=== PATIENT | male | born 1980 | race Caucasian/White ===

== ENCOUNTER 2019-11-03 03:56 | Emergency (ER) | payer OTHER, SELFPAY ==
[2019-11-03 03:56] VITALS: BP 150/78; PULSE 113; RESP 20; TEMP 37.4; O2SAT 96
[2019-11-03 04:34] LABS: Hematocrit 45.9 % (40.0-54.0); Hemoglobin 14.9 g/dL (14.0-18.0); Mean Corpuscular HGB Conc 32.5 g/dL (32.0-36.0); Mean Corpuscular Hemoglobin 29.8 pg (27.0-31.0); Mean Corpuscular Volume 91.8 fL (78.0-102.0); Mean Platelet Volume 9.6 fl (8.7-11.0); Platelet Count Result 139 K/mm3 (150-420); Red Cell Distribution Width 15.1 % (11.6-14.4); White Blood Count 15.5 K/mm3 (4.8-10.8)
[2019-11-03 04:43] LABS: Anion Gap 9.4 mmol/L (7-16); Blood Urea Nitrogen 16 mg/dL (7-18); Calcium 8.6 mg/dL (8.5-10.1); Carbon Dioxide 32 mmol/L (21-32); Chloride 103 mmol/L (98-108); Estimated Glomerular Filt Rate > 60; Glucose 153 mg/dL (70-99); Osmolality Calculated 296 mOsm/kg (285-295); Potassium 3.4 mmol/L (3.5-5.1); Sodium 141 mmol/L (136-145)
[2019-11-03 04:44] LABS: CRP 1.8 mg/dL (0.0-0.9)
--- NOTE | 2019-11-03 04:50 | ED.SKABFB ---
HPI - Skin/Abscess/Foreign Bdy General Chief complaint: Skin/Abscess/Foreign Body Stated complaint: PAIN Source: patient History of Present Illness HPI narrative: 39-year-old white male presents with redness in his right lower extremity from just below the right knee down to his toes. He has a history of cellulitis and in the past. He said it does not seem to be as bad as last time when it looks like it was blistering. He denies any fever but he does say it chills. Symptoms began last evening. In the past Bactrim has worked well he is also taking clindamycin but not sure his insurance will cover clindamycin. complaint: rash Onset (ago): day(s) (1) Location: RLE Severity: similar to previous episodes Quality: burning and constant Pain Consistency: constant Relieving factors: none Exacerbating factors: palpation Associated symptoms: chills Treatments prior to arrival: none Related Data Home Medications Medication Instructions Recorded Confirmed simvastatin 40 mg PO DAILY 07/18/19 11/03/19 tramadol 50 mg PO Q6H PRN 07/18/19 11/03/19 triamterene-hydrochlorothiazid 1 tablet PO DAILY 07/18/19 11/03/19 Allergies Allergy/AdvReac Type Severity Reaction Status Date / Time No Known Allergies Allergy Unverified 05/23/16 12:48 Review of Systems Constitutional: Constitutional: Denies fever(s) and Denies weakness Eyes: Eyes: Reports no additional eye complaints Cardiovascular: Cardiovascular: Reports no additional cardiovascular complaints Respiratory: Respiratory: Reports no additional respiratory complaints Gastrointestinal: Gastrointestinal: Reports no additional gastrointestinal complaints, Denies nausea and Denies vomiting Musculoskeletal: Musculoskeletal: Reports no additional musculoskeletal complaints Neurologic: Reports system reviewed and no additional complaints, except as documented Allergic/Immunologic: Allergic/Immunologic: Reports no additional allergic/immunologic complaints PMFSH Past Medical History Medical History Backache Cellulitis of lower limb Cigarette smoker Hematochezia Hypercholesterolemia Hypersomnia with sleep apnea Hypertension Internal hemorrhoid, bleeding Lumbar radiculopathy, chronic Lymphedema Morbid exogenous obesity Non-nicotine vapor product user Otitis externa 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 Respiratory obstruction Vapes nicotine containing substance Surgical History Surgical History No history of previous surgery Family History Family History Mother COPD (chronic obstructive pulmonary disease) Hypertension Heart disease Hyperlipidemia Father Hypertension Social History Social History Years smoked: 20 Smoking status: Current every day smoker Tobacco type: e-cigarettes Alcohol intake: current Drinks per week: 1 Substance use: never Substance use type: does not use Gender identity (if verbalized by the patient): Male Spiritual care concerns: No Agree to blood products: Yes Exam Const: General: healthy appearing, no acute distress and alert Nutritional Appearance: well nourished and obese morbidly obese Orientation/consciousness: patient oriented x3 HENMT: Head: normal to inspection Ears: external ears normal General nose exam: Normal external nose present Face and sinus: normal facial exam Mouth: Yes moist mucous membranes Eyes: Conjunctivae: conjunctivae normal Pupils: Equal, round and reactive pupils present EOM: EOMs intact bilaterally Neck: Neck: normal visual inspection Resp: Effort & Inspection: normal respiratory effort Auscultation: clear to auscultation bilaterally Cardio: Rate: regular rate Rhythm: regular rhythm GI: Auscultation: normal bowel sounds Back/Spine/Pelvis: Cervical Spine: cervical ROM normal Thoracic/Lumbar Spine: thoraco-lumbar ROM normal
[2019-11-03 05:05] VITALS: TEMP 37.4
== END 2019-11-03 05:05 | disposition home or self-care (01) ==
PROVIDERS: Emergency Provider Emergency Medicine; PCP Physician Assistant
DX: L03.115 Cellulitis of right lower limb (principal)
CPT/HCPCS: 36415; 80048; 85027; 86140; 87040; 99283; 99284; A9270

== ENCOUNTER 2020-11-20 01:41 | Emergency (ER) | payer MEDICARE, MEDICAID, SELFPAY ==
[2020-11-20 01:54] VITALS: BP 150/80; PULSE 90; RESP 22; TEMP 37; O2SAT 95
--- NOTE | 2020-11-20 02:02 | ED.SKABFB ---
HPI - Skin/Abscess/Foreign Bdy General Chief complaint: Skin/Abscess/Foreign Body Stated complaint: PAIN Time Seen by Provider: 11/20/20 01:43 Source: patient Mode of arrival: ambulatory Limitations: no limitations History of Present Illness HPI narrative: 40-year-old man with a history lymphedema and recurrent cellulitis of his right lower extremity comes in today complaining of 2 hours of warmth, redness, and tenderness of his right thigh. Patient states that he had some cephalexin at home which he started taking but does not had enough to get him through the weekend. He said he has had some mild chills but he has had no fever, vomiting, lightheadedness or weakness or shortness of breath. He states that cephalexin work very well for him in the past. He uses compression on his calves bilaterally and has had very few symptoms in his calves since he started getting those treatments. He has had more difficulty finding a way to do compression on his thigh. MD complaint: rash Onset (ago): hour(s) (2) Location: RLE Severity: moderate Quality: burning and sharp Pain Consistency: constant Relieving factors: none Exacerbating factors: palpation Associated symptoms: chills Treatments prior to arrival: antibiotic Related Data Home Medications Medication Instructions Recorded Confirmed simvastatin 40 mg PO DAILY 07/18/19 11/20/20 tramadol 50 mg PO Q6H PRN 07/18/19 11/20/20 triamterene-hydrochlorothiazid 1 tablet PO DAILY 07/18/19 11/20/20 Allergies Allergy/AdvReac Type Severity Reaction Status Date / Time No Known Allergies Allergy Unverified 05/23/16 12:48 Review of Systems Constitutional: Constitutional: Reports chills, Denies fever(s) and Denies weakness ENT: Denies nasal congestion and Denies sore throat Cardiovascular: Cardiovascular: Denies chest pain and Denies radiating jaw, neck or arm pain Respiratory: Respiratory: Denies cough and Denies dyspnea Gastrointestinal: Gastrointestinal: Denies abdominal pain, Denies nausea and Denies vomiting Musculoskeletal: Musculoskeletal: Denies myalgias, Denies arthralgias and Denies joint swelling Integumentary/Breasts: Skin/Breast: Reports as per HPI, Denies pruritus, Reports erythema and Denies rash Neurologic: Denies vertigo, Denies dizziness and Denies syncope Hematologic/Lymphatic: Hematologic/Lymphatic: Denies easy bleeding and Denies easy bruising Allergic/Immunologic: Allergic/Immunologic: Denies lip swelling and Denies throat swelling PMF Past Medical History Medical History Backache Cellulitis of lower limb Cigarette smoker Hematochezia Hypercholesterolemia Hypersomnia with sleep apnea Hypertension Internal hemorrhoid, bleeding Lumbar radiculopathy, chronic Lymphedema Morbid exogenous obesity Non-nicotine vapor product user Otitis externa 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 Respiratory obstruction Vapes nicotine containing substance Surgical History Surgical History No history of previous surgery Family History Family History Mother COPD (chronic obstructive pulmonary disease) Hypertension Heart disease Hyperlipidemia Father Hypertension Social History Social History Years smoked: 20 Smoking status: Current every day smoker Tobacco type: e-cigarettes/vaping Alcohol intake: current Drinks per week: 1 Substance use: never Substance use type: does not use Gender identity (if verbalized by the patient): Male Spiritual care concerns: No Agree to blood products: Yes Exam Const: General: alert Nutritional Appearance: obese Orientation/consciousness: patient oriented x3 Limitations: no limitations Other: Mild acute distress. HENMT: Mouth: Yes moist mucous membranes Throat: posterior oropharynx normal Eyes: Conjunctivae: conjunctivae normal Pupils: Equal,
[2020-11-20 02:54] LABS: Basophils Absolute Auto 0.05 K/mm3 (0.00-0.10); Basophils Percent Auto 0.4 % (0.0-1.0); Eosinophils Absolute Auto 0.18 K/mm3 (0.02-0.50); Eosinophils Percent Auto 1.5 % (1.0-6.0); Hematocrit 50.5 % (40.0-54.0); Hemoglobin 16.3 g/dL (14.0-18.0); Immature Granulocyte Absolute 0.04 K/mm3 (0.00-0.00); Immature Granulocyte Percent A 0.3 % (0.0-0.0); Immature Platelet Fraction Pct 2.1 % (1.0-7.0); Lymphocytes Absolute Auto 0.67 K/mm3 (1.10-4.50); Lymphocytes Percent Auto 5.6 % (18.0-42.0); Mean Corpuscular HGB Conc 32.3 g/dL (32.0-36.0); Mean Corpuscular Hemoglobin 29.5 pg (27.0-31.0); Mean Corpuscular Volume 91.5 fL (78.0-102.0); Monocytes Absolute Auto 0.57 K/mm3 (0.10-0.90); Monocytes Percent Auto 4.7 % (2.0-11.0); Neutrophils Absolute Auto 10.5 K/mm3 (1.7-7.2); Neutrophils Percent Auto 87.5 % (50.0-70.0); Platelet Count Result 143 K/mm3 (150-420); Red Blood Count 5.52 M/mm3 (4.70-6.10); Red Cell Distribution Width 14.7 % (11.6-14.4); White Blood Count 12.1 K/mm3 (4.8-10.8)
[2020-11-20 03:03] LABS: Alanine Aminotransferase 28 U/L (16-63); Albumin Level 3.7 g/dL (3.4-5.0); Alkaline Phosphatase 62 U/L (46-116); Anion Gap 7 mmol/L (8-16); Aspartate Amino Transferase 24 U/L (15-37); Bilirubin,Total 0.9 mg/dL (0.00-1.00); Blood Urea Nitrogen 19 mg/dL (7-18); CRP 0.9 mg/dL (0.0-0.9); Calcium 8.9 mg/dL (8.5-10.1); Carbon Dioxide 33 mmol/L (21-32); Chloride 100 mmol/L (98-108); Estimated CRCL calculation 163 ml/min; Estimated Glomerular Filt Rate > 60; Glucose 120 mg/dL (70-99); Osmolality Calculated 293 mOsm/kg (285-295); Potassium 3.7 mmol/L (3.5-5.1); Sodium 140 mmol/L (136-145); Total Protein 8.4 g/dL (6.4-8.2)
[2020-11-20 03:06] LABS: Lactic Acid Reflex 1.6 mmol/L (0.4-2.0)
[2020-11-20] MEDS: CEPHALEXIN 500 MG CAPSULE PO (03:11)
[2020-11-20 03:18] VITALS: BP 150/88; PULSE 88; RESP 20; TEMP 36.6; O2SAT 95
[2020-11-20 04:07] LABS: Erythrocyte Sedimentation Rate 8 mm/hr (0-15)
== END 2020-11-20 03:19 | disposition home or self-care (01) ==
PROVIDERS: Emergency Provider Emergency Medicine; PCP Physician Assistant
DX: I89.0 Lymphedema, not elsewhere classified (principal); L03.115 Cellulitis of right lower limb
CPT/HCPCS: 36415; 80053; 83605; 85025; 85055; 85652; 86140; 87040; 99283; A9270

== ENCOUNTER 2020-12-17 19:44 | Inpatient (IN) | payer MEDICARE, MEDICAID, SELFPAY ==
[2020-12-17 19:57] VITALS: BP 140/88; PULSE 90; RESP 20; TEMP 37; O2SAT 94
--- NOTE | 2020-12-17 20:17 | ED.EXTPRO ---
HPI - Extremity Problem General Chief complaint: Extremity Problem,Nontraumatic Stated complaint: thigh pain,warm and painful to touch Time Seen by Provider: 12/17/20 20:05 Source: patient and family Mode of arrival: ambulatory Limitations: no limitations History of Present Illness HPI Narrative: Patient states his right leg has been swollen and has become erythematous over the last day. He denies this cellulitis to his right thigh and right lower leg developed over any longer than that. He denies fever and chills. He denies any known precipitating factor triggering the cellulitis except for keeping his leg in a dependent position. Discomfort to areas with cellulitis is mild, with mild burning, ongoing he says since he noticed the cellulitis this am. Nothing has modified this,or made i any better or worse that he knows of at home. Cellulitis appears quite severe, covening most of thigh and lower leg. MD Complaint: extremity pain Onset (ago): day(s) Pain Consistency: constant Location: right Quality: burning Radiation: none Relieving factors: nothing Exacerbating factors: nothing Associated symptoms: denies other symptoms Context: other (history of leg being dependent) Related Data Home Medications Medication Instructions Recorded Confirmed simvastatin 40 mg PO DAILY 07/18/19 12/17/20 tramadol 50 mg PO Q6H PRN 07/18/19 12/17/20 triamterene-hydrochlorothiazid 1 tablet PO DAILY 07/18/19 12/17/20 Allergies Allergy/AdvReac Type Severity Reaction Status Date / Time No Known Allergies Allergy Unverified 05/23/16 12:48 Review of Systems Constitutional: Constitutional: Reports no additional constitutional complaints Eyes: Eyes: Reports no additional eye complaints ENT: Reports system reviewed and no additional complaints, except as documented Cardiovascular: Cardiovascular: Reports no additional cardiovascular complaints Respiratory: Respiratory: Reports no additional respiratory complaints Gastrointestinal: Gastrointestinal: Reports no additional gastrointestinal complaints Genitourinary: Genitourinary: Reports no additional male genitourinary complaints Musculoskeletal: Musculoskeletal: Reports no additional musculoskeletal complaints Integumentary/Breasts: Skin/Breast: Reports system reviewed and no additional complaints, except as docu Neurologic: Reports system reviewed and no additional complaints, except as documented Psychiatric: Psychiatric: Reports no additional psychiatric complaints Endocrine: Endocrine: Reports no additional endocrine complaints Hematologic/Lymphatic: Hematologic/Lymphatic: Reports no additional hematologic/lymphatic complaints Allergic/Immunologic: Allergic/Immunologic: Reports no additional allergic/immunologic complaints PMFSH Past Medical History Medical History Backache Cellulitis of lower limb Cigarette smoker Hematochezia Hypercholesterolemia Hypersomnia with sleep apnea Hypertension Internal hemorrhoid, bleeding Lumbar radiculopathy, chronic Lymphedema Morbid exogenous obesity Non-nicotine vapor product user Otitis externa 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 Respiratory obstruction Vapes nicotine containing substance Surgical History Surgical History No history of previous surgery Family History Family History Mother COPD (chronic obstructive pulmonary disease) Hypertension Heart disease Hyperlipidemia Father Hypertension Social History Social History Years smoked: 20 Smoking status: Current every day smoker Tobacco type: e-cigarettes/vaping Second hand tobacco smoke exposure: Yes Alcohol intake: never Drinks per week: 1 Substance use: never Substance use type: does not use Gender identity (if verbalized by the patient): Male Spiritual care concerns: No Agree to blood products: Yes
--- NOTE | 2020-12-17 20:30 | PC.NURSE ---
lab notified of blood draw at 2009, completed at 2031
[2020-12-17 20:38] LABS: Basophils Absolute Auto 0.06 K/mm3 (0.00-0.10); Basophils Percent Auto 0.4 % (0.0-1.0); Eosinophils Absolute Auto 0.03 K/mm3 (0.02-0.50); Eosinophils Percent Auto 0.2 % (1.0-6.0); Hematocrit 47.4 % (40.0-54.0); Hemoglobin 15.4 g/dL (14.0-18.0); Immature Granulocyte Absolute 0.08 K/mm3 (0.00-0.00); Immature Granulocyte Percent A 0.5 % (0.0-0.0); Lymphocytes Absolute Auto 0.52 K/mm3 (1.10-4.50); Lymphocytes Percent Auto 3.4 % (18.0-42.0); Mean Corpuscular HGB Conc 32.5 g/dL (32.0-36.0); Mean Corpuscular Hemoglobin 29.3 pg (27.0-31.0); Mean Corpuscular Volume 90.1 fL (78.0-102.0); Monocytes Absolute Auto 0.61 K/mm3 (0.10-0.90); Neutrophils Percent Auto 91.5 % (50.0-70.0); Platelet Count Result 143 K/mm3 (150-420); Red Blood Count 5.26 M/mm3 (4.70-6.10); Red Cell Distribution Width 15.1 % (11.6-14.4); White Blood Count 15.3 K/mm3 (4.8-10.8)
[2020-12-17 21:01] LABS: Alanine Aminotransferase 26 U/L (16-63); Albumin Level 3.4 g/dL (3.4-5.0); Alkaline Phosphatase 62 U/L (46-116); Anion Gap 7 mmol/L (8-16); Aspartate Amino Transferase < 10 U/L (15-37); Bilirubin,Total 1.5 mg/dL (0.00-1.00); Blood Urea Nitrogen 18 mg/dL (7-18); Calcium 8.8 mg/dL (8.5-10.1); Carbon Dioxide 30 mmol/L (21-32); Chloride 100 mmol/L (98-108); Estimated CRCL calculation 149 ml/min; Estimated Glomerular Filt Rate > 60; Glucose 112 mg/dL (70-99); Osmolality Calculated 286 mOsm/kg (285-295); Potassium 3.3 mmol/L (3.5-5.1); Sodium 137 mmol/L (136-145); Total Protein 7.9 g/dL (6.4-8.2)
[2020-12-17 21:02] LABS: Troponin I < 4.0 ng/L (0.00-60.4)
[2020-12-17 21:04] LABS: NT Pro B Type Natriuretic Pept 46 pg/mL (0-125)
[2020-12-17 21:15] LABS: Add Urine Microscopic? NO; Appearance Urine Clear (Clear); Bilirubin Urine Negative (Negative); Blood Urine Negative (Negative); Color Urine Yellow (Yellow); Glucose Urine UA Negative (Negative); Ketones Urine Negative (Negative); Leukocyte Esterase Ur Negative (Negative); Nitrate Urine Negative (Negative); Protein Urine Negative (Negative); Specific Grav Ur 1.015 (1.010-1.020); Urobilinogen Urine 0.2 mg/dL (0.2-1.0); pH Urine 5.5 (5.0-8.0)
[2020-12-17 21:44] LABS: Erythrocyte Sedimentation Rate 10 mm/hr (0-15)
[2020-12-17 21:52] VITALS: BP 150/88; PULSE 92; RESP 20; TEMP 36.6
--- NOTE | 2020-12-17 22:22 | PC.NURSE ---
pt pulled out iv, er nurse rupal unable to get another iv after x3 attempts, pt will only allow iv attempts to left arm
[2020-12-17] MEDS: ENOXAPARIN 120 MG/0.8 ML SYRINGE 230 MG SUB-Q (22:23)
--- NOTE | 2020-12-17 22:38 | PC.NURSE ---
Patient is admitted to room 226 from the ER, is alert and oriented, no c/o pain, transfers independently, oriented to room and surroundings.
[2020-12-17 22:41] VITALS: BMI 74.2
[2020-12-17 23:34] LABS: Magnesium 1.5 mg/dL (1.8-2.4)
[2020-12-18] MEDS: PHARMACIST COMMUNICATION ORDER 1 EACH XX (00:04)
[2020-12-18 00:07] VITALS: BP 106/55; PULSE 96; RESP 20; TEMP 38; O2SAT 93
[2020-12-18] MEDS: ACETAMINOPHEN 500 MG TABLET 1000 MG PO (04:16)
[2020-12-18] MEDS: DEXTROSE 5% IN WATER 50 ML 100 ML (05:37)
[2020-12-18 08:00] VITALS: BP 115/50; PULSE 88; RESP 20; TEMP 36.1; O2SAT 94
[2020-12-18 08:24] LABS: Hematocrit 45.6 % (40.0-54.0); Hemoglobin 14.4 g/dL (14.0-18.0); Mean Corpuscular HGB Conc 31.6 g/dL (32.0-36.0); Mean Corpuscular Volume 91.8 fL (78.0-102.0); Mean Platelet Volume 9.7 fl (8.7-11.0); Platelet Count Result 112 K/mm3 (150-420); Red Blood Count 4.97 M/mm3 (4.70-6.10); Red Cell Distribution Width 15.3 % (11.6-14.4); White Blood Count 10.8 K/mm3 (4.8-10.8)
--- NOTE | 2020-12-18 08:31 | PM.IMHP ---
H&P: HPI History of Present Illness Date/Time: 12/18/20 08:31 this is a 40-year-old male that presented to the ED with complaints of redness and swelling to his right lower extremity. Patient has a past medical history of cellulitis of the lower extremities, backache, cigarette smoker, hypertension, hypersomnia with sleep apnea, internal hemorrhoids bleeding, lumbar radiculopathy, lymphedema, morbidly obese,, respiratory obstruction, vapes nicotine-containing substance., pityriasis. Patient has a history of cellulitis. According to patient yesterday he noticed that his right lower leg and thigh felt warm to touch and was reddened and swollen and had a subjective fever. Patient notes that usually when he developed cellulitis this is the symptoms that he displays. He also notes that his right thigh and leg had a stinging sensation in his lower sal[place] was tender to touch. On admission patient's WBCs were 15.3 hemoglobin 15.4 hematocrit 47.4, platelets 143, D-dimer 0.34, sodium 137, potassium 3.3, BUN 18, creatinine 1.05, glucose 112, magnesium 1.5, total bili 1.5, AST 10, ALT 26, troponin 4.0, CRP 19.3, BUN 46 and UA normal patient started on Ancef and vancomycin. Admitted for IV antibiotic he will possibly discharge tomorrow in the a.m. patient notes that he no longer has tenderness or pain to the right leg he does still notice warmth to the right thigh. His condition has improved since his IV antibiotic therapy. The patient denies SOB, CP, palpitation, extremity numbness, lightheadedness, dizziness, constipation, diarrhea, chills, or fever. Disposition Home with self-care Time spent 60 minutes Inpatient <WILLIAN Greer - Last Filed: 12/18/20 12:52> Chief Complaint: Right lower leg edema and erythema <WILLIAN Greer - Last Filed: 12/18/20 12:52> Review of Systems Review of Systems: Narrative: A 14 organ system Review of Systems was performed and pertinent positives included in the HPI, otherwise remaining ROS is negative. <WILLIAN Greer - Last Filed: 12/18/20 12:52> All systems reviewed & are unremarkable except as noted in HPI and below <WILLIAN Greer - Last Filed: 12/18/20 12:52> [facility] Past Medical History Medical History: Medical History Backache Cellulitis of lower limb Cigarette smoker Hematochezia Hypercholesterolemia Hypersomnia with sleep apnea Hypertension Internal hemorrhoid, bleeding Lumbar radiculopathy, chronic Lymphedema Morbid exogenous obesity Non-nicotine vapor product user Otitis externa 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 Respiratory obstruction Vapes nicotine containing substance <WILLIAN Greer - Last Filed: 12/18/20 12:52> Surgical History Surgical History: Surgical History No history of previous surgery <WILLIAN Greer - Last Filed: 12/18/20 12:52> Family History Family History: Family History Mother COPD (chronic obstructive pulmonary disease) Hypertension Heart disease Hyperlipidemia Father Hypertension <WILLIAN Greer - Last Filed: 12/18/20 12:52> Social History Social History: Social History Years smoked: 20 Smoking status: Current every day smoker Tobacco type: e-cigarettes/vaping Second hand tobacco smoke exposure: Yes Alcohol intake: never Drinks per week: 1 Substance use: never Substance use type: does not use Gender identity (if verbalized by the patient): Male Spiritual care concerns: No Agree to blood products: Yes <WILLIAN Greer - Last Filed: 12/18/20 12:52> Meds Home Medications and Allergies Home medications: Home Medications Medication Instructions Recorded Confirmed Type simvastatin 40 mg PO DAILY 07/18/19 12/17/20 History tramadol 50 mg PO Q6H PRN 07/18/19 12/17/20 History triamterene-hydr
[2020-12-18 08:32] LABS: D Dimer 0.34 mg/L (0.19-0.50)
[2020-12-18 08:37] LABS: Alanine Aminotransferase 22 U/L (16-63); Alkaline Phosphatase 59 U/L (46-116); Anion Gap 6 mmol/L (8-16); Aspartate Amino Transferase < 10 U/L (15-37); Bilirubin,Total 1.8 mg/dL (0.00-1.00); Blood Urea Nitrogen 15 mg/dL (7-18); Calcium 8.7 mg/dL (8.5-10.1); Carbon Dioxide 32 mmol/L (21-32); Chloride 99 mmol/L (98-108); Estimated CRCL calculation 159 ml/min; Estimated Glomerular Filt Rate > 60; Glucose 127 mg/dL (70-99); Magnesium 1.9 mg/dL (1.8-2.4); Osmolality Calculated 286 mOsm/kg (285-295); Phosphorus 3.8 mg/dL (2.6-4.7); Potassium 3.3 mmol/L (3.5-5.1); Sodium 137 mmol/L (136-145); Total Protein 7.5 g/dL (6.4-8.2)
[2020-12-18 08:46] LABS: Albumin Level 3.1 g/dL (3.4-5.0)
[2020-12-18 08:48] LABS: CRP 19.3 mg/dL (0.0-0.9)
[2020-12-18] MEDS: MAGNESIUM SULF 2 GM/WATER 50ML 2 GM/50 ML BAG IVPB (08:49)
[2020-12-18] MEDS: TRIAMTERENE 37.5 MG/HCTZ 25 MG (MAXZIDE) TABLET 2 TAB PO (09:32)
[2020-12-18] MEDS: SIMVASTATIN 10 MG TABLET 40 MG PO (09:32)
[2020-12-18] MEDS: ENOXAPARIN 40 MG/0.4 ML SYRINGE SUB-Q (09:33)
--- NOTE | 2020-12-18 10:31 | PC.NURSE ---
Vancomycin infused late as Magnesium infusion in progress.
[2020-12-18 16:15] VITALS: BP 105/63; PULSE 87; RESP 18; TEMP 37.1; O2SAT 97
--- NOTE | 2020-12-18 20:00 | PC.NURSE ---
Patient sitting in chair watching tv. Saline lock intact to right hand. Patient's right thigh edematous, very warm to the touch and reddened. Drawing noted around reddened area but looks like the redness has receded a little. Tucker wraps in place to BLE's. Patient denies pain/complaints/needs @ this time. No distress noted. Call light in reach.
[2020-12-18] MEDS: traMADol HCL (*CRX) 50 MG TABLET PO (22:32)
[2020-12-18 23:46] VITALS: BP 140/66; PULSE 94; RESP 20; TEMP 37.3; O2SAT 92
[2020-12-19] MEDS: traMADol HCL (*CRX) 50 MG TABLET PO ×2 (07:52→21:29)
[2020-12-19 07:56] VITALS: BP 132/75; PULSE 82; RESP 20; TEMP 37; O2SAT 93
[2020-12-19 08:04] LABS: Hematocrit 45.3 % (40.0-54.0); Hemoglobin 14.6 g/dL (14.0-18.0); Mean Corpuscular HGB Conc 32.2 g/dL (32.0-36.0); Mean Corpuscular Hemoglobin 29.3 pg (27.0-31.0); Mean Platelet Volume 9.7 fl (8.7-11.0); Platelet Count Result 135 K/mm3 (150-420); Red Blood Count 4.98 M/mm3 (4.70-6.10); Red Cell Distribution Width 15.1 % (11.6-14.4); White Blood Count 7.8 K/mm3 (4.8-10.8)
[2020-12-19 08:24] LABS: Alanine Aminotransferase 24 U/L (16-63); Albumin Level 3.2 g/dL (3.4-5.0); Alkaline Phosphatase 64 U/L (46-116); Anion Gap 6 mmol/L (8-16); Aspartate Amino Transferase 11 U/L (15-37); Bilirubin,Total 1.2 mg/dL (0.00-1.00); Blood Urea Nitrogen 13 mg/dL (7-18); Calcium 9.2 mg/dL (8.5-10.1); Carbon Dioxide 32 mmol/L (21-32); Chloride 97 mmol/L (98-108); Estimated CRCL calculation 150 ml/min; Estimated Glomerular Filt Rate > 60; Glucose 115 mg/dL (70-99); Magnesium 2.2 mg/dL (1.8-2.4); Osmolality Calculated 281 mOsm/kg (285-295); Potassium 3.1 mmol/L (3.5-5.1); Sodium 135 mmol/L (136-145); Total Protein 8.3 g/dL (6.4-8.2)
[2020-12-19 08:31] LABS: CRP 23.7 mg/dL (0.0-0.9)
[2020-12-19 08:32] LABS: Vancomycin Trough 8.9 ug/mL (10.0-15.0)
[2020-12-19 08:36] VITALS: TEMP 36.8
[2020-12-19] MEDS: ENOXAPARIN 40 MG/0.4 ML SYRINGE SUB-Q (08:43)
[2020-12-19] MEDS: POTASSIUM CHLORIDE 20 MEQ TABLET 40 MEQ PO (08:43)
[2020-12-19] MEDS: SIMVASTATIN 10 MG TABLET 40 MG PO (08:44)
[2020-12-19] MEDS: TRIAMTERENE 37.5 MG/HCTZ 25 MG (MAXZIDE) TABLET 2 TAB PO (08:44)
--- NOTE | 2020-12-19 11:55 | P.PN_ITS ---
Progress Note: A&P Assessment and Plan (1) Cellulitis: Qualifiers: Laterality: right Site of cellulitis: extremity Site of cellulitis of extremity: lower extremity Qualified Code(s): L03.115 - Cellulitis of right lower limb <Bruce DennisWILLIAN - Last Filed: 12/19/20 12:00> Code(s): L03.90 - Cellulitis, unspecified <Bruce HewittWILLIAN Brantley - Last Filed: 12/19/20 12:00> Status: Acute <Bruce DennisWILLIAN - Last Filed: 12/19/20 12:00> Assessment and Plan: * History of cellulitis admitted into the hospital for cellulitis on 07/19/2019 in ED 11/03/2019 again in ED 11/20/20 * Patient received a couple of days of IV antibiotic vancomycin and Ancef and discharged home with p.o. antibiotic and follow-up with his primary care physician * WBCs on admission 15.3 now seven-point lactic acid within normal limits CRP elevated at 19.3>23.7, BNP 46 * Afebrile * Continue use of Tylenol <RoldanWILLIAN Roblero - Last Filed: 12/19/20 12:00> (2) Hypercholesterolemia: Code(s): E78.00 - Pure hypercholesterolemia, unspecified <Roldanshanna MarcelinaWILLIAN Brantley - Last Filed: 12/19/20 12:00> Status: Acute <Bruce MarcelinaWILLIAN Brantley - Last Filed: 12/19/20 12:00> Assessment and Plan: * Continue statins <WILLIAN Greer - Last Filed: 12/19/20 12:00> (3) Hypertension: Qualifiers: Hypertension type: essential hypertension Qualified Code(s): I10 - Essential (primary) hypertension <WILLIAN Greer - Last Filed: 12/19/20 12:00> Code(s): I10 - Essential (primary) hypertension <WILLIAN Greer - Last Filed: 12/19/20 12:00> Status: Acute <WILLIAN Greer - Last Filed: 12/19/20 12:00> Assessment and Plan: * Stable * Continue triamterene/ HCTZ <RoldanAJAY RobleroRemingtonShawn - Last Filed: 12/19/20 12:00> (4) Lymphedema: Code(s): I89.0 - Lymphedema, not elsewhere classified <FABIO Greer - Last Filed: 12/19/20 12:00> Status: Acute <WILLIAN Greer - Last Filed: 12/19/20 12:00> Assessment and Plan: * Keep lower extremities wrapped <RoldanAJAY RobleroRemingtonShawn - Last Filed: 12/19/20 12:00> (5) Morbid exogenous obesity: Code(s): E66.01 - Morbid (severe) obesity due to excess calories <RoldanWILLIAN Roblero - Last Filed: 12/19/20 12:00> Status: Acute <AJAY GreerRemingtonShawn - Last Filed: 12/19/20 12:00> Assessment and Plan: * Educated on healthy lifestyle <RoldanWILLIAN Roblero - Last Filed: 12/19/20 12:00> (6) Electrolyte imbalance: Code(s): E87.8 - Other disorders of electrolyte and fluid balance, not elsewhere classified <WILLIAN Greer - Last Filed: 12/19/20 12:00> Status: Acute <AJAY GreerRemingtonShawn - Last Filed: 12/19/20 12:00> Assessment and Plan: * potassium 3.3>3.1. 40 mEq ordered, magnesium 1.5>1.9. Patient may possibly have to discharge home with potassium supplements due to use of hydrochlorothiazide. * The education patient on electrolyte balance due to diuretics. Patient notes he will try to replenish his potassium via food or drink such as pineapple juice of bananas. <WILLIAN Greer - Last Filed: 12/19/20 12:00> Review of Systems Review of Systems: All systems reviewed & are unremarkable except as noted in HPI and below <WILLIAN Greer - Last Filed: 12/19/20 12:00> Exam Narrative: Exam Narrative: GENERAL: Morbidly obese in no apparent distress. HEAD: n
--- NOTE | 2020-12-19 11:55 | WPDPN ---
Progress Note: A&P Assessment and Plan (1) Cellulitis: Qualifiers: Laterality: right Site of cellulitis: extremity Site of cellulitis of extremity: lower extremity Qualified Code(s): L03.115 - Cellulitis of right lower limb <Roldanshanna MarcelinaWILLIAN Brantley - Last Filed: 12/19/20 12:00> Code(s): L03.90 - Cellulitis, unspecified <Bruce MarcelinaWILLIAN Brantley - Last Filed: 12/19/20 12:00> Status: Acute <Bruce HewittWILLIAN Brantley - Last Filed: 12/19/20 12:00> Assessment and Plan: History of cellulitis admitted into the hospital for cellulitis on 07/19/2019 in ED 11/03/2019 again in ED 11/20/20 Patient received a couple of days of IV antibiotic vancomycin and Ancef and discharged home with p.o. antibiotic and follow-up with his primary care physician WBCs on admission 15.3 now seven-point lactic acid within normal limits CRP elevated at 19.3>23.7, BNP 46 Afebrile Continue use of Tylenol <WILLIAN Greer - Last Filed: 12/19/20 12:00> (2) Hypercholesterolemia: Code(s): E78.00 - Pure hypercholesterolemia, unspecified <WILLIAN Greer - Last Filed: 12/19/20 12:00> Status: Acute <WILLIAN Greer - Last Filed: 12/19/20 12:00> Assessment and Plan: Continue statins <WILLIAN Greer - Last Filed: 12/19/20 12:00> (3) Hypertension: Qualifiers: Hypertension type: essential hypertension Qualified Code(s): I10 - Essential (primary) hypertension <WILLIAN Greer - Last Filed: 12/19/20 12:00> Code(s): I10 - Essential (primary) hypertension <WILLIAN Greer - Last Filed: 12/19/20 12:00> Status: Acute <WILLIAN Greer - Last Filed: 12/19/20 12:00> Assessment and Plan: Stable Continue triamterene/ HCTZ <RoldanWILLIAN Roblero - Last Filed: 12/19/20 12:00> (4) Lymphedema: Code(s): I89.0 - Lymphedema, not elsewhere classified <RoldanWILLIAN Roblero - Last Filed: 12/19/20 12:00> Status: Acute <WILLIAN Greer - Last Filed: 12/19/20 12:00> Assessment and Plan: Keep lower extremities wrapped <RoldanAJAY RobleroRemingtonShawn - Last Filed: 12/19/20 12:00> (5) Morbid exogenous obesity: Code(s): E66.01 - Morbid (severe) obesity due to excess calories <WILLIAN Greer - Last Filed: 12/19/20 12:00> Status: Acute <WILLIAN Greer - Last Filed: 12/19/20 12:00> Assessment and Plan: Educated on healthy lifestyle <WILLIAN Greer - Last Filed: 12/19/20 12:00> (6) Electrolyte imbalance: Code(s): E87.8 - Other disorders of electrolyte and fluid balance, not elsewhere classified <WILLIAN Greer - Last Filed: 12/19/20 12:00> Status: Acute <WILLIAN Greer - Last Filed: 12/19/20 12:00> Assessment and Plan: potassium 3.3>3.1. 40 mEq ordered, magnesium 1.5>1.9. Patient may possibly have to discharge home with potassium supplements due to use of hydrochlorothiazide. The education patient on electrolyte balance due to diuretics. Patient notes he will try to replenish his potassium via food or drink such as pineapple juice of bananas. <WILLIAN Greer Last Filed: 12/19/20 12:00> Review of Systems Review of Systems: All systems reviewed & are unremarkable except as noted in HPI and below <WILLIAN Greer - Last Filed: 12/19/20 12:00> Exam Narrative: Exam Narrative: GENERAL: Morbidly obese in no apparent distress. HEAD: normocephalic, atraumatic. EYES: PERRL. Sclera clear/white. Vision is grossly intact. EARS: External ears normal, auditory canals clear and without drainage, TMs normal without perforation. Hearing grossly intact. NOSE: External nose normal with no obvious nasal discharge, nares without redness, no rhinorrhea. THROAT: Mucous membranes moist, posterior pharynx clear. NECK: Neck suppl
[2020-12-19 16:35] VITALS: BP 120/69; PULSE 84; RESP 18; TEMP 37.7; O2SAT 96
[2020-12-20] VITALS: BP 112/64; PULSE 92; RESP 20; TEMP 36.4; O2SAT 92
[2020-12-20 06:38] LABS: Hematocrit 41.5 % (40.0-54.0); Hemoglobin 13.4 g/dL (14.0-18.0); Immature Platelet Fraction Pct 2.2 % (1.0-7.0); Mean Corpuscular HGB Conc 32.3 g/dL (32.0-36.0); Mean Corpuscular Hemoglobin 29.3 pg (27.0-31.0); Mean Corpuscular Volume 90.6 fL (78.0-102.0); Mean Platelet Volume 9.9 fl (8.7-11.0); Platelet Count Result 139 K/mm3 (150-420); Red Blood Count 4.58 M/mm3 (4.70-6.10); White Blood Count 6.8 K/mm3 (4.8-10.8)
[2020-12-20 07:05] LABS: Alanine Aminotransferase 18 U/L (16-63); Albumin Level 2.7 g/dL (3.4-5.0); Alkaline Phosphatase 65 U/L (46-116); Anion Gap 8 mmol/L (8-16); Aspartate Amino Transferase 15 U/L (15-37); Blood Urea Nitrogen 11 mg/dL (7-18); Calcium 8.5 mg/dL (8.5-10.1); Carbon Dioxide 33 mmol/L (21-32); Chloride 96 mmol/L (98-108); Estimated CRCL calculation 187 ml/min; Estimated Glomerular Filt Rate > 60; Glucose 118 mg/dL (70-99); Osmolality Calculated 284 mOsm/kg (285-295); Potassium 3.1 mmol/L (3.5-5.1); Sodium 137 mmol/L (136-145); Total Protein 7.5 g/dL (6.4-8.2)
[2020-12-20 08:00] VITALS: BP 146/67; PULSE 89; RESP 18; TEMP 36.7; O2SAT 91
[2020-12-20] MEDS: TRIAMTERENE 37.5 MG/HCTZ 25 MG (MAXZIDE) TABLET 2 TAB PO (08:53)
[2020-12-20] MEDS: SIMVASTATIN 10 MG TABLET 40 MG PO (08:53)
[2020-12-20 09:33] LABS: Vancomycin Trough 11.9 ug/mL (10.0-15.0)
[2020-12-20] MEDS: POTASSIUM CHLORIDE 20 MEQ TABLET 40 MEQ PO (09:35)
[2020-12-20] MEDS: ENOXAPARIN 40 MG/0.4 ML SYRINGE SUB-Q (10:31)
--- NOTE | 2020-12-20 10:57 | P.DS_ITS ---
DS: Admitting Diagnosis Admitting Diagnosis Admitting Diagnosis: Cellulitis, Lymphadema <Mkyel BreaTONA Aguilar - Last Filed: 12/20/20 11:16> DS: Discharge Diagnosis Discharge Diagnosis (1) Cellulitis: Qualifiers: Laterality: right Site of cellulitis: extremity Site of cellulitis of extremity: lower extremity Qualified Code(s): L03.115 - Cellulitis of right lower limb <Mykel BreaTONA Aguilar - Last Filed: 12/20/20 11:16> Code(s): L03.90 - Cellulitis, unspecified <Mykel BreaTONA Aguilar - Last Filed: 12/20/20 11:16> Status: Acute <Mykel GuidryTONA Aguilar - Last Filed: 12/20/20 11:16> Assessment and Plan: * History of cellulitis admitted into the hospital for cellulitis on 07/19/2019 in ED 11/03/2019 again in ED 11/20/20 * Patient received a couple of days of IV antibiotic vancomycin and Ancef and discharged home with p.o. antibiotic and follow-up with his primary care physician * WBCs on admission 15.3 now seven-point lactic acid within normal limits CRP elevated at 19.3>23.7, BNP 46 * Afebrile * Continue use of Tylenol 12/20/2020 Will DC Pt home with Clindamycin and for Pt to f/u with PCP within a week <Mykel BreaTONA Aguilar - Last Filed: 12/20/20 11:16> (2) Hypercholesterolemia: Code(s): E78.00 - Pure hypercholesterolemia, unspecified <Mykel BreaTONA Aguilar - Last Filed: 12/20/20 11:16> Status: Acute <Mykel BreaTONA Aguilar - Last Filed: 12/20/20 11:16> Assessment and Plan: * Continue statins <Mykel BreaTONA Aguilar - Last Filed: 12/20/20 11:16> (3) Hypertension: Qualifiers: Hypertension type: essential hypertension Qualified Code(s): I10 - Essential (primary) hypertension <TONA Tyson - Last Filed: 12/20/20 11:16> Code(s): I10 - Essential (primary) hypertension <Mykel Helms TECHNICAL SYSTEMS ARCHITECT-C - Last Filed: 12/20/20 11:16> Status: Acute <Mykel Helms APN-C - Last Filed: 12/20/20 11:16> Assessment and Plan: * Stable * Continue triamterene/ HCTZ 12/20/2020 VSS stable, continue at home with current regimen <Mykel Helms TECHNICAL SYSTEMS ARCHITECT-C - Last Filed: 12/20/20 11:16> (4) Lymphedema: Code(s): I89.0 - Lymphedema, not elsewhere classified <Mykel Helms TECHNICAL SYSTEMS ARCHITECT-C - Last Filed: 12/20/20 11:16> Status: Acute <Mykel Helms APN-C - Last Filed: 12/20/20 11:16> Assessment and Plan: * Keep lower extremities wrapped <Mykel Helms TECHNICAL SYSTEMS ARCHITECT-C - Last Filed: 12/20/20 11:16> (5) Morbid exogenous obesity: Code(s): E66.01 - Morbid (severe) obesity due to excess calories <Mykel Helms TECHNICAL SYSTEMS ARCHITECT-C - Last Filed: 12/20/20 11:16> Status: Acute <Mykel Helms APN-C - Last Filed: 12/20/20 11:16> Assessment and Plan: * Educated on healthy lifestyle 12/20/2020 Dietary information given at [place] <Mykel Helms TECHNICAL SYSTEMS ARCHITECT-C - Last Filed: 12/20/20 11:16> (6) Electrolyte imbalance: Code(s): E87.8 - Other disorders of electrolyte and fluid balance, not elsewhere classified <Mykel Helms TECHNICAL SYSTEMS ARCHITECT-C - Last Filed: 12/20/20 11:16> Status: Acute <Mykel Helms TECHNICAL SYSTEMS ARCHITECT-C - Last Filed: 12/20/20 11:16> Assessment and Plan: * potassium 3.3>3.1. 40 mEq ordered, magnesium 1.5>1.9. Patient ma y possibly have to discharge home with potassium supplements due to use of hydrochlorothiazide. * The education patient on electrolyte balance due to diuretics. Patient notes he will try to replenish his potassium via food or drink such as pineapple juice of bananas. 12/20/2020
--- NOTE | 2020-12-20 10:57 | PM.DS ---
DS: Admitting Diagnosis Admitting Diagnosis Admitting Diagnosis: Cellulitis, Lymphadema <TONA Tyson - Last Filed: 12/20/20 11:16> DS: Discharge Diagnosis Discharge Diagnosis (1) Cellulitis: Qualifiers: Laterality: right Site of cellulitis: extremity Site of cellulitis of extremity: lower extremity Qualified Code(s): L03.115 - Cellulitis of right lower limb <TONA Tyson - Last Filed: 12/20/20 11:16> Code(s): L03.90 - Cellulitis, unspecified <Mykel BreaTONA Aguilar - Last Filed: 12/20/20 11:16> Status: Acute <Mykel GuidryTONA Aguilar - Last Filed: 12/20/20 11:16> Assessment and Plan: History of cellulitis admitted into the hospital for cellulitis on 07/19/2019 in ED 11/03/2019 again in ED 11/20/20 Patient received a couple of days of IV antibiotic vancomycin and Ancef and discharged home with p.o. antibiotic and follow-up with his primary care physician WBCs on admission 15.3 now seven-point lactic acid within normal limits CRP elevated at 19.3>23.7, BNP 46 Afebrile Continue use of Tylenol 12/20/2020 Will DC Pt home with Clindamycin and for Pt to f/u with PCP within a week <TONA Tyson - Last Filed: 12/20/20 11:16> (2) Hypercholesterolemia: Code(s): E78.00 - Pure hypercholesterolemia, unspecified <TONA Tyson - Last Filed: 12/20/20 11:16> Status: Acute <Mykel BreaTONA Aguilar - Last Filed: 12/20/20 11:16> Assessment and Plan: Continue statins <TONA Tyson - Last Filed: 12/20/20 11:16> (3) Hypertension: Qualifiers: Hypertension type: essential hypertension Qualified Code(s): I10 - Essential (primary) hypertension <TONA Tyson - Last Filed: 12/20/20 11:16> Code(s): I10 - Essential (primary) hypertension <Mykel Helms APN-C - Last Filed: 12/20/20 11:16> Status: Acute <Mykel Helms APN-C - Last Filed: 12/20/20 11:16> Assessment and Plan: Stable Continue triamterene/ HCTZ 12/20/2020 VSS stable, continue at home with current regimen <Mykel Helms APN-C - Last Filed: 12/20/20 11:16> (4) Lymphedema: Code(s): I89.0 - Lymphedema, not elsewhere classified <JIGNA TysonN-C - Last Filed: 12/20/20 11:16> Status: Acute <Mykel Helms APN-C - Last Filed: 12/20/20 11:16> Assessment and Plan: Keep lower extremities wrapped <Mykel Helms APN-C - Last Filed: 12/20/20 11:16> (5) Morbid exogenous obesity: Code(s): E66.01 - Morbid (severe) obesity due to excess calories <Mykel Helms APN-C - Last Filed: 12/20/20 11:16> Status: Acute <Mykel Helms APN-C - Last Filed: 12/20/20 11:16> Assessment and Plan: Educated on healthy lifestyle 12/20/2020 Dietary information given at [place] <SADE TysonC - Last Filed: 12/20/20 11:16> (6) Electrolyte imbalance: Code(s): E87.8 - Other disorders of electrolyte and fluid balance, not elsewhere classified <Mykel Helms [employer] [place] [employer]-C - Last Filed: 12/20/20 11:16> Status: Acute <Mykel Helms APN-C - Last Filed: 12/20/20 11:16> Assessment and Plan: potassium 3.3>3.1. 40 mEq ordered, magnesium 1.5>1.9. Patient may possibly have to discharge home with potassium supplements due to use of hydrochlorothiazide. The education patient on electrolyte balance due to diuretics. Patient notes he will try to replenish his potassium via food or drink such as pineapple juice of bananas. 12/20/2020 Potassium being corrected. <TONA Tyson - Last Filed: 12/20/20 11:16> DS: Summary Hospital Course Hospital Course: RLE has improved with IV Ab. Pt not having any pain. DC with close f/u with PCP. <TONA Tyson - Last Filed: 12/20/20 11:16> Time Spent with Patient Time attestation: Total time spent providing and/or coordinating
--- NOTE | 2020-12-20 14:11 | PC.NURSE ---
Discharge instructions explained to pt. Iv in RH removed and band-aid applied. Ptm verbalized understanding that he has an appointment on Sunday at 10am with his PCP. Pt taked by WC to front entrance and helped into private car.
--- NOTE | 2020-12-21 11:46 | PC.NURSE ---
Invalid phone number for discharge call back.
== END 2020-12-20 13:25 | disposition home or self-care (01) | DRG 603 ==
LOC: CHSED 21:08 → CHS2ND 21:35
PROVIDERS: Nurse Practitioner; Admitting Provider Emergency Medicine; Emergency Provider Emergency Medicine; PCP Physician Assistant; Visit Provider Emergency Medicine
DX: L03.115 Cellulitis of right lower limb (principal); I89.0 Lymphedema, not elsewhere classified; I10 Essential (primary) hypertension; M54.16 Radiculopathy, lumbar region; E66.01 Morbid (severe) obesity due to excess calories; E78.00 Pure hypercholesterolemia, unspecified; L21.0 Seborrhea capitis; G47.10 Hypersomnia, unspecified; G47.30 Sleep apnea, unspecified; F17.290 Nicotine dependence, other tobacco product, uncomplicated
CPT/HCPCS: 36415; 80053; 80202; 81003; 83605; 83735; 83880; 84100; 84484; 85025; 85027; 85055; 85380; 85652; 86140; 87040; 96365; 99285; A9270; J0690; J1650; J3370; J3475

== ENCOUNTER 2021-01-25 15:34 | Outpatient (CLI) | payer MEDICARE, MEDICAID, SELFPAY | END 2021-01-25 15:35 | disposition home or self-care (01) | LOC: CHSLAB 15:39 | PROVIDERS: PCP Physician Assistant; Visit Provider Specialist | DX: L82.1 Other seborrheic keratosis (principal) | CPT/HCPCS: 88305 ==

== ENCOUNTER 2022-06-16 16:44 | Emergency (ER) | payer MEDICARE, MEDICAID, SELFPAY ==
[2022-06-16 16:50] VITALS: BP 158/83; PULSE 80; RESP 18; TEMP 36.8; O2SAT 95
--- NOTE | 2022-06-16 17:17 | ED.EXTPRO ---
HPI - Extremity Problem General Chief complaint: Extremity Problem,Nontraumatic Stated complaint: right leg pain Time Seen by Provider: 06/16/22 17:17 Source: patient and RN notes reviewed Mode of arrival: ambulatory Limitations: no limitations History of Present Illness HPI Narrative: Patient was diagnosed with cellulitis 3 days ago and only started the antibiotic 2 days ago. He says that has become more tender and red on his right lower extremity. He denies any severe calf pain. He has a history of cellulitis in the past and also has significant lymphedema in his lower extremities. He normally does some wrapping of his lower extremity but he is unable to do that because of the tenderness of the soft tissue. Complaint: extremity pain and extremity swelling Onset (ago): day(s) (3) Pain Consistency: constant Location: right and lower extremity Quality: burning, aching and constant Relieving factors: nothing Exacerbating factors: weight bearing and palpation Associated symptoms: denies other symptoms Related Data Home Medications Medication Instructions Recorded Confirmed simvastatin 40 mg tablet 40 mg PO DAILY 07/18/19 06/16/22 tramadol 50 mg tablet 50 mg PO Q6H PRN Pain 07/18/19 06/16/22 triamterene 75 1 tablet PO DAILY 07/18/19 06/16/22 mg-hydrochlorothiazide 50 mg tablet Allergies Allergy/AdvReac Type Severity Reaction Status Date / Time No Known Allergies Allergy Unverified 06/16/22 17:26 Review of Systems Review of Systems: All systems reviewed & are unremarkable except as noted in HPI and below Constitutional: Constitutional: Denies chills and Denies fever(s) Cardiovascular: Cardiovascular: Denies chest pain Respiratory: Respiratory: Denies dyspnea [facility] Past Medical History Medical History Backache Cellulitis of lower limb Cigarette smoker Hematochezia Hypercholesterolemia Hypersomnia with sleep apnea Hypertension Internal hemorrhoid, bleeding Lumbar radiculopathy, chronic Lymphedema Morbid exogenous obesity Non-nicotine vapor product user Otitis externa 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 Respiratory obstruction Vapes nicotine containing substance Surgical History Surgical History No history of previous surgery Family History Family History Mother COPD (chronic obstructive pulmonary disease) Hypertension Heart disease Hyperlipidemia Father Hypertension Social History Social History Years smoked: 20 Smoking status: Current every day smoker Tobacco type: e-cigarettes/vaping Second hand tobacco smoke exposure: Yes Alcohol intake: never Drinks per week: 1 Substance use: never Substance use type: does not use Gender identity (if verbalized by the patient): Male Spiritual care concerns: No Agree to blood products: Yes Exam Const: General: healthy appearing, no acute distress and alert Nutritional Appearance: well nourished and obese morbidly obese Orientation/consciousness: patient oriented x3 Limitations: no limitations HENMT: Head: normal to inspection Ears: external ears normal Face/Nose/Sinus: Normal external nose present Face and sinus: normal facial exam Mouth: Yes moist mucous membranes Eyes: Conjunctivae: conjunctivae normal Pupils: Equal, round and reactive pupils present EOM: EOMs intact bilaterally Neck: Neck: normal visual inspection Resp: Effort & Inspection: normal respiratory effort Auscultation: clear to auscultation bilaterally Cardio: Rate: regular rate Rhythm: regular rhythm GI: GI Palp: Yes Soft to palpation and No Tenderness to palpation present (GI) Auscultation: normal bowel sounds Back/Spine/Pelvis: Cervical Spine: cervical ROM normal Thoracic/Lumbar Spine: thoraco-lumbar ROM normal Neuro: General: patient oriented x3, moves all extremities, no focal motor deficits
[2022-06-16 17:19] VITALS: BP 158/83; PULSE 80; RESP 18; TEMP 36.8; O2SAT 95
[2022-06-16 18:21] LABS: Basophils Absolute Auto 0.03 K/mm3 (0.00-0.10); Basophils Percent Auto 0.5 % (0.0-1.0); Eosinophils Absolute Auto 0.12 K/mm3 (0.02-0.50); Eosinophils Percent Auto 2.1 % (1.0-6.0); Hematocrit 47.4 % (40.0-54.0); Hemoglobin 15.3 g/dL (14.0-18.0); Immature Granulocyte Percent A 1.7 % (0.0-0.0); Lymphocytes Absolute Auto 0.77 K/mm3 (1.10-4.50); Lymphocytes Percent Auto 13.4 % (18.0-42.0); Mean Corpuscular HGB Conc 32.3 g/dL (32.0-36.0); Mean Corpuscular Hemoglobin 28.7 pg (27.0-31.0); Mean Corpuscular Volume 88.9 fL (78.0-102.0); Mean Platelet Volume 9.3 fl (8.7-11.0); Monocytes Absolute Auto 0.66 K/mm3 (0.10-0.90); Monocytes Percent Auto 11.5 % (2.0-11.0); Neutrophils Absolute Auto 4.1 K/mm3 (1.7-7.2); Neutrophils Percent Auto 70.8 % (50.0-70.0); Platelet Count Result 194 K/mm3 (150-420); Red Blood Count 5.33 M/mm3 (4.70-6.10); Red Cell Distribution Width 14.1 % (11.6-14.4); White Blood Count 5.7 K/mm3 (4.8-10.8)
[2022-06-16 18:37] LABS: D Dimer 0.67 mg/L (0.19-0.50)
[2022-06-16 18:40] LABS: Lactic Acid Reflex 1.1 mmol/L (0.4-2.0)
[2022-06-16 18:44] LABS: Alanine Aminotransferase 27 U/L (16-63); Albumin Level 3.3 g/dL (3.4-5.0); Alkaline Phosphatase 67 U/L (46-116); Anion Gap 5 mmol/L (8-16); Aspartate Amino Transferase 16 U/L (15-37); Bilirubin,Total 1.1 mg/dL (0.00-1.00); Blood Urea Nitrogen 14 mg/dL (7-18); CRP 12.3 mg/dL (0.0-0.9); Calcium 8.6 mg/dL (8.5-10.1); Carbon Dioxide 36 mmol/L (21-32); Chloride 99 mmol/L (98-108); Estimated CRCL calculation 146 ml/min; Estimated Glomerular Filt Rate > 60; Glucose 100 mg/dL (70-99); Osmolality Calculated 290 mOsm/kg (285-295); Potassium 3.2 mmol/L (3.5-5.1); Sodium 140 mmol/L (136-145); Total Protein 8.8 g/dL (6.4-8.2)
[2022-06-16 19:02] VITALS: BP 140/90; PULSE 90; RESP 20; TEMP 37.2; O2SAT 96
== END 2022-06-16 19:09 | disposition home or self-care (01) ==
PROVIDERS: Emergency Provider Emergency Medicine; PCP Physician Assistant
DX: L03.115 Cellulitis of right lower limb (principal); E78.00 Pure hypercholesterolemia, unspecified; F17.200 Nicotine dependence, unspecified, uncomplicated
CPT/HCPCS: 36415; 80053; 83605; 85025; 85380; 86140; 87040; 99283

== ENCOUNTER 2023-09-20 16:26 | Emergency (ER) | payer MEDICARE, MEDICAID, SELFPAY ==
[2023-09-20 16:26] VITALS: BP 149/79; PULSE 89; RESP 20; TEMP 36.7; O2SAT 93
--- NOTE | 2023-09-20 16:40 | ED.EXTPRO ---
HPI - Extremity Problem General Chief complaint: Extremity Problem,Nontraumatic Stated complaint: right leg cellulitis Time Seen by Provider: 09/20/23 16:34 Source: patient Mode of arrival: ambulatory Limitations: no limitations History of Present Illness HPI Narrative: this is a 43-year-old morbidly obese gentleman that has a history of cellulitis and pannus in his right upper extremity that presents with some red warm and tender area in his right upper inner thigh above his knee that is warm and tender with no fever chills no shortness of breath no chest pain. Patient typically has a Danielson at cellulitis that he has been admitted to the hospital for the past but currently he likes to receive antibiotics to take care of the cellulitis prior to it becoming full minute. Currently no nausea vomiting no fever chills. MD Complaint: extremity swelling and other ( right upper extremity inner thigh erythema warmth and mild tender) Onset (ago): day(s) Pain Consistency: constant Location: right Related Data Home Medications Medication Instructions Recorded Confirmed simvastatin 40 mg tablet 40 mg PO DAILY 07/18/19 06/16/22 tramadol 50 mg tablet 50 mg PO Q6H PRN Pain 07/18/19 06/16/22 triamterene 75 1 tablet PO DAILY 07/18/19 06/16/22 mg-hydrochlorothiazide 50 mg tablet Allergies Allergy/AdvReac Type Severity Reaction Status Date / Time No Known Allergies Allergy Unverified 06/16/22 17:26 Review of Systems Review of Systems: All systems reviewed & are unremarkable except as noted in HPI and below PMFSH Past Medical History Medical History Backache Cellulitis of lower limb Cigarette smoker Hematochezia Hypercholesterolemia Hypersomnia with sleep apnea Hypertension Internal hemorrhoid, bleeding Lumbar radiculopathy, chronic Lymphedema Morbid exogenous obesity Non-nicotine vapor product user Otitis externa 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 Respiratory obstruction Vapes nicotine containing substance Surgical History Surgical History No history of previous surgery Family History Family History Mother COPD (chronic obstructive pulmonary disease) Hypertension Heart disease Hyperlipidemia Father Hypertension Social History Social History Years smoked: 20 Smoking status: Current every day smoker Tobacco type: e-cigarettes/vaping Second hand tobacco smoke exposure: Yes Alcohol intake: never Drinks per week: 1 Substance use: never Substance use type: does not use Gender identity (if verbalized by the patient): Male Spiritual care concerns: No Agree to blood products: Yes Exam Const: General: healthy appearing Nutritional Appearance: well nourished Orientation/consciousness: patient oriented x3 Limitations: no limitations Resp: Effort & Inspection: normal respiratory effort Auscultation: clear to auscultation bilaterally Cardio: Rate: regular rate Rhythm: regular rhythm GI: GI Palp: Yes Soft to palpation Skin: Wounds: wounds noted Other: A patch of erythema warmth and tenderness right inner thigh Neuro: General: patient oriented x3, moves all extremities and no meningeal signs Extrem: General: normal to inspection Psych: Mental Status: mental status grossly normal Course Course Emergency Course: patient received IM dose of 1g ceftriaxone and will be sending p.o. antibiotic clindamycin to his pharmacy. Vital Signs Vital signs: Vital Signs Temperature 36.7 C 09/20/23 16:26 Pulse Rate 89 09/20/23 16:26 Respiratory Rate 20 09/20/23 16:26 Blood Pressure 149/79 H 09/20/23 16:26 Pulse Oximetry 93 09/20/23 16:26 Oxygen Delivery Room Air 09/20/23 16:26 Temperature 36.7 C 09/20/23 16:26 Pulse Rate 89 09/20/23 16:26 Respiratory Rate 20 09/20/23 16:26 Blood Pressure 1
[2023-09-20] MEDS: cefTRIAXone 1 GM, LIDOCAINE HCL 1% LOCAL INJ 2.1 ML IM (16:51)
== END 2023-09-20 17:08 | disposition home or self-care (01) ==
LOC: CHSED 16:52
PROVIDERS: Emergency Provider Emergency Medicine; PCP Physician Assistant
DX: L03.115 Cellulitis of right lower limb (principal); I10 Essential (primary) hypertension; F17.290 Nicotine dependence, other tobacco product, uncomplicated
CPT/HCPCS: 96372; 99283; J0696

== ENCOUNTER 2024-01-04 19:49 | Emergency (ER) | payer MEDICARE, MEDICAID, SELFPAY ==
[2024-01-04 19:52] VITALS: BP 118/85; PULSE 97; RESP 20; TEMP 37.1; O2SAT 96
--- NOTE | 2024-01-04 20:24 | ED.SKABFB ---
HPI - Skin/Abscess/Foreign Bdy General Chief complaint: Skin/Abscess/Foreign Body Stated complaint: extremity problem, lower Time Seen by Provider: 01/04/24 20:04 Source: patient Mode of arrival: ambulatory Limitations: no limitations History of Present Illness HPI narrative: Patient is a 43-year-old male with a right thigh redness and inflammation of cellulitis. The patient gets this about once a year. He has lymphedema of the lower extremities. Right worse than left. about a year ago he use clindamycin and it worked well. MD complaint: rash and discoloration Onset (ago): day(s) (2) Tetanus up to date: unsure Location: RLE Severity: moderate Severity scale (1-10): 4 Quality: burning, aching and sharp Pain Consistency: constant Relieving factors: none Exacerbating factors: palpation Context: other ( Lymphedema) Associated symptoms: denies other symptoms Treatments prior to arrival: none Related Data Home Medications Medication Instructions Recorded Confirmed simvastatin 40 mg tablet 40 mg PO DAILY 07/18/19 01/04/24 triamterene 75 1 tablet PO DAILY 07/18/19 01/04/24 mg-hydrochlorothiazide 50 mg tablet Allergies Allergy/AdvReac Type Severity Reaction Status Date / Time No Known Allergies Allergy Verified 01/04/24 20:30 Review of Systems Review of Systems: All systems reviewed & are unremarkable except as noted in HPI and below Constitutional: Constitutional: Reports no additional constitutional complaints Eyes: Eyes: Reports no additional eye complaints ENT: Reports system reviewed and no additional complaints, except as documented Cardiovascular: Cardiovascular: Reports no additional cardiovascular complaints Respiratory: Respiratory: Reports no additional respiratory complaints Gastrointestinal: Gastrointestinal: Reports no additional gastrointestinal complaints Genitourinary: Genitourinary: Reports no additional male genitourinary complaints Musculoskeletal: Musculoskeletal: Reports no additional musculoskeletal complaints Integumentary/Breasts: Skin/Breast: Reports system reviewed and no additional complaints, except as docu Neurologic: Reports system reviewed and no additional complaints, except as documented Psychiatric: Psychiatric: Reports no additional psychiatric complaints Endocrine: Endocrine: Reports no additional endocrine complaints Hematologic/Lymphatic: Hematologic/Lymphatic: Reports no additional hematologic/lymphatic complaints Allergic/Immunologic: Allergic/Immunologic: Reports no additional allergic/immunologic complaints PMFSH Past Medical History Medical History Backache Cellulitis of lower limb Cigarette smoker Hematochezia Hypercholesterolemia Hypersomnia with sleep apnea Hypertension Internal hemorrhoid, bleeding Lumbar radiculopathy, chronic Lymphedema Morbid exogenous obesity Non-nicotine vapor product user Otitis externa 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 Respiratory obstruction Vapes nicotine containing substance Surgical History Surgical History No history of previous surgery Family History Family History Mother COPD (chronic obstructive pulmonary disease) Hypertension Heart disease Hyperlipidemia Father Hypertension Social History Social History Years smoked: 20 Smoking status: Current every day smoker Tobacco type: e-cigarettes/vaping Second hand tobacco smoke exposure: Yes Alcohol intake: never Drinks per week: 1 Substance use: never Substance use type: does not use Gender identity (if verbalized by the patient): Male Spiritual care concerns: No Agree to blood products: Yes Exam Const: General: healthy appearing Nutritional Appearance: well nourished Orientation/consciousness: patient oriented x3 HENMT: Head: normal to inspection Ears: external
[2024-01-04 20:39] LABS: Basophils Absolute Auto 0.05 K/mm3 (0.00-0.10); Basophils Percent Auto 0.7 % (0.0-1.0); Eosinophils Absolute Auto 0.07 K/mm3 (0.02-0.50); Hematocrit 50.8 % (40.0-54.0); Hemoglobin 16.2 g/dL (14.0-18.0); Immature Granulocyte Absolute 0.04 K/mm3 (0.00-0.00); Immature Granulocyte Percent A 0.6 % (0.0-0.0); Immature Platelet Fraction Pct 1.8 % (1.0-7.0); Lymphocytes Absolute Auto 0.38 K/mm3 (1.10-4.50); Lymphocytes Percent Auto 5.3 % (18.0-42.0); Mean Corpuscular HGB Conc 31.9 g/dL (32-36); Mean Corpuscular Hemoglobin 28.8 pg (27.0-31.0); Mean Corpuscular Volume 90.4 fL (78.0-102.0); Mean Platelet Volume 9.1 fl (8.7-11.0); Monocytes Absolute Auto 0.48 K/mm3 (0.10-0.90); Monocytes Percent Auto 6.7 % (2.0-11.0); Neutrophils Absolute Auto 6.18 K/mm3 (1.70-7.20); Neutrophils Percent Auto 85.7 % (50.0-70.0); Platelet Count Result 113 K/mm3 (150-420); Red Blood Count 5.62 M/mm3 (4.70-6.10); Red Cell Distribution Width 13.9 % (11.6-14.4); White Blood Count 7.2 K/mm3 (4.8-10.8)
[2024-01-04] MEDS: cefTRIAXone 1 GM, LIDOCAINE HCL 1% LOCAL INJ 2.1 ML IM (20:46)
[2024-01-04] MEDS: CLINDAMYCIN HCL 150 MG CAP 300 MG PO (20:46)
[2024-01-04 20:52] LABS: Alanine Aminotransferase 21 U/L (16-63); Albumin Level 3.5 g/dL (3.4-5.0); Alkaline Phosphatase 59 U/L (46-116); Anion Gap 4 mmol/L (4-12); Aspartate Amino Transferase 23 U/L (15-37); Bilirubin,Total 1.2 mg/dL (0.00-1.00); Blood Urea Nitrogen 18 mg/dL (7-18); Calcium 8.7 mg/dL (8.5-10.1); Carbon Dioxide 36 mmol/L (21-32); Chloride 99 mmol/L (98-108); Estimated CRCL calculation 141 ml/min; Estimated Glomerular Filt Rate > 60; Glucose 107 mg/dL (70-99); Osmolality Calculated 289 mOsm/kg (285-295); Potassium 3.5 mmol/L (3.5-5.1); Sodium 139 mmol/L (136-145); Total Protein 7.5 g/dL (6.4-8.2)
[2024-01-04 20:57] LABS: Lactic Acid Reflex 0.9 mmol/L (0.4-2.0)
== END 2024-01-04 21:21 | disposition home or self-care (01) ==
PROVIDERS: Emergency Provider Emergency Medicine; PCP Physician Assistant
DX: I89.0 Lymphedema, not elsewhere classified (principal); L03.115 Cellulitis of right lower limb; I10 Essential (primary) hypertension; E66.01 Morbid (severe) obesity due to excess calories; Z68.45 Body mass index [BMI] 70 or greater, adult; E78.00 Pure hypercholesterolemia, unspecified; F17.290 Nicotine dependence, other tobacco product, uncomplicated
CPT/HCPCS: 36415; 80053; 83605; 85025; 85055; 96372; 99283; A9270; J0696

== ENCOUNTER 2024-08-06 18:12 | Emergency (ER) | payer MEDICARE, MEDICAID, SELFPAY ==
[2024-08-06 18:13] VITALS: BP 159/76; PULSE 98; RESP 20; TEMP 36.7; O2SAT 92
--- NOTE | 2024-08-06 18:44 | ED.GENADULT ---
HPI - General Adult General Chief complaint: Skin/Abscess/Foreign Body Stated complaint: leg swelling Time Seen by Provider: 08/06/24 18:44 Source: patient Mode of arrival: ambulatory Limitations: no limitations History of Present Illness HPI narrative: 44 year old morbidly obese white male complains of right thigh skin infection. Patient has morbid obesity and lymphedema of his lower extremities with marked lymphedema on the right side area of his right thigh it is reddened and warm for the past several days. Denies any redness or irritation of his scrotum her problems voiding. Otherwise eating drinking voiding and stooling fine walking talking singing hearing fine without any fever cough runny nose sore throat other rash or bleeding or bruising or any other complaints. He has not been following his lymphedema physical therapy plan and has not seen anybody for over 5 months for this. followed by his primary care provider. He has had this once before and was on clindamycin. Denies any chest pain shortness of breath her pain anywhere. He has been wearing a compression sleeve on his thigh it keep his massive lymphedema of his right high from knocking against things when he gets into the car at and does activities. He has compression stockings and bandage on lower legs bilaterally. Related Data Home Medications ?Medication ?Instructions ?Recorded ?Confirmed ?Last Taken ?Type simvastatin 40 mg tablet 40 mg PO DAILY 07/18/19 08/06/24 01/04/24 History triamterene 75 1 tablet PO DAILY 07/18/19 08/06/24 01/04/24 History mg-hydrochlorothiazide 50 mg tablet fluticasone propionate 50 2 spray intranasal Q12H 08/06/24 08/06/24 Unknown History mcg/actuation nasal spray,suspension lorazepam 1 mg tablet 1 mg PO QHS PRN anxiety 08/06/24 08/06/24 Unknown History Allergies Allergy/AdvReac Type Severity Reaction Status Date / Time No Known Allergies Allergy Verified 08/06/24 18:34 [facility] Past Medical History Medical History (Updated 08/06/24 @ 19:15 by Moses Mena MD) Non-nicotine vapor product user Vapes nicotine containing substance Cigarette smoker Hypersomnia with sleep apnea Backache Lumbar radiculopathy, chronic 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 Cellulitis of lower limb Internal hemorrhoid, bleeding Hematochezia Respiratory obstruction Otitis externa Hypercholesterolemia Hypertension Lymphedema Morbid exogenous obesity Surgical History Surgical History No history of previous surgery Family History Family History Mother COPD (chronic obstructive pulmonary disease) Hypertension Heart disease Hyperlipidemia Father Hypertension Social History Social History Years smoked: 20 Smoking status: Current every day smoker Tobacco type: e-cigarettes/vaping Second hand tobacco smoke exposure: Yes Alcohol intake: never Drinks per week: 1 Substance use: never Substance use type: does not use Gender identity (if verbalized by the patient): Male Spiritual care concerns: No Agree to blood products: Yes Exam Narrative: White male patient Morbidly obese with no apparent distress. patient's 5 9 237 kg? Head normocephalic, atraumatic.? Eyes conjunctiva pink sclera nonicteric.? Extraocular movements are intact.? Ears externally normal.? Oropharynx is clear with moist mucous membranes without exudates.? Neck is supple nontender no lymphadenopathy.? Back is nontender.? Lungs are clear.? Heart is regular rate and rhythm without murmurs gallops or rubs.? Chest wall nontender. Abdomen is soft and nontender no hepatosplenomegaly or masses no CVA tenderness no abdominal bruits.? Extremities bilateral lymphedema lower extremities and his right upper strep he has a nerve his inner thigh about the size larger than a football of lymphedema that is erythematous and warm. Fortunately his testicles the scrotum and penis were normal without any signs of infection.? Skin is warm and dry.? Neurological patient is alert and oriented x4.? Motor and sensory grossly intact.? Gait is normal. Course Vital Signs Vital signs: Vital Signs Temperature 36.7 C 08/06/24 18:13 Pulse Rate 98 08/06/24 18:13 Respiratory Rate 20 08/06/24 18:13 Blood Pressure 159/76 H 08/06/24 18:13 Pulse Oximetry 92 08/06/24 18:13 Oxygen Delivery Room Air 08/06/24 18:13 Temperature 36.7 C 08/06/24 18:13 Pulse Rate 98 08/06/24 18:13 Respiratory Rate 20 08/06/24 18:13 Blood Pressure 159/76 H 08/06/24 18:13 Pulse Oximetry 92 08/06/24 18:13 Oxygen Delivery Room Air 08/06/24 18:13 Medical Decision Making MDM Narrative Medical decision making narrative: Patient placed in room: 7 ? History and physical was performed. Independent Historian: [email or web address] External Source Review: Differential Dx includes but not limited to: cellulitis Dominga's gangrene Medications were Reviewed: home meds reviewed Medications given: Rocephin 1 g Independently Interpreted by me: Shared decision Making: evaluation was discussed all questions were asked and answered patient agreed the plan he would take clindamycin 300 mg q.6 hours for 10 days follow up with his primary care provider and get consult with the lymphedema specialist and back on lymphedema physical therapy and start his exercises. Social Situation Impacting Patients Care: Morbid obesity chronic lymphedema Discussed with Dr. BARBOSA DIAGNOSIS: cellulitis of the right thigh chronic lymphedema DISPOSITION : discharge home CONDITION AT DISCHARGE: stable Vital Signs Vital Signs: Vital Signs Temperature 36.7 C 08/06/24 18:13 Pulse Rate 98 08/06/24 18:13 Respiratory Rate 20 08/06/24 18:13 Blood Pressure 159/76 H 08/06/24 18:13 Pulse Oximetry 92 08/06/24 18:13 Oxygen Delivery Room Air 08/06/24 18:13 Temperature 36.7 C 08/06/24 18:13 Pulse Rate 98 08/06/24 18:13 Respiratory Rate 20 08/06/24 18:13 Blood Pressure 159/76 H 08/06/24 18:13 Pulse Oximetry 92 08/06/24 18:13 Oxygen Delivery Room Air 08/06/24 18:13 Discharge Plan Discharge Clinical Impression: Morbid exogenous obesity, Lymphedema, Cellulitis Patient Disposition: Home, Self-Care Condition: Stable Instructions: Antibiotic Form, Cellulitis (ED) Additional Instructions: follow-up with your primary care provider in the next 1-7 days. Discussed further evaluation treatment here lymphedema. Clindamycin 600 mg every 6 hours for 10 days. Return if you get worse or develops any new symptoms. Patient Language: Portuguese Prescriptions: New clindamycin HCl 300 mg capsule 300 mg PO Q6H 10 Days Qty: 40 0RF No Action simvastatin 40 mg Tablet 40 mg PO DAILY triamterene-hydrochlorothiazid 75-50 mg Tablet 1 tablet PO DAILY fluticasone propionate 50 mcg/actuation spray,suspension 2 spray INTRANASAL Q12H lorazepam 1 mg tablet 1 mg PO QHS PRN (Reason: anxiety) Follow-up/Referrals: Joaquin,DELMA Holman [Primary Care Provider] - Time of Disposition: 19:16
--- NOTE | 2024-08-06 18:53 | PC.NURSE ---
assumed care. report received from loretta watkins
[2024-08-06] MEDS: cefTRIAXone 1 GM, LIDOCAINE 1% LOCAL INJ 2.1 ML IM (19:28)
--- NOTE | 2024-08-06 19:37 | PC.NURSE ---
medicated per mar. will monitor for s/s of reaction prior to discharge
[2024-08-06 19:45] VITALS: BP 148/78; PULSE 88; RESP 20; O2SAT 100
--- OUTSIDE RECORDS SUMMARY | 2024-08-13 23:13 | XMS_ITS | Encounter Summary ---
Author Organization [facility] Address [address] [place] [address]. [place] [address] [place] [address] Care Team Providers Care Custom Frame Assembler Name Role Phone Unavailable Primary Care Provider Unavailabl e Encounter Details Date Type Department Care Team (Late st Contact Info) Description 06/07/2017 Abstract [facility] [address] [facility] [place] [address] Kendall Diaz MD [address] [place] [id number] Social History Tobacco Use Types Packs/Day Years Used Date Smoking Tobacco: Never Assessed Sex and Gender Information Value Date Recorded Sex Assigned at Not on file Legal Sex Male 5:49 PM [employer] Gender Identity Not on file Sexual Orientation Not on file documented as of this encounter Plan of Treatment Not on file documented as of this encounter Visit Diagnoses Diagnosis Cellulitis of right lower extremity Cellulitis and abscess of leg, except foot documented in this encounter
--- OUTSIDE RECORDS SUMMARY | 2024-08-13 23:13 | XMS_ITS | Encounter Summary ---
Author Organization [facility] Address [address] [place] [address]. [place] [address] [place] [address] Care Team Providers Care Sash Sticker Name Role Phone Sukhwinder Nuñez Primary Care Provider [phone] Reason for Visit * Reason Comments Cellulitis Encounter Details Date Type Department Care Team (Late st Contact Info) Description 05/03/2019 12:02 PM CDT - 05/03/2019 1:46 PM CDT Emergency [facility] [address] [place] [address] Lux Fabian MD [address] [address] Cellulitis Discharge Disposition: Home or Self Care (Routine Discharge) Social History Tobacco Use Types Packs/Day Years Used Date Smoking Tobacco: Every Day Electronic Cigarettes Smokeless Tobacco: Never Alcohol Use Standard Drinks/Week Comments No 0 (1 standard drink = 0.6 oz pur e alcohol) AUDIT-C Answer Date Recorded Frequency of Alcohol Consumption Never 05/03/2019 Average Number of Drinks Not on file 019 Frequency of Binge Drinking Not on file 04/14 Sex and Gender Information Value Date Recorded Sex Assigned at Not on file 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 Gender Identity Not on file Sexual Orientation Not on file documented as of this encounter Last Filed Vital Signs Vital Sign Reading Time Taken Comments Blood Pressure 154/75 05/03/2019 1:19 PM CDT Pulse 87 05/03/2019 1:19 PM CDT Temperature 37.7 ??C (99.8 ??F) 05/03/2019 12:02 PM C DT Respiratory Rate 22 05/03/2019 1:19 PM CDT Oxygen Saturation 96% 05/03/2019 12:02 PM CDT Inhaled Oxygen Concentration - - Weight 226.8 kg (500 lb) 05/03/2019 12:02 PM CDT Height 175.3 cm (5' 9 ) 05/03/2019 12:02 PM CDT Body Mass Index 73.84 05/03/2019 12:02 PM CDT documented in this encounter Discharge Instructions * Attachments The following attachments cannot be sent through Care Everywhere. * Cellulitis (Skin Infection) Discharge Instructions, Adult (Congolese) documented in this encounter Medications at Time of Discharge simvastatin 40 MG tablet Take 40 mg by mouth daily. triamterene-hydro chlorothiazide 75-50 MG tablet Take 1 tablet by mouth daily. hydrocodone-aceta minophen 5-325 MG tablet Take 1 tablet by mouth every 6 (six) hours as needed for Pain. 10 tablet 05/03/2019 03/12/2023 sulfamethoxazole- trimethoprim (BACTRIM DS) 800-160 MG tablet Take 1 tablet by mouth 2 (two) times daily for 10 days. 20 tablet 05/03/2019 05/13/2019 documented as of this encounter ED Notes * Lux Fabian MD - 05/03/2019 12:03 PM CDT Chief Complaint Chief Complaint Patient presents with ??? Cellulitis History of Present Illness I, Luanne Horan, acting as a scribe, am personally taking down the notes in the presence of Dr. Lux Fabian MD. Take no action on this note until reviewed and authenticated by the physician. Patient is a 39 year old male presenting to the ED seeking evaluation for knee pain onset x4 hours ago. Patient states that he has a history of chronic cellulitis and lymphedema and approximately x4 hours ago he noticed a burning sensation in his right knee and approximately x1 hour ago he noticed that it was also swollen and red. Patient denies fever, chills, nausea, vomiting, diarrhea, chest pain, shortness of breath, cough, rhinorrhea, sore throat, abdominal pain, trauma or injury to area ofcomplaint, back or neck pain, headache, changes in vision/hearing/speech/bladder or bowel habits/eating or drinking habits. Patient denies any pertinent past medical history or taking any medication for pain relief. Patient is in otherwise baseline state of health and all other review of systems negative upon review. History provided by: Patient Medical History ALLERGIES: No Known Allergies MEDICATIONS: Prior to Admission medications Medication Sig Start Date End Date Taking? Authorizing Provider hydrocodone-acetaminophen 5-325 MG tablet Take 1 tablet by mouth every 6 (six) hours as needed for Pain. 05/03/19 Yes Lux Fabian MD sulfamethoxazole-trimethoprim (BACTRIM DS) 800-160 MG tablet Take 1 tablet by mouth 2 (two) times daily for 10 days. 05/03/19 05/13/19 Yes Lux Fabian MD simvastatin 40 MG tablet Take 40 mg by mouth daily. Doc Abstract triamterene-hydrochlorothiazide 75-50 MG tablet Take 1 tablet by mouth daily. Doc Abstract PAST MEDICAL HISTORY: Past Medical History: Diagnosis Date ??? Hyperlipemia ??? Hypertension PAST SURGICAL HISTORY: History reviewed. No pertinent surgical history. FAMILY HISTORY: No family history on file. SOCIAL HISTORY: Social History Tobacco Use ??? Smoking status: Current Every Day Smoker Types: Electronic Cigarettes ??? Smokeless tobacco: Never Used Substance Use Topics ??? Alcohol use: No Frequency: Never ??? Drug use: Not on file Review of Systems Review of Systems Constitutional: Negative. HENT: Negative. Eyes: Negative. Respiratory: Negative. Cardiovascular: Negative. Gastrointestinal: Negative. Endocrine: Negative. Genitourinary: Negative. Musculoskeletal: Positive for myalgias (Pain, swelling, and redness to right knee). Skin: Negative. Allergic/Immunologic: Negative. Neurological: Negative. Hematological: Negative. Psychiatric/Behavioral: Negative. Physical Exam Filed Vitals: 05/03/19 1202 05/03/19 1319 BP: 171/71 154/75 Pulse: 98 87 Resp: 20 22 Temp: 99.8 ??F (37.7 ??C) TempSrc: Temporal SpO2: 96% Weight: (!) 226.8 kg (500 lb) Height: 5' 9 (1.753 m) Physical Exam Constitutional: He is oriented to person, place, and time. He appears well- developed and well-nourished. HENT: Head: Normocephalic and atraumatic. Eyes: Conjunctivae and EOM are normal. Pupils are equal, round, and reactive to light. Neck: Normal range of motion. Neck supple. Cardiovascular: Normal rate, regular rhythm and normal heart sounds. Pulmonary/Chest: Effort normal and breath sounds normal. Abdominal: Soft. Bowel sounds are normal. Musculoskeletal: Normal range of motion. He exhibits tenderness (Tenderness and swelling to right medial knee). Neurological: He is alert and oriented to person, place, and time. Skin: Skin is warm and dry. There is erythema (Erythema to right medial knee). Nursing note and vitals reviewed. Diagnostic Studies / Procedures ELECTROCARDIOGRAMS: No results found for this visit on 05/03/19. LABORATORY STUDIES: Results for orders placed or performed during the hospital encounter of 05/03/19 D-DIMER, QUANTITATIVE Result Value Ref Range D-DIMER 324 <501 ng[FEU]/mL CBC W/DIFF AUTOMATED Result Value Ref Range WBC 9.6 4.5 - 10.8 x10'3/uL RBC 5.58 4.50 - 6.10 x10'6/uL HGB 15.2 13.0 - 18.0 G/DL HCT 49.9 37.0 - 52.0 % MCV 89.4 78.0 - 100.0 FL MCH 27.2 27.0 - 31.0 PG MCHC 30.5 (L) 33.0 - 36.0 G/DL RDW 15.1 (H) 11.5 - 14.5 % PLT 145 (L) 150 - 350 x10'3/uL MPV 9.6 7.4 - 10.4 FL Differential Comment NORMAL REFERENCE RANGE NOT ESTABLISHED FOR THE PROPORTIONAL LEUKOCYTE DIFFERENTIAL. SEG NEUTROPHILS 82.9 % LYMPHOCYTES 7.9 % MONOCYTES 6.4 % EOSINOPHILS 2.0 % BASOPHILS 0.5 % IMMATURE GRANS 0.3 % NRBC 0.0 % ABS. NEUTROPHILS 7.99 1.60 - 8.30 x10'3/uL ABS. LYMPHOCYTES 0.76 (L) 0.80 - 4.70 x10'3/uL ABS. MONOCYTES 0.62 0.00 - 1.50 x10'3/uL ABS. EOSINOPHILS 0.19 0.00 - 0.40 x10'3/uL ABS. BASOPHILS 0.05 0.00 - 0.20 x10'3/uL ABS. IMMATURE GRANULOCYTES 0.03 0.00 - 0.03 x10'3/uL ABS. NUCLEATED RBC'S 0.00 0.00 x10'3/uL COMPREHENSIVE METABOLIC PANEL Result Value Ref Range SODIUM 140 136 - 145 MMOL/L POTASSIUM 3.3 (L) 3.5 - 5.1 MMOL/L CHLORIDE 100 98 - 107 MMOL/L CO2 34.1 (H) 21.0 - 32.0 MMOL/L GLUCOSE 122 (H) 70 - 99 MG/DL BUN 19 6 - 24 MG/DL CREATININE 1.05 0.70 - 1.30 MG/DL CALCIUM 8.8 8.4 - 10.5 MG/DL TOTAL BILIRUBIN 0.7 0.2 - 1.0 MG/DL ALK PHOS 75 45 - 115 U/L AST 16 15 - 37 U/L ALT 23 16 - 63 U/L TOTAL PROTEIN 8.2 6.4 - 8.2 G/DL ALBUMIN 3.7 3.4 - 5.0 G/DL ANION GAP 5.9 5.0 - 15.0 MMOL/L OSMOLALITY (CALC) 294 MOSM/KG eGFR Non-Afr. Amer. 88 (L) >89 ML/MIN/1.73 M2 eGFR Afr. Amer. >90 >89 ML/MIN/1.73 M2 GFR NOTES THE ESTIMATED GFR IS CALCULATED USING THE 2009 CKD-EPI EQUATION. THE FOLLOWING CATEGORIES FOR GRADING RENAL FUNCTION ARE RECOMMENDED BY THE INTERNATIONAL SOCIETY OF NEPHROLOGY (KDIGO 2012 CLINICAL PRACTICE GUIDELINE). IMAGING STUDIES No orders to display ED Course / Medical Decision Making Medications hydrocodone-acetaminophen (NORCO) 7.5-325 MG tablet 1 tablet (1 tablet Oral Given 05/03/19 1327) sulfamethoxazole-trimethoprim (BACTRIM DS,SEPTRA DS) 800-160 MG tablet 1 tablet (1 tablet Oral Given 05/03/19 1212) Current Discharge Medication List START taking these medications Details hydrocodone-acetaminophen 5-325 MG tablet Take 1 tablet by mouth every 6 (six) hours as needed for Pain. Qty: 10 tablet, Refills: 0 Class: Print Pharmacy: [facility] - [address] (Ph #: [phone]) sulfamethoxazole-trimethoprim (BACTRIM DS) 800-160 MG tablet Take 1 tablet by mouth 2 (two) times daily for 10 days. Qty: 20 tablet, Refills: 0 Class: Eprescribe Pharmacy: [facility] [place], [place] - [address] (Ph #: [phone]) DELMA Flynn [address] [facility] [address] As needed Clinical Impression Cellulitis (Primary) Luanne Bereket Horan, 05/03/19, 13:42. Provider Attestation: I have examined and treated the patient as above. Disposition: Discharge Lux Fabian MD 05/03/19 1342 * Lucy Sharma RN - 05/03/2019 11:55 AM CDT PT ARRIVES PER POV WITH C/O CELLULITIS TO R KNEE. * Lux Fabian MD - 05/03/2019 11:51 AM CDT Chief Complaint No chief complaint on file. History of Present Illness Medical History ALLERGIES: Allergies not on file MEDICATIONS: Prior to Admission medications Not on File PAST MEDICAL HISTORY: No past medical history on file. PAST SURGICAL HISTORY: No past surgical history on file. FAMILY HISTORY: No family history on file. SOCIAL HISTORY: Social History Tobacco Use ??? Smoking status: Not on file Substance Use Topics ??? Alcohol use: Not on file ??? Drug use: Not on file Review of Systems Review of Systems Physical Exam There were no vitals filed for this visit. Physical Exam Diagnostic Studies / Procedures ELECTROCARDIOGRAMS: No results found for this visit on 05/03/19. LABORATORY STUDIES: No results found for this visit on 05/03/19. IMAGING STUDIES No orders to display ED Course / Medical Decision Making Clinical Impression None Disposition: Data Unavailable Lux Fabian MD 05/04/19 0728 documented in this encounter Plan of Treatment Not on file documented as of this encounter Procedures Procedure Name Priority Date/Time Associated Diagnosis Comments COMPREHENSIVE METABOLIC PANEL STAT 05/03/2019 12:23 PM CDT D-DIMER, QUANTITATIVE STAT 05/03/2019 12:23 PM CDT CBC W/DIFF AUTOMATED STAT 05/03/2019 12:23 PM CDT documented in this encounter Results * (ABNORMAL) COMPREHENSIVE METABOLIC PANEL (05/03/2019 12:23 PM CDT) SODIUM S/P/B 140 136 - 145 MMOL/L 05/03/2019 12:46 PM CDT [facility] POTASSIUM S/P/B 3.3(L) 3.5 - 5.1 MMOL/L 05/03/2019 12:46 PM CDT [facility] CHLORIDE S/P/B 100 98 - 107 MMOL/L 05/03/2019 12:46 PM CDT [facility] CO2 34.1(H) 21.0 - 32.0 MMOL/L 05/03/2019 12:46 PM CDT [facility] GLUCOSE 122(H) 70 - 99 MG/DL 05/03/2019 12:46 PM CDT [facility] Comment: FASTING GLUCOSE 100 TO 125 MG/DL IS CONSISTENT WITH IMPAIRED FASTING GLUCOSE. FASTING GLUCOSE >125 MG/DL IS CONSISTENT WITH DIABETES. RANDOM GLUCOSE >200 MG/DL WITH HYPERGLYCEMIC SYMPTOMS IS CONSISTENT WITH DIABETES. PER ADA GUIDELINES BUN 19 6 - 24 MG/DL 05/03/2019 12:46 PM CDT [facility] CREATININE S/P/B 1.05 0.70 - 1.30 MG/DL 05/03/2019 12:46 PM CDT [facility] CALCIUM S/P/B 8.8 8.4 - 10.5 MG/DL 05/03/2019 12:46 PM CDT [facility] BILIRUBIN TOTAL S/P/B 0.7 0.2 - 1.0 MG/DL 05/03/2019 12:46 PM CDT [facility] ALKALINE PHOSPHATASE S/P/B 75 45 - 115 U/L 05/03/2019 12:46 PM CDT [facility] AST 16 15 - 37 U/L 05/03/2019 12:46 PM T [facility] ALT 23 16 - 63 U/L 05/03/2019 12:46 PM T [facility] TOTAL PROTEIN S/P/B 8.2 6.4 - 8.2 G/DL 05/03/2019 12:46 PM T [facility] ALBUMIN S/P/B 3.7 3.4 - 5.0 G/DL 05/03/2019 12:46 PM T [facility] ANION GAP 5.9 5.0 - 15.0 MMOL/L 05/03/2019 12:46 PM T [facility] OSMOLALITY (CALC) 294 MOSM/KG 05/03/2019 12:46 PM T [facility] Comment:REFERENCE RANGE NOT ESTABLISHED EGFR NON-AFR. AMER. 88(L) >89 ML/MIN/1 .73 M2 05/03/2019 12:46 PM T [facility] EGFR AFR. AMER. >90 >89 ML/MIN/1 .73 M2 05/03/2019 12:46 PM [facility] GFR NOTES THE ESTIMATED GFR IS CALCULATED USING THE 2009 CKD-EPI EQUATION. THE FOLLOWING CATEGORIES FOR GRADING RENAL FUNCTION ARE RECOMMENDED BY THE INTERNATIONAL SOCIETY OF NEPHROLOGY (KDIGO 2012 CLINICAL PRACTICE GUIDELINE). 05/03/2019 12:46 PM T [facility] Comment: G1,NORMAL OR HIGH: >89 ml/min/1.73 m2 G2,MILDLY DECREASED: 60-89 ml/min/1.73 m2 G3A,MILDLY TO MODERATELY DECREASED: 45-59 ml/min/1.73 m2 G3B,MODERATELY TO SEVERELY DECREASED: 30-44 ml/min/1.73 m2 G4,SEVERELY DECREASED: 15-29 ml/min/1.73 m2 G5,KIDNEY FAILURE: <15 ml/min/1.73 m2 05/03/2019 12:2 3 PM CDT Lux Fabian MD LABORATORY Final Resul t [facility] [address] [place] [address], * (ABNORMAL) CBC W/DIFF AUTOMATED (05/03/2019 12:23 PM CDT) WBC 9.6 4.5 - 10.8 x10'3/uL 05/03/2019 12:30 PM CDT [facility] RBC 5.58 4.50 - 6.10 x10'6/uL 05/03/2019 12:30 PM CDT [facility] HGB 15.2 13.0 - 18.0 G/DL 05/03/2019 12:30 PM CDT [facility] HCT 49.9 37.0 - 52.0 % 05/03/2019 12:30 PM CDT [facility] MCV 89.4 78.0 - 100.0 FL 05/03/2019 12:30 PM CDT [facility] MCH 27.2 27.0 - 31.0 PG 05/03/2019 12:30 PM CDT [facility] MCHC 30.5(L) 33.0 - 36.0 G/DL 05/03/2019 12:30 PM CDT [facility] RDW 15.1(H) 11.5 - 14.5 % 05/03/2019 12:30 PM CDT [facility] PLT 145(L) 150 - 350 x10'3/uL 05/03/2019 12:30 PM CDT [facility] MPV 9.6 7.4 - 10.4 FL 05/03/2019 12:30 PM CDT [facility] DIFFERENTIAL COMMENT NORMAL REFERENCE RANGE NOT ESTABLISHED FOR THE PROPORTIONAL LEUKOCYTE DIFFERENTIAL. 05/03/2019 12:30 PM CDT [facility] SEG NEUTROPHILS 82.9 % 9 12:30 PM CDT [facility] LYMPHOCYTES 7.9 % 05/03/2019 12:30 PM CDT [facility] MONOCYTES 6.4 % 05/03/2019 12:30 PM CDT [facility] EOSINOPHILS 2.0 % 05/03/2019 12:30 PM CDT [facility] BASOPHILS 0.5 % 05/03/2019 12:30 PM CDT [facility] IMMATURE GRANS % 0.3 % 05/03/20 12:30 PM CDT [facility] NRBC 0.0 % 05/03/2019 12:30 PM CDT [facility] ABS. NEUTROPHILS 7.99 1.60 - 8.30 x10'3/uL 05/03/2019 12:30 PM CDT [facility] ABS. LYMPHOCYTES 0.76(L) 0.80 - 4.70 x10'3/uL 05/03/2019 12:30 PM CDT [facility] ABS. MONOCYTES 0.62 0.00 - 1.50 x10'3/uL 05/03/2019 12:30 PM CDT [facility] ABS. EOSINOPHILS 0.19 0.00 - 0.40 x10'3/uL 05/03/2019 12:30 PM CDT [facility] ABS. BASOPHILS 0.05 0.00 - 0.20 x10'3/uL 05/03/2019 12:30 PM CDT [facility] ABS. IMMATURE GRANULOCYTES 0.03 0.00 - 0.03 x10'3/uL 05/03/2019 12:30 PM CDT [facility] ABS. NUCLEATED RBC'S 0.00 0.00 x10'3/uL 05/03/2019 12:30 PM CDT [facility] 05/03/2019 12:2 3 PM CDT us Lux Fabian MD LABORATORY Final Resul t [facility] [address] [place] [address], * D-DIMER, QUANTITATIVE (05/03/2019 12:23 PM CDT) D-DIMER 324 <501 ng{FEU}/mL 05/03/2019 12:40 PM CDT [facility] Comment: A D DIMER RESULT LESS THAN OR EQUAL TO 500 NG/ML FEU HAS A NEGATIVE PREDICTIVE VALUE GREATER THAN 96% FOR THE EXCLUSION OF ACUTE PULMONARY EMBOLISM OR DEEP VEIN THROMBOSIS WHEN THERE IS LOW TO MODERATE PRETEST PROBABILITY. 05/03/2019 12:2 3 PM CDT us Lux Fabian MD LABORATORY Final Resul t [facility] [address] [place] [address], documented in this encounter Visit Diagnoses Diagnosis Cellulitis- Primary Cellulitis and abscess of unspecified site documented in this encounter Administered Medications Inactive Administered Medications - up to 3 most recent administrations Medication Order MAR Action Action Date Dose Rate Site hydrocodone-acetaminophen (NORCO) 7.5-325 MG tablet 1 tablet 1 tablet, Oral, Every 6 hours PRN, Moderate pain (Scale 4 - 7), 2 doses, Starting on 05/03/19 at 1307, Until 05/03/19 at 1548, MEDICATION FOR TAKE HOME Given 05/03/2019 1:27 PM CDT 1 tablet sulfamethoxazole-trimethoprim (BACTRIM DS,SEPTRA DS) 800-160 MG tablet 1 tablet 1 tablet, Oral, Once, 1 dose, On 05/03/19 at 1215 Given 05/03/2019 12:12 PM CDT 1 tablet documented in this encounter Active and Recently Administered Medications Times are shown in CDT. Scheduled Medication Order 05/01/2019 05/02/2019 05/03/2019 sulfamethoxazole-trimethoprim (BACTRIM DS,SEPTRA DS) 800-160 MG tablet 1 tablet (COMPLETED) 1 tablet, Oral, Once, 1 dose, On 05/03/19 at 1215 1212 (Given - Provid er: Kelly Ware RN) PRN Medication Order 05/01/2019 05/02/2019 05/03/2019 hydrocodone-acetaminophen (NORCO) 7.5-325 MG tablet 1 tablet 1 tablet, Oral, Every 6 hours PRN, Moderate pain (Scale 4 - 7), 2 doses, Starting on 05/03/19 at 1307, Until 05/03/19 at 1548, MEDICATION FOR TAKE HOME 1327 (Given - Provid er: Kelly Ware RN) documented in this encounter Care Teams Sash Sticker Relationship Specialty Start Date End Date Sukhwinder Nuñez PA [address] [place] [address] PCP - General PHYSICIAN SCHOOL LEADER 05/03/19 documented as of this encounter
--- OUTSIDE RECORDS SUMMARY | 2024-08-13 23:13 | XMS_ITS | Encounter Summary ---
Author Organization [facility] Address [address] [place] [address]. 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
--- OUTSIDE RECORDS SUMMARY | 2024-08-13 23:13 | XMS_ITS | Clinical Summary ---
Author Organization [facility] Address [address] [place] [address]. [place] [address] [place] [address] Care Team Providers Care Community Health Director Name Role Phone Sukhwinder Nuñez Primary Care Provider [phone] Allergies No known active allergies Medications simvastatin 40 MG tablet Take 40 mg by mouth daily. Active triamterene-hyd rochlorothiazid e 75-50 MG tablet Take 1 tablet by mouth daily. Active LORazepam (ATIVAN) 1 MG tablet Take 1 tablet (1 mg total) by mouth nightly as needed. 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 Gender Identity Not on file Sexual Orientation Not on file Last Filed Vital Signs Vital Sign Reading Time Taken Comments Blood Pressure 133/70 08/03/2024 7:55 PM CARTRIDGE BELT PUNCHER Pulse 99 08/03/2024 7:15 PM CARTRIDGE BELT PUNCHER Temperature 36.5 ??C (97.7 ??F) 08/03/2024 7:15 PM CS T Respiratory Rate 16 08/03/2024 7:15 PM CARTRIDGE BELT PUNCHER Oxygen Saturation 93% 08/03/2024 7:55 PM CARTRIDGE BELT PUNCHER Inhaled Oxygen Concentration - - Weight 235.2 kg (518 lb 9.6 oz) 08/03/2024 7:15 PM CARTRIDGE BELT PUNCHER Height 175.3 cm (5' 9 ) 08/03/2024 7:15 PM CARTRIDGE BELT PUNCHER Body Mass Index 76.58 08/03/2024 7:15 PM CARTRIDGE BELT PUNCHER Plan of Treatment Health Maintenance Due Date Last Done Comments Colorectal Cancer Screening Colonoscopy (10 Years) 1979 Annual Physical 1982 Pneumococcal Vaccine: Pediatrics (0 to 5 Years) and At-Risk Patients (6 to 64 Years) (1 of 2 - PCV) 1985 Hepatitis C 1997 Hepatitis B Vaccines (1 of 3 - 19+ 3-dose series) 1998 COVID-19 Vaccine (2023-2 5 season) 2024 Influenza Adult (#1) 2024 06/13/2022, 06/16/2019 DTaP, Tdap and Td Vaccines ( 2 - Td or Tdap) 10/05/2027 10/05/2017 HPV Vaccines Aged Out No longer eligi ble based on patient's age to complete this topic Meningococcal Vaccine Aged Out No kedar daniel eligible based on patient's age to complete this topic RSV Immunizations Under 20 Months Aged Out No longer eligible b ased on patient's age to complete this topic Insurance [facility] MEDICAID Care Teams Community Health Director Relationship Specialty Start Date End Date Sukhwinder Nuñez PA [address] [place] [address] PCP - General PHYSICIAN FIXED INTEREST DEALER 05/03/19
--- OUTSIDE RECORDS SUMMARY | 2024-08-13 23:13 | XMS_ITS | Encounter Summary ---
Author Organization [facility] Address [address] [place] [address]. 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
--- OUTSIDE RECORDS SUMMARY | 2024-08-13 23:13 | XMS_ITS | Encounter Summary ---
Author Organization [facility] Address [address] [place] [address]. [place] [address] [place] [address] Care Team Providers Care Plywood Factory Worker Name Role Phone Sukhwinder Nuñez Primary Care Provider [phone] Reason for Visit * Reason Comments Nosebleeds Encounter Details Date Type Department Care Team (Late st Contact Info) Description 08/03/2024 7:11 PM CONDUIT INSTALLER - 08/03/2024 7:56 PM [facility] Emergency [place] [facility] [address] [facility] [place] [address] Nallely Keller MD [address] [id number] Nosebleeds Discharge Disposition: Home or Self Care [...] on file Legal Sex Male 5:49 PM CONDUIT INSTALLER Gender Identity Not on file Sexual Orientation Not on file documented as of this encounter Last Filed Vital Signs Vital Sign Reading Time Taken Comments Blood Pressure 133/70 08/03/2024 7:55 PM CONDUIT INSTALLER Pulse 99 08/03/2024 7:15 PM CONDUIT INSTALLER Temperature 36.5 ??C (97.7 ??F) 08/03/2024 7:15 PM CS T Respiratory Rate 16 08/03/2024 7:15 PM CONDUIT INSTALLER Oxygen Saturation 93% 08/03/2024 7:55 PM CONDUIT INSTALLER Inhaled Oxygen Concentration - - Weight 235.2 kg (518 lb 9.6 oz) 08/03/2024 7:15 PM CONDUIT INSTALLER Height 175.3 cm (5' 9 ) 08/03/2024 7:15 PM CONDUIT INSTALLER Body Mass Index 76.58 08/03/2024 7:15 PM CONDUIT INSTALLER documented in this encounter Discharge Instructions * Discharge Instructions* Nallely Keller MD - 08/03/2024 7:49 PM CONDUIT INSTALLER Use humidifiers at home. Use nose clip if you start having a nosebleed again. If you continue to bleed for an hour and unable to stop the nosebleed, please return to the emergency department. Otherwise follow with your primary care doctor in 2 to 3 days. UIT INSTALLER * Attachments The following attachments cannot be sent through Care Everywhere. * Humidifiers (German) * Nosebleeds (German) documented in this encounter Medications at Time of Discharge LORazepam (ATIVAN) 1 MG tablet Take 1 tablet (1 mg total) by mouth nightly as needed. 11/29/2022 simvastatin 40 MG tablet Take 40 mg by mouth daily. triamterene-hydro chlorothiazide 75-50 MG tablet Take 1 tablet by mouth daily. documented as of this encounter ED Notes * Nallely Keller MD - 08/03/2024 7:49 PM CST EMERGENCY DEPARTMENT NOTE History and Physical Patient: Andrews Morgan Date of : 1980 Subjective: Andrews Morgan is a 44-year-old male with history of elevated BMI, hypertension and dyslipidemia who presents to ED with chief complaint left-sided nare bleed started earlier today then it stopped and then it reoccurred. Patient states nosebleed started after he was doing nasal irrigation. Denies any cough or cold symptoms. Denies any fevers or chills. Denies chest pain or shortness of breath. Patient also denies nasal trauma. Patient denies easy bruising or other evidence of petechia. Triage: Nosebleeds . History: Past Medical History: Past Medical History: Diagnosis Date Hyperlipemia Hypertension Past Surgical History: History reviewed. No pertinent surgical history. Family History: No family history on file. Social History: Social History Tobacco Use Smoking status: Every Day Types: Electronic Cigarettes Smokeless tobacco: Never Substance Use Topics Alcohol use: No Review of Systems: Review of Systems ROS negative except as documented elsewhere in note. Physical Exam: Filed Vitals: 08/03/24191408/03/24193908/03/24194408/03/241949 BP: (!) 176/68 131/73 136/73 136/69 Pulse: 99 Resp: 16 Temp: 97.7 ??F (36.5 ??C) TempSrc: Temporal SpO2: 96% 93% 94% 93% Weight: (!) 235.2 kg (518 lb 9.6 oz) Height: 1.753 m (5' 9 ) Nursing notes reviewed Physical Exam Vitals and nursing note reviewed. Constitutional: Appearance: Normal appearance. He is normal weight. HENT: Head: Normocephalic. Right Ear: External ear normal. Left Ear: External ear normal. Nose: Nose normal. Comments: Old blood in left nare, no active hemorrhage Mouth/Throat: Mouth: Mucous membranes are moist. Eyes: Pupils: Pupils are equal, round, and reactive to light. Cardiovascular: Rate and Rhythm: Normal rate. Pulses: Normal pulses. Pulmonary: Effort: Pulmonary effort is normal. Abdominal: General: Abdomen is flat. Musculoskeletal: General: Normal range of motion. Cervical back: Normal range of motion. Skin: General: Skin is warm. Capillary Refill: Capillary refill takes less than 2 seconds. Neurological: General: No focal deficit present. Mental Status: He is alert and oriented to person, place, and time. Mental status is at baseline. Psychiatric: Mood and Affect: Mood normal. Results: Pulse Ox: SpO2: 93 % on . Room air no hypoxia, interpreted by me. Laboratory Data Reviewed: No results found for this visit on 08/03/24. Imaging Studies Reviewed: No orders to display Interventions: Medications Administered in ED: Medications - No data to display Assessment / Plan / MDM: [] ED Course as of 08/03/242005 [place] Aug 03, 20241945 Patient's blood pressure on reevaluation is 136/73. No active epistaxis in the emergency department. Patient instructed to use a humidifier Vaseline to the nare and given a nose clamp. Precautions given when to return. No advanced imaging needed at this time. [DG] 1946 No easy bruising or other petechia noted and no imaging and labs indicated [DG] ED Course User Index [DG] Nallely Keller MD PROBLEMS: Ddx associated with the above CC includes but is not limited to: Epistaxis Chronic illnesses impacting care: Hypertension DATA: Independent historian used: Patient Prior external notes reviewed: None Labs & Imaging ordered/reviewed: Consider doing a CBC but patient denies any other easy bruising or petechiae. Patient states symptoms of epistaxis started after nasal irrigation. Discussion of management/testing with consultants: None I reviewed and performed an independent interpretation of the: None RISK: Prescription drug management considered: None Diagnosis and treatment significantly limited by: None Hospitalization considered: No ED Diagnosis: SNOMED CT(R) 1. Epistaxis BLEEDING FROM NOSE Disposition: DELMA Flynn [address] [id number] Schedule an appointment as soon as possible for a visit in 1 week As needed Discharge Medications: New Prescriptions No medications on file @[facility]@ 08/03/24 Nallely Keller MD 08/03/242005 UIT INSTALLER * Lucy Sharma RN - 08/03/2024 7:18 PM CST Pt arrives per pov from home. Pt c/o bleeding from L nare that started at 1600. No active bleeding noted at this time. UIT INSTALLER documented in this encounter Plan of Treatment Not on file documented as of this encounter Visit Diagnoses Diagnosis Epistaxis- Primary documented in this encounter Care Teams Plywood Factory Worker Relationship Specialty Start Date End Date Sukhwinder Nuñez PA [address] [place] [address] PCP - General PHYSICIAN FOLDING MACHINE SETTER 05/03/19 documented as of this encounter
--- OUTSIDE RECORDS SUMMARY | 2024-08-13 23:13 | XMS_ITS | Encounter Summary ---
Author Organization [facility] Address [address] [place] [address]. 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
--- OUTSIDE RECORDS SUMMARY | 2024-08-13 23:13 | XMS_ITS | Encounter Summary ---
Author Organization [facility] Address [address] [place] [address]. 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
--- OUTSIDE RECORDS SUMMARY | 2024-08-13 23:13 | XMS_ITS | Encounter Summary ---
Author Organization [facility] Address [address] [place] [address]. [place] [address] [place] [address] Care Team Providers Care Receptionist Doctor'S Office Name Role Phone Sukhwinder Nuñez Primary Care Provider [phone] Encounter Details Date Type Department Care Team (Late st Contact Info) Description 01/18/2019 Abstract [facility]VERSION [address] [place] [address] , Generic ConversionMD Social History Tobacco Use Types Packs/Day Years Used Date Smoking Tobacco: Never Assessed Sex and Gender Information Value Date Recorded Sex Assigned at Not on file Legal Sex Male 5:49 PM COMPLIANCE ADVISOR Gender Identity Not on file Sexual Orientation Not on file documented as of this encounter Plan of Treatment Not on file documented as of this encounter Visit Diagnoses Not on filedocumented in this encounter Care Teams Receptionist Doctor'S Office Relationship Specialty Start Date End Date Sukhwinder Nuñez PA [address] [place] [address] PCP - General PHYSICIAN WATER QUALITY CONTROL ENGINEER 05/03/19 documented as of this encounter
--- OUTSIDE RECORDS SUMMARY | 2024-08-13 23:13 | XMS_ITS | Encounter Summary ---
Author Organization [facility] Address [address] [place] [address]. 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 SERVICE CREW LEADER Gender Identity Not on file Sexual Orientation Not on file documented as of this encounter Plan of Treatment Not on file documented as of this encounter Procedures Procedure Name Priority Date/Time Associated Diagnosis Comments COMPREHENSIVE METABOLIC PANEL STAT 04/23/2017 5:45 PM CDT LACTIC ACID STAT 04/23/2017 5:45 PM CDT CULTURE, BACTERIA, BLOOD STAT 04/23/2017 5:45 PM CDT CBC W/DIFF AUTOMATED STAT 04/23/2017 5:45 PM CDT CULTURE, BACTERIA, BLOOD STAT 04/23/2017 5:25 PM CDT documented in this encounter Results * CULTURE, BACTERIA, BLOOD (04/23/2017 5:45 PM CDT) SPEC DESCRIPTION BLOOD 04/23/2017 5:53 PM CDT [facility] SPECIAL REQUESTS NO SPECIAL REQUEST 04/23/2017 5:53 PM CDT [facility] CULTURE RESULT NO GROWTH 5 DAYS 04/28/2017 6:06 AM CDT [facility] BLOOD SPECIMEN OBTAINED FOR BLOOD CULTURE / Unknown 04/23/2017 5:45 PM CDT 04/23/2017 6:01 PM CDT us Generic Conversion Md [facility] MICROBIOLOGY - GENERAL ORDERABLES Final Result Performing Organization Address [facility]/ZIP Co de Phone Number [facility] [address] [place] [address], * LACTIC ACID (04/23/2017 5:45 PM CDT) Pathologist [facility] LACTIC ACID VENOUS 1.7 0.5 - 2.2 MMOL/L 04/23/2017 6:15 PM CDT [facility] PLASMA SPECIMEN / Unknown 04/23/2017 5:45 PM CDT 04/23/2017 6:00 PM CDT us Generic Conversion Md [facility] Final R esult Performing Organization Address City/[facility]/ZIP Co de Phone Number [facility] [address] [place] [address], [place] [phone] * (ABNORMAL) COMPREHENSIVE METABOLIC PANEL (04/23/2017 5:45 PM CDT) Pathologist [facility] GLUCOSE 91 70 - 99 MG/DL 04/23/2017 6:22 PM CDT [facility] BUN 10 9 - 21 MG/DL 04/23/2017 6:22 PM CDT [facility] CREATININE S/P/B 0.96 0.72 - 1.25 MG/DL 04/23/2017 6:22 PM CDT [facility] SODIUM S/P/B 140 136 - 145 MMOL/L 04/23/2017 6:22 PM T [facility] POTASSIUM S/P/B 3.3(L) 3.5 - 5.1 MMOL/L 04/23/2017 6:22 PM T [facility] CHLORIDE S/P/B 101 98 - 107 MMOL/L 04/23/2017 6:22 PM T [facility] CO2 28.0 22.0 - 29.0 MMOL/L 04/23/2017 6:22 PM T [facility] CALCIUM S/P/B 9.5 8.4 - 10.2 MG/DL 04/23/2017 6:22 PM T [facility] BILIRUBIN TOTAL S/P/B 1.1 0.2 - 1.2 MG/DL 04/23/2017 6:22 PM T [facility] TOTAL PROTEIN S/P/B 7.6 6.0 - 8.3 G/DL 04/23/2017 6:22 PM T [facility] ALBUMIN S/P/B 4.1 3.5 - 5.2 G/DL 04/23/2017 6:22 PM T [facility] AST 12 5 - 34 U/L 04/23/2017 6:22 PM [facility] ALT 22 0 - 55 U/L 04/23/2017 6:22 PM T [facility] ALKALINE PHOSPHATASE S/P/B 70 50 - 136 U/L 04/23/2017 6:22 PM T [facility] OSMOLALITY (CALC) 278 275 - 300 MOSM/KG 04/23/2017 6:22 PM [facility] A/G RATIO 1.2 1.0 - 1.6 RATIO 04/23/2017 6:22 PM [facility] BUN CREATININE RATIO 10.4(L) 12 - 20 04/23/2017 6:22 PM T [facility] ANION GAP 11.0 7 - 16 MMOL/L 04/23/2017 6:22 PM T [facility] EGFR NON-AFR. AMER. >60 >60 ML/MIN/1.7 3 M2 04/23/2017 6:22 PM CDT [facility] EGFR AFR. AMER. >60 >60 ML/MIN/1.7 3 M2 04/23/2017 6:22 PM CDT [facility] 04/23/2017 5:45 PM CDT 04/23/2017 6:00 PM CDT us Generic Conversion Md [facility] Final R esult [facility] [address] [email or web address] [address], * (ABNORMAL) CBC W/DIFF AUTOMATED (04/23/2017 5:45 PM CDT) WBC 9.8 4.5 - 10.8 x10'3/uL 04/23/2017 6:04 PM CDT [facility] RBC 4.97 4.50 - 6.10 x10'6/uL 04/23/2017 6:04 PM CDT [facility] HGB 14.0 13.0 - 18.0 G/DL 04/23/2017 6:04 PM CDT [facility] HCT 42.8 37.0 - 52.0 % 04/23/2017 6:04 PM CDT [facility] MCV 86.1 78.0 - 100.0 FL 04/23/2017 6:04 PM CDT [facility] MCH 28.2 27.0 - 31.0 PG 04/23/2017 6:04 PM CDT [facility] MCHC 32.7(L) 33.0 - 36.0 G/DL 04/23/2017 6:04 PM CDT [facility] RDW 14.9(H) 11.5 - 14.5 % 04/23/2017 6:04 PM CDT [facility] PLT 154 150 - 350 x10'3/uL 04/23/2017 6:04 PM CDT [facility] MPV 10.3 7.4 - 10.4 FL 04/23/2017 6:04 PM CDT [facility] SEG NEUTROPHILS 78.0 % 7 6:04 PM CDT [facility] LYMPHOCYTES 10.2 % 04/23/2017 6:04 PM CDT [facility] MONOCYTES 9.6 % 04/23/2017 6:04 PM CDT [facility] EOSINOPHILS 1.2 % 04/23/2017 6:04 PM CDT [facility] BASOPHILS 0.4 % 04/23/2017 6:04 PM CDT [facility] IMMATURE GRANS % 0.6 % 04/23/20 17 6:04 PM CDT [facility] NRBC 0.0 % 04/23/2017 6:04 PM CDT [facility] ABS. NEUTROPHILS 7.64 1.60 - 8.30 x10'3/uL 04/23/2017 6:04 PM CDT [facility] ABS. LYMPHOCYTES 1.00 0.80 - 4.70 x10'3/uL 04/23/2017 6:04 PM CDT [facility] ABS. MONOCYTES 0.94 0.00 - 1.50 x10'3/uL 04/23/2017 6:04 PM CDT [facility] ABS. EOSINOPHILS 0.12 0.00 - 0.40 x10'3/uL 04/23/2017 6:04 PM CDT [facility] ABS. BASOPHILS 0.04 0.00 - 0.20 x10'3/uL 04/23/2017 6:04 PM CDT [facility] ABS. IMMATURE GRANULOCYTES 0.06(H) 0.00 - 0.03 x10'3/uL 04/23/2017 6:04 PM CDT [facility] ABS. NUCLEATED RBC'S 0.00 0.00 x10'3/uL 04/23/2017 6:04 PM CDT [facility] OTHER (type in comments) 04/23/2017 5:45 PM CDT 04/23/2017 6:00 PM CDT Comment:WHOLE BLOOD SAMPLE us Generic Conversion Md [facility] Final R esult Performing Organization Address [facility]/ZIP Co de Phone Number [facility] [address] [place] [address], [place] [phone] * CULTURE, BACTERIA, BLOOD (04/23/2017 5:25 PM CDT) SPEC DESCRIPTION BLOOD 04/23/2017 5:53 PM CDT [facility] SPECIAL REQUESTS NO SPECIAL REQUEST 04/23/2017 5:53 PM CDT [facility] CULTURE RESULT NO GROWTH 5 DAYS 04/28/2017 6:06 AM CDT [facility] BLOOD SPECIMEN OBTAINED FOR BLOOD CULTURE / Unknown 04/23/2017 5:25 PM CDT 04/23/2017 6:01 PM CDT us Generic Conversion Md [facility] MICROBIOLOGY - GENERAL ORDERABLES Final Result Performing Organization Address [facility] Co de Phone Number [facility] [address] [place] [address], [place] [phone] documented in this encounter Visit Diagnoses Diagnosis Cellulitis of extremity documented in this encounter
--- OUTSIDE RECORDS SUMMARY | 2024-08-13 23:13 | XMS_ITS | Encounter Summary ---
Author Organization [facility] Address [address] [place] [address]. [place] [address] [place] [address] Care Team Providers Care Internet Site Designer Name Role Phone Sukhwinder Nuñez Primary Care Provider [phone] Reason for Visit * Reason Comments Edema * Physical Therapy (Routine) - Authorized Specialty Diagnoses / Procedures Referred By Contac t Referred To Contact PHYSICAL THERAPY / [facility] Physical Therapy Diagnoses Lymphedema, not elsewhere classified Lymphedema Procedures Sukhwinder Evans PA [address] [place] [address] Phone: tel: fax: Kathy Johnson, PT [address] [place] [address] Phone: tel: fax: Referral ID Status Reason Start Date Expiration Date Visits Requested Visits Authorized [id number] Authorized Physical Therapy 02/19/2024 20 20 Encounter Details Date Type Department Care Team (Latest Contact Info) Description 02/19/2024 1:00 PM CDT - 02/19/2024 11:59 PM T Hospital Encounter [facility] [address] [place] [address] Kathy Johnson, PT [address] [place] [address] Edema Discharge Disposition: Home or Self Care (Routine [...] on file 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 11/29/2022 simvastatin 40 MG tablet Take 40 mg by mouth daily. triamterene-hydro chlorothiazide 75-50 MG tablet Take 1 tablet by mouth daily. documented as of this encounter Progress Notes * Kathy Johnson, PT - 02/19/2024 1:00 PM CDT PHYSICAL THERAPY OUTPATIENT INITIAL EVALUATION Time In: 1309 Time Out: 1400 Total Time: 51' Date: 02/19/24 Name: Andrews Morgan : 1980 Past Medical History: Diagnosis Date Hyperlipemia Hypertension No past surgical history on file. Subjective: Diagnosis: BLE Lymphedema Referring Physician: DELMA Flynn Onset Date: 2004 Mechanism Of Injury: Insidious Onset Prior Treatment For Diagnosis: Lymphedema therapy Return to MD: None Pt was seeing a lymphedema therapist approx one year ago in [place]. He has a pump but does notuse it like he shoulder. He does have Circaid reduction kits that are approx one year old. He reports his LLE is contained but he is having trouble keeping the edema down in his RLE. Pt reports he started to notice edema in his RLE in 2004. He did not get directed for treatment forseveral years. Since getting wraps, his frequency of cellulitis has decreased. He did have cellulitis a few monthsago and has completed antibiotics for this. Restriction/Precaution: None Patient Goals: Obtain new compression garments to decrease RLE circumference and maintain LLE circumference. Objective: Pt presents with stage 3 lymphedema in RLE and stage two lymphedema in LLE. He has a right inner thigh lobule that he reports is where his cellulitis typically occurs. LE Circumference Left Right MTP 30 31 Mid Foot 31 32 Malleoli 36 37 1 48 49 2 57.5 73 3 56 68.5 4 63 84.5 5 72 102 6 76.5 106 7 82.5 97.5 8 91.5 94 HIPS 175 Treatment Performed: Therapeutic Activity 53416: Time: 25' - Pt Education Discussed with patient at length various garment options, use of Tactile pump to maintain progress.Also issued chip bag to assist in softening of RLE lobule tissue. Assessment Assessment/Impressions: Andrews Morgan is a 43-year-old male who presents with BLE lymphedema. He has received treatment in the past for this, issued Circaid reduction kits for his lower legs and a Tactile pump. Pt has used same garments for approx 1 year now and is in need of new garments. Patienthas hyperkeratosis and hyperpigmentation in BLEs. He has a right inner thigh lobule present as well. Rehab Potential: GOOD Personal Factors/Co-Morbidities Affecting Care: 3-4+ Examination of Body Systems: Low (1-2) Clinical Presentation of Patient: Stable Uncomplicated Eval Complexity: Low PLAN: PT Plan for next visit: Pt to return for follow up appt for consult with Keely with [facility] for garment fitting and measurements. Treatment/Interventions: Therapeutic Exercise - 95302, Therapeutic Activity - 15623, and Manual Therapy - 46492 Frequency: Return as needed for garment measurements and fitting. THE PROVIDER, I AM IN AGREEMENT WITH THE STATED THERAPY PLAN OF CARE. Provider Signature: Date: In signing this document, provider certifies that prescribed rehabilitation is a medical necessity. Date: 03/04/24 Patient Name: Andrews Morgan Patient : 1980 [place] [address] documented in this encounter Plan of Treatment Not on file documented as of this encounter Visit Diagnoses Diagnosis Lymphedema- Primary Other lymphedema documented in this encounter Care Teams Internet Site Designer Relationship Specialty Start Date End Date Sukhwinder Nuñez PA [address] [place] [address] PCP - General PHYSICIAN PRECISION ASSEMBLER 05/03/19 documented as of this encounter
--- OUTSIDE RECORDS SUMMARY | 2024-08-13 23:13 | XMS_ITS | Encounter Summary ---
Author Organization [facility] Address [address] [place] [address]. [place] [address] [place] [address] Care Team Providers Care Cytometry Technologist Name Role Phone Sukhwinder Nuñez Primary Care Provider [phone] Reason for Visit * Reason Comments Skin Problem Leg Swelling Encounter Details Date Type Department Care Team (Late st Contact Info) Description 03/12/2023 2:14 PM CDT - 03/12/2023 2:45 PM CDT Emergency [facility] [address] [place] [address] [place] [address] Kendall Diaz MD [address] [place] [id number] Skin Problem; Leg Swelling Discharge Disposition: Home or Self Care (Routine [...] on file 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 Gender Identity Not on file Sexual Orientation Not on file documented as of this encounter Last Filed Vital Signs Vital Sign Reading Time Taken Comments Blood Pressure 147/71 03/12/2023 2:19 PM CDT Pulse 83 03/12/2023 2:19 PM CDT Temperature 37.2 ??C (99 ??F) 03/12/2023 2:19 PM CDT Respiratory Rate 20 03/12/2023 2:19 PM CDT Oxygen Saturation 93% 03/12/2023 2:19 PM CDT Inhaled Oxygen Concentration - - Weight 223.8 kg (493 lb 6.4 oz) 03/12/2023 2:19 PM CDT Height 175.3 cm (5' 9 ) 03/12/2023 2:1 9 PM CDT Body Mass Index 72.86 03/12/2023 2:19 PM CDT documented in this encounter Discharge Instructions * Attachments The following attachments cannot be sent through Care Everywhere. * Cellulitis (Skin Infection) Discharge Instructions, Adult (Belarusian) documented in this encounter Medications at Time of Discharge LORazepam (ATIVAN) 1 MG tablet Take 1 tablet (1 mg total) by mouth nightly as needed. 11/29/2022 simvastatin 40 MG tablet Take 40 mg by mouth daily. triamterene-hydro chlorothiazide 75-50 MG tablet Take 1 tablet by mouth daily. clindamycin (CLEOCIN) 300 MG capsule Take 1 capsule (300 mg total) by mouth 3 (three) times daily for 10 days. 30 capsule 03/12/2023 03/22/2023 documented as of this encounter ED Notes * Kendall Diaz MD - 03/12/2023 2:28 PM CDT eMERGENCY dEPARTMENT eNCOUnter CHIEF COMPLAINT Chief Complaint Patient presents with Skin Problem Leg Swelling HPI HPI Andrews Morgan is a 43-year-old male who presents to the ER with a complaint of leg infection. Patient states he has had recurrent cellulitis to both of his legs in the past related to lymphedema. Hestates that for the last 24 hours he has noted progressive redness and some swelling to the right lower extremity. This is typical of when he gets infections. Denies fevers chills shortness of breathor other complaints. ALLERGIES Review of patient's allergies indicates: No Known Allergies CURRENT MEDICATIONS Current Outpatient Medications Medication Sig clindamycin (CLEOCIN) 300 MG capsule Take 1 capsule (300 mg total) by mouth 3 (three) times daily for 10 days. LORazepam (ATIVAN) 1 MG tablet Take 1 tablet (1 mg total) by mouth nightly as needed. simvastatin 40 MG tablet Take 40 mg by mouth daily. triamterene-hydrochlorothiazide 75-50 MG tablet Take 1 tablet by mouth daily. PAST MEDICAL HISTORY Past Medical History: Diagnosis Date Hyperlipemia Hypertension SURGICAL HISTORY History reviewed. No pertinent surgical history. SOCIAL HISTORY Social History Socioeconomic History Marital status: Single Tobacco Use Smoking status: Every Day Types: Electronic Cigarettes Smokeless tobacco: Never Substance and Sexual Activity Alcohol use: No FAMILY HISTORY No family history on file. REVIEW OF SYSTEMS Review of Systems All other ROS negative unless noted above in HPI. PHYSICAL EXAM Physical Exam Filed Vitals: 03/12/23 1419 BP: (!) 147/71 Pulse: 83 Resp: 20 Temp: 99 ??F (37.2 ??C) TempSrc: Temporal SpO2: 93% Weight: (!) 223.8 kg (493 lb 6.4 oz) Height: 5' 9 (1.753 m) The patient is a well developed and well nourished but morbidly obese adult male in no distress, alert and oriented. HEENT: PERRL, EOMI Throat without lesions, mucous membranes moist NECK: Supple without adenopathy or rigidity CHEST: Respirations are easy and unlabored EXT: Patient has bilateral lower extremity lymphedema with erythema and warmth to the lateral and posterior aspect of the right lower extremity no obvious break in the skin no evidence of a sending lymphangitis NEURO: CN II-XII intact, no focal weakness SKIN: No rash or significant lesions EKG RADIOLOGY No orders to display LABS No results found for this visit on 03/12/23. ED MEDICATIONS Medications clindamycin (CLEOCIN) capsule 300 mg (300 mg Oral Given 03/12/23 1441) PROCEDURES Procedures CONSULTS: ED COURSE & MEDICAL DECISION MAKING MDM Patient presents with localized cellulitis with previous history of the same. He states the clindamycin typically works for him so we will start him on oral and then sent a prescription. He has no systemic symptoms at this time appears appropriate for outpatient treatment with a plan to follow-up or return if worse. FINAL IMPRESSION SNOMED CT(R) 1. Cellulitis of right leg CELLULITIS OF RIGHT LOWER LIMB DELMA Flynn [address] [facility] [address] As needed, If symptoms worsen New Prescriptions CLINDAMYCIN (CLEOCIN) 300 MG CAPSULE Take 1 capsule (300 mg total) by mouth 3 (three) times daily for 10 days. Kendall Diaz MD 03/12/23 1442 * Lucy Sharma RN - 03/12/2023 2:21 PM CDT PT ARRIVES PER POV FROM HOME. PT STATES HAS HAD R LEG SWELLING AND REDNESS X 2 DAYS. PT HAS A HX OFCELLULITIS. documented in this encounter Plan of Treatment Not on file documented as of this encounter Visit Diagnoses Diagnosis Cellulitis of right leg- Primary Cellulitis and abscess of leg, except foot documented in this encounter Administered Medications Inactive Administered Medications - up to 3 most recent administrations Medication Order MAR Action Action Date Dose Rate Site clindamycin (CLEOCIN) capsule 300 mg 300 mg, Oral, Once, 1 dose, On Sun03/12/23 at 1430 Given 03/12/2023 2:41 PM CDT 300 mg documented in this encounter Active and Recently Administered Medications Times are shown in CDT. Scheduled Medication Order 03/10/2023 2023 03/12/2023 clindamycin (CLEOCIN) capsule 300 mg (COMPLETED) 300 mg, Oral, Once, 1 dose, On Sun03/12/23 at 1430 1441 (Given - Provid er: Penny Garrido RN) documented in this encounter Care Teams Cytometry Technologist Relationship Specialty Start Date End Date Sukhwinder Nueñz PA [address] [place] [address] PCP - General PHYSICIAN METAL LEAF LAYER 05/03/19 documented as of this encounter
--- OUTSIDE RECORDS SUMMARY | 2024-08-13 23:13 | XMS_ITS ---
Author Organization Unknown Address [address] [place] [phone] Phone Care Team Providers Care Digital Asset Manager Name Role Phone SABRINA PATTERSON Attending Unavailable Immunization Immunization Date Status Additional Notes Code Code System Tdap 10/05/2017 Completed 115 CVX Influenza, split virus, quadrivalent, PF 06/13/2022 Completed 150 CVX Influenza, split virus, quadrivalent, preservative 06/16/2019 Completed [address] SINUS W/O CONTRAST - Comp leted: 06/05/2023 08:14 LOINC: EXAM DESCRIPTION: CT SINUS W/O CONTRAST REASON FOR STUDY: chronic sinusitis x 10+ yrs nasal drip/congestion Duration: 10 yrs TECHNIQUE: Noncontrast scanning through the paranasal sinuses using bone algorithm. Reconstructed MPR images reviewed. All images stored on PACS. Automated exposure control was used as a dose optimization technique for this examination. COMPARISON: None available. FINDINGS: No foamy secretions or air-fluid levels in the paranasal sinuses to suggest CT evidence for acute sinusitis. The bilateral frontal sinuses are predominantly clear. There is some mucosal thickening along the frontoethmoidal recess on both sides. Mucosal thickening in the bilateral ethmoid air cells, none of which are completely opacified. Sphenoid sinus septum deviates to the right resulting in a dominant left and non dominant right sinus. Accessory septation in the left sinus. Polypoid mucosal thickening along the anterior floor of the left sphenoid sinus. There is some mucosal thickening along the left sphenoid ostia and bilateral sphenoid ethmoidal recess. Right maxillary sinus with mild mucosal thickening along the floor. Note made of Thu cell. The right ostiomeatal complex is clear. Left maxillary sinus floor with mild mucosal thickening. Note made of Thu cell. The left ostiomeatal complex is predominantly clear. The nasal septum has a biconvex curvature. Left rafa bullosa is predominantly clear. Mucosal thickening along the inferior left nasal cavity. The mastoid air cells are predominantly clear. Temporomandibular joints are symmetric. The soft tissues are suboptimally evaluated on this unenhanced sinus CT. The bilateral globes are grossly symmetric. IMPRESSION: 1. There are inflammatory changes in the paranasal sinuses as described. No CT evidence for acute sinusitis. 2. Nasal septal deviation and additional findings as discussed. 3. Previous imaging studies are not available for comparison. An addendum can be made once priors are provided. THIS IS AN ELECTRONICALLY VERIFIED FINAL REPORT 06/05/2023 4:28 PM - Electronically signed by Erik Rutledge D.O. AP: AP Report ID: [id number] Reading Location: [place] [address] Social History Type Status Start Date End Date Code Code Syst em Smoking History Current every day smoker [id number] SNOMED CT Sex Male Hospital Discharge Instructions Should you have any questions prior to discharge, please contact a member of your healthcare team. If you have left the hospital and have any questions, please contact your primary care physician. Reason For Referral No Data Found Plan of Treatment CT Sinus WO Contrast (88478) 06/05/2023 Encounters Encounter Diagnosis Start Date Code Code Sys tem Chronic pansinusitis 06/05/2023 SNOMED- CT Personal Care Team Section Performer Name Performer Role Active Date Inactive Da te
--- OUTSIDE RECORDS SUMMARY | 2024-08-13 23:13 | XMS_ITS | Encounter Summary ---
Author Organization [facility] Address [address] [place] [address]. [place] [address] [place] [address] Care Team Providers Care Revolving Field Assembler Name Role Phone Sukhwinder Nuñez Primary Care Provider [phone] Reason for Visit * Reason Comments Edema * Physical Therapy (Routine) - Authorized Specialty Diagnoses / Procedures Referred By Contac t Referred To Contact PHYSICAL THERAPY / [facility] Physical Therapy Diagnoses Lymphedema, not elsewhere classified Lymphedema Procedures Sukhwinder Evans PA [address] [place] [address] Phone: tel: fax: Kathy Johnson, PT [address] [place] [address] Phone: tel: fax: Referral ID Status Reason Start Date Expiration Date Visits Requested Visits Authorized [id number] Authorized Physical Therapy 02/19/2024 20 20 Encounter Details Date Type Department Care Team (Latest Contact Info) Description 03/04/2024 2:28 PM CDT - 03/04/2024 11:59 PM T Hospital Encounter [facility] [address] [place] [address] Kathy Johnson, PT [address] [place] [address] Edema Discharge Disposition: Home or [...] on file 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 Subjective: Diagnosis: BLE Lymphedema Referring Physician: DELMA Flynn Onset Date: 2004 Subjective Note: Pt reports he has used his Tactile pump since his last visit and has been using the chip foam bag at night. He has noticed improvement in his overall skin softness in his RLE lobule.Continues to have significantly more edema present in his RLE vs his LLE. Location of Pain: Pt denies pain Pre-treatment Pain: Post-treatment Pain: Restriction/Precaution: None Objective: Treatment Performed: Therapeutic Exercise - 61866 Minutes Performed: Intervention: - - - Manual Therapy - 62366 Minutes Performed: Intervention: - - - Neuromuscular Reeducation - 42596 Minutes Performed: Intervention: - - - Therapeutic Activities - 94103 Minutes Performed: 60' - Measurements for custom and RTW garments with patient education of these. Modalities Minutes Performed: Intervention: - - Total Treatment Time: 60' Education Performed: ASSESSMENT: Patient is undergoing treatment for their lymphedema and requires compression garments to maintain the reduction they have achieved through in-clinic care. Patient requires 1 unit for their left leg of FULL LENGTH READY TO WEAR FARROWWRAP and 1 unit for right leg of BNR [id number] FARROWWRAP STRONG TTF, BRN [id number] STRONG TTF TOP BAND XL, BNR [id number] STRONG TTF FOOT SIZE MEDIUM, FARROWWRAP CUSTOM LOWER EXTREMITY STRONG THIGH HIGH 30-40 MMHG GRADIENT COMPR ESSION WRAP WITH ADJUSTABLE STRAPS EACH for daytime and 1 unit for right and 1 unit for left CUSTOMHIP HUGGERS FULL LENGTH nighttime use due to the severity of their lymphedema. I am recommending the patient receives these compression garments from [employer]. The requested compression garments are essential to the patient's long-term care and are part of the care plan for discharge from treatment. Ready to wear compression stockings would not be appropriate for this patient due to the shape of the patients limbs and the fluctuation of their Lymphedema at this time PLAN: Plan for next visit: Return once garments are obtained for adjustments. documented in this encounter Plan of Treatment Not on file documented as of this encounter Visit Diagnoses Diagnosis Lymphedema- Primary Other lymphedema documented in this encounter Care Teams Revolving Field Assembler Relationship Specialty Start Date End Date Sukhwinder Nuñez PA [address] [place] [address] PCP - General PHYSICIAN OIL WELL PERFORATOR OPERATOR 05/03/19 documented as of this encounter
--- OUTSIDE RECORDS SUMMARY | 2024-08-13 23:15 | XMS_ITS | Encounter Summary ---
Author Organization [facility] Address [address] [place] [address] Phone Care Team Providers Care Nuclear Equipment Research Engineer Name Role Phone Sukhwinder Nuñez Primary Care Provider [phone] Reason for Visit * Reason Comments Follow-up Excision of lesion Encounter Details Date Type Department Care Team (Late st Contact Info) Description 01/04/2021 2:30 PM CDT Office Visit [facility] - General Surgery - [place] [address] [phone] Markos Mckinley MD [address] [address] Encounter for removal of sutures (Primary Dx) Discharge Disposition: Discharged to home or Selfcare Social History Tobacco Use Types Packs/Day Years Used Date Smoking Tobacco: Former Cigarettes 1.5 14 0 12/23/1995 - 10/16/2009 Smokeless Tobacco: Never Alcohol Use Standard Drinks/Week Comments No 0 (1 standard drink = 0.6 oz pur e alcohol) Sexually Active Control Partners Comments Not Currently Female Sex and Gender Information Value Date Recorded Sex Assigned at Not on file 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 No / Unsure 01/04/2021 1:30 PM CDT documented as of this encounter Last Filed Vital Signs Vital Sign Reading Time Taken Comments Blood Pressure 126/84 01/04/2021 1:49 PM CDT Pulse 79 01/04/2021 1:49 PM CDT Temperature 36.6 ??C (97.8 ??F) 01/04/2021 1:49 PM CD T Respiratory Rate 16 01/04/2021 1:49 PM CDT Oxygen Saturation 94% 01/04/2021 1:49 PM CDT Inhaled Oxygen Concentration - - Weight 228.2 kg (503 lb) 01/04/2021 1:49 PM CDT Height 175.3 cm (5' 9 ) 01/04/2021 1:49 PM CDT Body Mass Index 74.28 01/04/2021 1:49 PM CDT documented in this encounter Progress Notes * Markos Mckinley MD - 01/04/2021 2:30 PM CDT ASSESSMENT: S/p excision of skin lesion from the right leg on 12/22/2020, here for suture removal. 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 He has no complaints. No drainage. No swelling or signs of infection. OBJECTIVE: BP 126/84 (BP Location: Right Arm, BP Position: Sitting, BP Cuff Size: Large) Pulse 79 Temp 97.8 ??F (36.6 ??C) (Temporal) Resp 16 Ht 5' 9 (1.753 m) Wt (!) 503 lb (228.2 kg) SpO2 94% BMI 74.28 kg/m?? No intake/output data recorded. Gen: nad Inc: c/d/i, sutures removed, covered with a Band-Aid documented in this encounter Plan of Treatment Not on file documented as of this encounter Visit Diagnoses Diagnosis Encounter for removal of sutures- Primary documented in this encounter Care Teams Nuclear Equipment Research Engineer Relationship Specialty Start Date End Date Sukhwinder Nuñez, [facility] [address] [place] [address] PCP - General Physician Mine Safety Director 11/24/15 documented as of this encounter
--- OUTSIDE RECORDS SUMMARY | 2024-08-13 23:15 | XMS_ITS | Clinical Summary ---
Author Organization [facility] Address [address] [place] [address] Phone Care Team Providers Care Deputy Probation Officer Name Role Phone Sukhwinder Nuñez Primary Care Provider [phone] Allergies No known active allergies Medications simvastatin (ZOCOR) 40 MG Tablet Take 40 mg by mouth daily. Active traMADol (ULTRAM) 50 MG Tablet Take 50 mg by mouth every 6 hours as needed for Pain. Active triamterene-hydr ochlorothiazide (MAXZIDE) 75-50 MG Tablet Take 1 Tab by mouth daily. Active multiple vitamin with minerals (CENTRUM) Tablet Take 1 Tab by mouth daily. Active raNITIdine (ZANTAC) 150 MG TabletIndication s:Gastroesophage al reflux disease with esophagitis Take 1 Tab by mouth 2 times daily. 180 Tab 9 Active Additional Information Patient not taking.Reported on 12/22/2020 Clindamycin HCl (CLEOCIN) 300 MG Capsule clindamycin HCl 300 mg capsule Active Active Problems No known active problems Family History Medical History Relation Name Comments Abdominal Aortic Aneurysm Father Hypertension Father Stroke Maternal Grandmother Chronic Obstructive Pulmonary Disease Mother Congestive Heart Failure Mother High Cholesterol Mother Hypertension Mother Chronic Lung Disease Paternal Grandfather Emphysema Paternal Grandfather Stroke Paternal Grandmother Ulcerative Colitis Sister Relation Name Status Comments Father Alive Maternal Grandfather Maternal Grandmother Mother Alive Paternal Grandfather Paternal Grandmother Sister Alive Social History Tobacco Use Types Packs/Day Years [...] on file 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 Gender Identity Not on file Sexual Orientation [...] Mass Index 74.28 01/04/2021 1:49 PM CDT Plan of Treatment Health Maintenance Due Date Last Done Comments Hepatitis C Virus (HCV) Screening 1980 TdaP Immunization 1980 Hepatitis B Immunization (1 of 3 - 19+ 3-dose series) 1998 Influenza Immunization (#1) 2024 06/16/2019 SARS-COV-2 Immunization ( season) 2024 Colonoscopy 10/29/2028 10/29/2018, 09/30/2015 Colorectal Cancer Screening 10/29/2028 Respiratory Syncytial Virus (RSV) Immunization (Adult) (1 - 1-dose 75+ series) 2054 10/29/2018, 09/30/2015 Meningococcal Immunization (ACWY) Aged Out No longer eligible b ased on patient's age to complete this topic Pneumococcal Immunization Combined Aged Out No longer eligible b ased on patient's age to complete this topic Rotavirus Immunization Aged Out No lo nger eligible based on patient's age to complete this topic Procedures Procedure Name Priority Date/Time Associated Diagnosis Comments HM COLONOSCOPY Routine 09/30/2015 from Last 3 Months or Most Recently Relevant to Health Maintenance Results * HM COLONOSCOPY (09/30/2015) us Sunil Manuel MD PROCEDURE/MINOR SURGICAL ORDER CHIRAG Final Result from Last 3 Months or Most Recently Relevant to Health Maintenance Insurance MEDICARE [place]ICAID [place] Care Teams Deputy Probation Officer Relationship Specialty Start Date End Date Sukhwinder Nuñez PAC [address] [place] [address] PCP - General Physician Ware Server 11/24/15
--- OUTSIDE RECORDS SUMMARY | 2024-08-13 23:15 | XMS_ITS | Encounter Summary ---
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 No / Unsure 12/22/2020 10:54 AM CDT documented as of this encounter Plan of Treatment Not on file documented as of this encounter Visit Diagnoses Not on filedocumented in this encounter Care Teams Inventory Manager Relationship Specialty Start Date End Date Sukhwinder Nuñez PAC [address] [place] [id number] PCP - General Physician Rouge Miller 11/24/15 documented as of this encounter
--- OUTSIDE RECORDS SUMMARY | 2024-08-13 23:15 | XMS_ITS | Encounter Summary ---
Author Organization [facility] Address [address] [place] [address] Phone Care Team Providers Care Telemarketer Supervisor Name Role Phone Leonardo Nuñez Primary Care Provider [phone] Reason for Visit * Reason Comments Skin Lesion Melanocytic nevus * Consult, Test & Initiate Treatment (Routine) - Closed Specialty Diagnoses / Procedures Referred By Jovanny t Referred To Contact General Surgery Diagnoses Melanocytic nevi of trunk Leonardo Nuñez, [facility] [address] [place] [address] Phone: tel: fax: Markos Mckinley MD [address] [address] Phone: tel: fax: Referral ID Status Reason Start Date Expiration Date Visits Re quested Visits Authorized [id number] Closed 1 1 Encounter Details Date Type Department Care Team (Late st Contact Info) Description 12/22/2020 11:15 AM CDT Office Visit [facility] - General Surgery - [facility] [id number] Markos Mckinley MD [address] [address] Skin lesion of right leg (Primary Dx) Discharge Disposition: Discharged to home [...] on file 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 No / Unsure 12/22/2020 10:54 AM CDT documented as of this encounter Last Filed Vital Signs Vital Sign Reading Time Taken Comments Blood Pressure - - Pulse 85 12/22/2020 11:09 AM CDT Temperature 36.5 ??C (97.7 ??F) 12/22/2020 11:09 AM C DT Respiratory Rate - - Oxygen Saturation 95% 12/22/2020 11:09 AM CDT Inhaled Oxygen Concentration - - Weight - - Height 175.3 cm (5' 9 ) 12/22/2020 11:09 AM CDT Body Mass Index - - documented in this encounter H&P Notes * Markos Mckinley MD - 12/22/2020 11:15 AM CDT HISTORY AND PHYSICAL Assessment: Skin lesion right lower leg PLAN: This was excised in the office. Please see procedure note. Come back and see me in 10-14 days for suture removal. Thank you for allowing me to participate in his care Subjective: HPI: Andrews Morgan is a 40 y.o. male who I was asked to see by [facility] for right lower leg skin lesion. Patient was seen by casing grader for lesion that he has had for 5 yearsbut dermatology did not want to remove this in the office for fear of bleeding. Patient states he has had this for 5 years. He does have massive lymphedema of the legs. Every time he is in a wheelchair, he will turn and the lesion will hit against the wall or another object and start to bleed. The lesion has been about the same size for the past 5 years. No change. No fevers chills. No nausea vomiting. Does have a bit of cellulitis on his right thigh lymphedema There are no problems to display for this patient. No Known Allergies Cannot display prior to admission medications because the patient has not been admitted in this contact. Current Outpatient Medications on File Prior to Visit Medication Sig Dispense Refill ??? Clindamycin HCl (CLEOCIN) 300 MG Capsule clindamycin HCl 300 mg capsule ??? multiple vitamin with minerals (CENTRUM) Tablet Take 1 Tab by mouth daily. (Patient not taking:Reported on 12/22/2020) ??? raNITIdine (ZANTAC) 150 MG Tablet Take 1 Tab by mouth 2 times daily. (Patient not taking: Reported on 12/22/2020) 180 Tab 0 ??? simvastatin (ZOCOR) 40 MG Tablet Take 40 mg by mouth daily. ??? traMADol (ULTRAM) 50 MG Tablet Take 50 mg by mouth every 6 hours as needed for Pain. ??? triamterene-hydrochlorothiazide (MAXZIDE) 75-50 MG Tablet Take 1 Tab by mouth daily. No current facility-administered medications on file prior to visit. Past Medical History Positives Diagnosis Date ??? Arthritis ??? Cellulitis lower legs ??? Hyperlipidemia ??? Hypertension ??? Lumbar radiculopathy DEGENERATIVE DISC ??? Lymphedema ??? Morbid (severe) obesity due to excess calories (HCC) ??? LEANDRO (obstructive sleep apnea) NO C-PAP ??? Pityriasis rosea NO LONGER PRESENT Past Surgical History: Procedure Laterality Date ??? COLONOSCOPY 2017 X3 ??? COLONOSCOPY N/A 10/29/2018 Procedure: COLONOSCOPY - BIOPSIES, HEMORRHOID BANDING; Surgeon: Tony Campos MD; Location: [facility]; Service: Gastroenterology ??? UPPER GASTROINTESTINAL ENDOSCOPY N/A 10/16/2018 Procedure: EGD MACEY TEST, RANDOM GASTRIC BIOPSIES, GE JUNCTION BIOPSIES, PROXIMAL AND DISTAL ESOPHAGEAL BIOPSIES; Surgeon: Tony Campos MD; Location: [facility]; Service: Gastroenterology ??? WISDOM TOOTH EXTRACTION Family History Problem Relation Age of Onset ??? Hypertension Mother ??? High Cholesterol Mother ??? Congestive Heart Failure Mother ??? Chronic Obstructive Pulmonary Disease Mother ??? Hypertension Father ??? Abdominal Aortic Aneurysm Father ??? Stroke Maternal Grandmother ??? Stroke Paternal Grandmother ??? Ulcerative Colitis Sister ??? Emphysema Paternal Grandfather ??? Chronic Lung Disease Paternal Grandfather Social History Socioeconomic History ??? Marital status: Single Spouse name: Not on file ??? Number of children: Not on file ??? Years of education: Not on file ??? Highest education level: Not on file Occupational History ??? Not on file Tobacco Use ??? Smoking status: Former Smoker Packs/day: 1.50 Years: 14.00 Pack years: 21.00 Start date: 12/23/1995 Quit date: 10/16/2009 Years since quittin.1 ??? Smokeless tobacco: Never Used Vaping Use ??? Vaping Use: Some days Substance and Sexual Activity ??? Alcohol use: No Alcohol/week: 0.0 oz ??? Drug use: No ??? Sexual activity: Not Currently Partners: Female Other Topics Concern ??? Not on file Social History Narrative ??? Not on file Social Determinants of Health Social determinant risk not applicable to this patient. Review of Systems: Review of Systems Constitutional: Negative. HENT: Negative. Eyes: Negative. Respiratory: Negative. Cardiovascular: Positive for leg swelling. Gastrointestinal: Positive for heartburn. Genitourinary: Negative. Musculoskeletal: Positive for back pain, joint pain and neck pain. Skin: Positive for itching and rash. Neurological: Positive for focal weakness and weakness. Endo/Heme/Allergies: Negative. Psychiatric/Behavioral: Negative. All other systems reviewed and are negative. Pertinent items are noted in HPI. All other systems were reviewed and were negative. Objective: VITALS: Pulse 85 Temp 97.7 ??F (36.5 ??C) (Temporal) Ht 5' 9 (1.753 m) SpO2 95% BMI 73.84 kg/m?? Physical Exam Vitals and nursing note reviewed. Constitutional: Appearance: Normal appearance. He is obese. HENT: Head: Normocephalic and atraumatic. Nose: Nose normal. Mouth/Throat: Mouth: Mucous membranes are moist. Pharynx: Oropharynx is clear. Eyes: Extraocular Movements: Extraocular movements intact. Conjunctiva/sclera: Conjunctivae normal. Pupils: Pupils are equal, round, and reactive to light. Neck: Thyroid: No thyromegaly. Cardiovascular: Rate and Rhythm: Normal rate and regular rhythm. Heart sounds: Normal heart sounds. Pulmonary: Effort: Pulmonary effort is normal. No respiratory distress. Breath sounds: Normal breath sounds. Abdominal: General: Bowel sounds are normal. There is no distension. Palpations: Abdomen is soft. Tenderness: There is no abdominal tenderness. Hernia: No hernia is present. Musculoskeletal: General: Swelling present. Cervical back: Normal range of motion and neck supple. Right lower leg: Edema present. Left lower leg: Edema present. Comments: Bilateral extensive lymphedema. Legs wrapped in bandages and Tucker wraps Skin: General: Skin is warm and dry. Capillary Refill: Capillary refill takes less than 2 seconds. Findings: Erythema, lesion and rash present. Comments: Right lower extremity with 2 cm oval lesion, pedunculated, extending from the skin. Scab on the top Neurological: General: No focal deficit present. Mental Status: He is alert and oriented to person, place, and time. Motor: Weakness present. Gait: Gait is intact. Psychiatric: Mood and Affect: Mood and affect normal. Behavior: Behavior normal. Thought Content: Thought content normal. Cognition and Memory: Memory normal. Judgment: Judgment normal. Data Review: No results for input(s): ALBUMIN, TBIL, BILIRUBIN, ALKALINEPHO, SGOTAST, SGPTALT, TOTALPROTEIN in the last 72 hours. Lab Results Component Value Date WBC 5.58 10/16/2018 HEMOGLOBIN 12.2 (L) 10/16/2018 HEMATOCRIT 39.8 10/16/2018 PLATELETCNT 142 10/16/2018 LDL 105 09/06/2018 SODIUM 141 10/16/2018 POTASSIUM 3.6 10/16/2018 CHLORIDE 100 10/16/2018 CREATININE 0.85 10/16/2018 BUN 15 10/16/2018 CO2VEN 29 10/16/2018 GLUCOSE 109 (H) 10/16/2018 I personally reviewed the above labs and radiological studies (images if available and reports), and agree with the radiologist unless stated above. This note was dictated using Foldax dictation system and there may be errors in wood cutter. Despite proof reading the note, there may be mistakes and I apologize for those. By: Markos Mckinley MD, 12/22/2020, 12:26 PM CDT Primary Care Physician: LEONARDO NUÑEZ, PAC documented in this encounter Procedure Notes * Markos Mckinley MD - 12/22/2020 11:15 AM CDTAssociated Order(s): EXC SKIN BENIG 1.1-2CM TRUNK,ARM,LEG Procedure(s): EXC SKIN BENIG 1.1-2CM TRUNK,ARM,LEG Surgeon:Markos Mckinley MD Cat Swamper: Malika Cummins MA Preop diagnosis: Right lower leg lesion Postop diagnosis: Same Procedure: Excision of benign skin lesion right leg 2 cm Indications: Patient presents with a right lower leg lesion that is 2 cm in length and has been the 5 years. He would like to get a removed. Procedure was explained to the patient. Risks, benefits, alternatives were explained to the patient. He understands and agrees to procedure done. Consent was obtained. Procedure: Patient was seated. The right leg was on the bed. The area was prepped and draped in usual sterile manner. 1% lidocaine with epinephrine was injected into the base of the wound and around the wound, total of 3 cc. Using a 15 blade, the lesion was excised at the base. There was some bleeding which was controlled with silver nitrate. The wound was then closed with 2 sutures of 3-0 nylon interrupted. Area is washed and dried. Gauze and tape were put on top of the wound. He can remove this in 24 hours. Come back and see me in 10-14 days for suture removal. Okay to shower tomorrow with soap and water. documented in this encounter Plan of Treatment Not on file documented as of this encounter Procedures Procedure Name Priority Date/Time Associated Diagnosis Comments PATHOLOGY SURGICAL Routine 12/22/2020 12 :29 PM CDT Skin lesion of right leg EXC SKIN BENIG 1.1-2CM TRUNK,ARM,LEG Routine 12/22/2020 11:15 AM CDT Skin lesion of right leg documented in this encounter Results * PATHOLOGY SURGICAL (12/22/2020 12:29 PM CDT) Case Report Surgical Pathology Report ? Case: [id number] ? Authorizing Provider: ??Markos Mckinley, ? Collected: ? 12/22/2020 12:29 PM ? Ordering Location: ? [facility] - ?Received: ?12/22/2020 12:29 PM ? General Surgery - [facility] ? Pathologist: ? Evangelina Carols, ? MD ? Specimen: ?Leg, Right leg skin lesion ? 12/23/2020 4:19 PM CDT [facility] FINAL DIAGNOSIS Skin, Right Leg, Lesion, Excision: - Angiokeratoma. - Negative for malignancy. 12/23/2020 4:19 PM CDT [facility] Gross Description A. Right leg skin lesion The specimen presents in a single formalin container for gross and microscopic examination, labeled with the patient's name, Andrews Morgan, and designated as right leg skin lesion. In formalin is a single light chan to pink-chan ovoid block of skin measuring 1.3 x 0.9 x 0.8 cm. The specimen is nodular in appearance. It is inked at the presumed excisional margin, sectioned at narrow intervals, and submitted in its entirety in cassette A1. CP/sb 12/23/2020 4:19 PM CDT [facility] Microscopic Description 2 H&E. Microscopic examination supports the diagnosis. No epithelial or other atypia is identified. SES/sb 12/23/2020 4:19 PM CDT [facility] Other LOWER LIMB STRUCTURE / Unknown Non-Phlebotomy Collection / Unknown 12/22/2020 12:29 PM CDT 12/22/2020 12:29 PM CDT us Markos Mckinley MD PATHOLOGY/CYTOLOGY ORDERABLES Fi nal Result Performing Organization Address City/State/[facility] Co de Phone Number [facility] [address] [place] [address] * EXC SKIN BENIG 1.1-2CM TRUNK,ARM,LEG (12/22/2020 11:15 AM CDT) Narrative Markos Mckinley MD - 12/22/2020 11:15 AM CDT Markos Mckinley MD ? 12/22/2020 ??1:00 PM Surgeon:Markos Mckinley MD Cat Swamper: ??Malika Cummins MA Preop diagnosis: ??Right lower leg lesion Postop diagnosis: ??Same Procedure: ??Excision of benign skin lesion right leg 2 cm Indications: Patient presents with a right lower leg lesion that is 2 cm in length and has been the 5 years. ??He would like to get a removed. Procedure was explained to the patient. ??Risks, benefits, alternatives were explained to the patient. ??He understands and agrees to procedure done. ??Consent was obtained. Procedure: Patient was seated. ??The right leg was on the bed. ??The area was prepped and draped in usual sterile manner. ??1% lidocaine with epinephrine was injected into the base of the wound and around the wound, total of 3 cc. ??Using a 15 blade, the lesion was excised at the base. ??There was some bleeding which was controlled with silver nitrate. ??The wound was then closed with 2 sutures of 3-0 nylon interrupted. ??Area is washed and dried. ?? Gauze and tape were put on top of the wound. ??He can remove this in 24 hours. ??Come back and see me in 10-14 days for suture removal. ??Okay to shower tomorrow with soap and water. ?? Markos Mckinley MD PROCEDURE/MINOR SURGICAL ORDERAB LES Final Result documented in this encounter Visit Diagnoses Diagnosis Skin lesion of right leg- Primary Unspecified disorder of skin and subcutaneous tissue documented in this encounter Administered Medications Inactive Administered Medications - up to 3 most recent administrations Medication Order MAR Action Action Date Dose Rate Site lidocaine-EPINEPHrine 1 %-[id number] injection 3 mL 3 mL, Injection, ONCE, 1 dose, On Sun12/22/20 at 1300Indications:Skin lesion of right leg Given 12/22/2020 12:43 PM CDT 3 mL documented in this encounter Care Teams Telemarketer Supervisor Relationship Specialty Start Date End Date Leonardo Nuñez, PAC [address] [place] [address] PCP - General Physician Cat Swamper 11/24/15 documented as of this encounter
--- OUTSIDE RECORDS SUMMARY | 2024-08-13 23:15 | XMS_ITS | Encounter Summary ---
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 No / Unsure 01/04/2021 1:30 PM CDT documented as of this encounter Plan of Treatment Not on file documented as of this encounter Visit Diagnoses Not on filedocumented in this encounter Care Teams Med Admin Relationship Specialty Start Date End Date Sukhwinder Nuñez PAC [address] [place] [id number] PCP - General Physician Grid Inspector 11/24/15 documented as of this encounter
--- OUTSIDE RECORDS SUMMARY | 2024-08-13 23:16 | XMS_ITS | Data Portability ---
Author Organization [facility] Address [address] [place] [address] Care Team Providers Care Hemodialysis Patient Care Specialist Name Role Phone LEONARDO NUÑEZ Primary Care Provider Assessment No assessment recorded. Plan of Treatment Reminders Order Date Submit Date Provider Last Modified By Organization Details Last Modified Time Details Appointments None recorded. Lab CBC 2022 023 [facility], [address] [facility] [address], [place], [address], 06:17:22 CMP, serum or plasma 2022 023 [facility], [address] [facility] [address], [place], [address], 3 06:17:20 lipid panel, serum 2022 023 [facility], [address] [facility] [address], [place], [address], 3 06:17:19 HbA1c (hemoglobi n A1c), blood 2022 023 [facility] In-Office Order, Internal Use Only DO Not Attach Compendium DO Not Attach Compendium, Do Not Delete/merge, [id number] 16:08:29 drug screen, 14 drugs (detectime d), urine 2022 023 [facility], [address] [facility], [facility], [place], [address], 3 06:20:45 CBC 2023 024 [facility], [address] [facility], [facility], [place], [address], 4 09:13:51 CMP, serum or plasma 2023 024 [facility], [address] [facility], [facility] [address], [place], [address], 4 09:13:50 lipid panel, serum 2023 024 [facility], [address] [facility], [facility] [address], [place], [address], 4 09:13:49 HbA1c (hemoglobi n A1c), blood 2023 024 [employer] [employer] [facility] In-Office Order, Internal Use Only DO Not Attach Compendium DO Not Attach Compendium, Do Not Delete/merge, [id number] 16:30:40 influenza virus A + B + SARS-CoV-2 (COVID19) Ag panel, rapid IA, upper respirator y specimen 2023 024 bettie In-Office Order, Internal Use Only DO Not Attach Compendium DO Not Attach Compendium, Do Not Delete/merge, [id number] 4 16:22:41 Referral sales representative door to door referral 2023 024 tori Andersen Santiago, [address] [place], [address], 4 10:22:01 physical therapist referral [address] [facility] [address] [facility], [address] [place], [address], 4 10:22:02 Procedures None recorded. Surgeries None recorded. Imaging CT, sinuses, w/o contrast 2022 023 [facility] (Radiology), [address] [place], [address], 3 16:15:28 Medication Orders triamteren e 75 mg-hydroch lorothiazi de 50 mg tablet 2022 023 [id number] [address], [place], [address], 3 14:58:04 simvastati n 40 mg tablet 2022 023 [id number], [address], [place], [address], 3 14:58:01 Medrol (Michael) 4 mg tablets in a dose pack 2022 023 [id number], [address], [place], [address], 4 15:23:25 triamteren e 75 mg-hydroch lorothiazi de 50 mg tablet 2022 023 [facility], [address], [place], [address], 3 15:52:54 simvastati n 40 mg tablet 2022 023 [id number], [address], [place], [address], 3 15:52:54 lorazepam 1 mg tablet 2023 024 [id number], [address], [place], [address], 4 16:13:18 trazodone 50 mg tablet 2023 024 [employer] [facility], [address] [place] [address], [id number], 18:03:25 Patient TargetsNo targets recorded. Patient Instructions Encounter Date Encounter Id Patient Instructions Last Modified By Organization Details Last Modified Time 03/05/2023 [id number] body mass index: care instructions jnanney Not available 03/05/2023 14:57:58 learning about healthy weight jnanney Not available 03/05/2023 14:57:58 05/30/2023 [id number] A healthy lifestyle: care instructions jnanney Not available 05/30/2023 15:51:20 learning about high blood pressure jnanney Not available 05/30/2023 15:51:20 01/11/2024 [id number] When You Want to Lose Weight: Care Instructions jnanney Not available 01/11/2024 15:55:40 04/03/2024 [id number] learning about high blood pressure jnanney Not available 04/03/2024 16:13:13 cough: care instructions jnanney Not available 04/03/2024 16:22:41 A healthy lifestyle: care instructions jnanney Not available 04/03/2024 16:13:13 04/23/2024 [id number] A healthy lifestyle: care instructions jnanney Not available 04/23/2024 15:59:24 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 for Pain of toe of right foot Referring Physician: [facility], Encounter Date: 01/11/2024 Physical Therapist Referral for Lymphedema Referring Physician: [facility], Encounter Date: 01/11/2024 Results Created Date Observation Date Name Description Value Unit Range Abnormal Flag Note LastModifiedBy Organization Detail LastModifiedTime 05/30/2005/30/2023 LIPID PANEL cholesterol, total 155 mg/dL 100-19 9 Not Available [facility] [address] [place], [address], 05/31/2023 06:17:19 05/30/20 23 05/30/2023 LIPID PANEL triglyceride s 231 mg/dL 0-149 above high normal Not Available [facility] [address] [place], [address], 05/31/2023 06:17:19 05/30/20 23 05/30/2023 LIPID PANEL HDL cholesterol 22 mg/dL 40-999 below low normal Not Available [address], [address], 05/31/2023 06:17:19 05/30/20 23 05/30/2023 LIPID PANEL VLDL cholesterol christian 46 mg/dL 5-40 above high normal Not Available [address], [address], 05/31/2023 06:17:19 05/30/20 23 05/30/2023 LIPID PANEL LDL chol calc ([facility]) 121 mg/dL 0-99 above high normal Not Available [address], [address], 05/31/2023 06:17:19 05/30/20 23 05/30/2023 COMP. METAB OLIC PANEL (14) glucose 100 mg/dL 70-99 above high normal Not Available [address], [address], 05/31/2023 06:17:20 05/30/20 23 05/30/2023 COMP. METAB OLIC PANEL (14) BUN 12 mg/dL 6-24 Not Available [address], [address], 05/31/2023 06:17:20 05/30/20 23 05/30/2023 COMP. METAB OLIC PANEL (14) creatinine 0.87 mg/dL 0.76-1 .27 Not Available [address], [address], 05/31/2023 06:17:20 05/30/20 23 05/30/2023 COMP. METAB OLIC PANEL (14) eGFR 109 >=60 Units for eGFR value s are mL/mi n/1.7 3 The eGFR Calcu latio n has not been valid ated for patie nts under the age of 18. If test resul ts are displ ayed for a patie nt under the age of 18, disre samuel that value . Not Available [address], [address], 05/31/2023 06:17:20 05/30/20 23 05/30/2023 COMP. METAB OLIC PANEL (14) BUN/creatini ne ratio 14 9-20 Not Available [address], [address], 05/31/2023 06:17:20 05/30/20 23 05/30/2023 COMP. METAB OLIC PANEL (14) sodium 140 mmol/ L 134-14 4 Not Available [address], [address], 05/31/2023 06:17:20 05/30/20 23 05/30/2023 COMP. METAB OLIC PANEL (14) potassium 3.7 mmol/ L 3.5-5. 2 Not Available [address], [address], 05/31/2023 06:17:20 05/30/20 23 05/30/2023 COMP. METAB OLIC PANEL (14) chloride 97 mmol/ L 96-106 Not Available [address], [address], 05/31/2023 06:17:20 05/30/20 23 05/30/2023 COMP. METAB OLIC PANEL (14) carbon dioxide, total 33 mmol/ L 20-29 above high normal Not Available [address], [address], 05/31/2023 06:17:20 05/30/20 23 05/30/2023 COMP. METAB OLIC PANEL (14) calcium 9.2 mg/dL 8.7-10 .2 Not Available [address], [address], 05/31/2023 06:17:20 05/30/20 23 05/30/2023 COMP. METAB OLIC PANEL (14) protein, total 7.3 g/dL 6.0-8. 5 Not Available [address], [address], 05/31/2023 06:17:20 05/30/20 23 05/30/2023 COMP. METAB OLIC PANEL (14) albumin 4.4 g/dL 4.1-5. 1 Not Available [address], [address], 05/31/2023 06:17:20 05/30/20 23 05/30/2023 COMP. METAB OLIC PANEL (14) globulin, total 2.9 g/dL 1.5-4. 5 Not Available [address], [address], 05/31/2023 06:17:20 05/30/20 23 05/30/2023 COMP. METAB OLIC PANEL (14) A/G ratio 1.0 1.2-2. 2 below low normal Not Available [address], [address], 05/31/2023 06:17:20 05/30/20 23 05/30/2023 COMP. METAB OLIC PANEL (14) bilirubin, total 1.6 mg/dL 0.0-1. 2 above high normal Not Available [address], [address], 05/31/2023 06:17:20 05/30/20 23 05/30/2023 COMP. METAB OLIC PANEL (14) alkaline phosphatase 68 IU/L 44-121 Not Available [address], [address], 05/31/2023 06:17:20 05/30/2005/30/2023 COMP. METAB OLIC PANEL (14) AST (SGOT) 24 IU/L 0-40 Not Available [address], [address], 05/31/2023 06:17:20 05/30/2005/30/2023 COMP. METAB OLIC PANEL (14) ALT (SGPT) 24 IU/L 0-44 Not Available [address], [address], 05/31/2023 06:17:20 05/30/2005/30/2023 CBC, PLATE LET, NO DIFFE RENTI AL WBC 3.9 x10e3 /uL 3.4-10 .8 Not Available [address], [address], 05/31/2023 06:17:21 05/30/2005/30/2023 CBC, PLATE LET, NO DIFFE RENTI AL RBC 5.45 x10e6 /uL 4.14-5 .80 Not Available [address], [address], 05/31/2023 06:17:21 05/30/2005/30/2023 CBC, PLATE LET, NO DIFFE RENTI AL hemoglobin 16.1 g/dL 13.0-1 7.7 Not Available [address], [address], 05/31/2023 06:17:21 05/30/2005/30/2023 CBC, PLATE LET, NO DIFFE RENTI AL hematocrit 49.3 % 37.5-5 1.0 Not Available [address], [address], 05/31/2023 06:17:21 05/30/2005/30/2023 CBC, PLATE LET, NO DIFFE RENTI AL MCV 91 fL 79-97 Not Available [address], [address], 05/31/2023 06:17:21 05/30/2005/30/2023 CBC, PLATE LET, NO DIFFE RENTI AL MCH 29.5 pg 26.6-3 3.0 Not Available [address], [address], 05/31/2023 06:17:21 05/30/2005/30/2023 CBC, PLATE LET, NO DIFFE RENTI AL MCHC 32.7 g/dL 31.5-3 5.7 Not Available [address], [address], 05/31/2023 06:17:21 05/30/2005/30/2023 CBC, PLATE LET, NO DIFFE RENTI AL RDW 14.3 % 11.5-1 4.5 Not Available [address], [address], 05/31/2023 06:17:21 05/30/2005/30/2023 CBC, PLATE LET, NO DIFFE RENTI AL platelets 107 x10e3 /uL 150-45 0 below low normal Mean Plate let Volum e 10.1 fL 8.9-1 2.7 N Not Available [address], [address], 05/31/2023 06:17:21 05/30/2005/30/2023 CBC, PLATE LET, NO DIFFE RENTI AL NRBC 0 % 0-0 Not Available [address], [address], 05/31/2023 06:17:21 05/30/20 23 06/06/2023 COMPL IANCE DRUG CHARLETTE SIS, UR summary report (summary) FINAL ===== ===== ===== ===== ===== ===== ===== ===== ===== ===== ===== ===== ===== === TOXAS SURE COMP DRUG CHARLETTE SIS,U R ===== ===== ===== ===== ===== ===== ===== ===== ===== ===== ===== ===== ===== === Test Resul t Flag Units Drug Prese nt and Decla red for Presc ripti on Verif icati on Loraz epam 257 EXPEC ALISE ng/mg creat Sourc e of loraz epam is a sched uled presc ripti on medic ation . Drug Prese nt not Decla red for Presc ripti on Verif icati on Aceta minop hen PRESE NT UNEXP ECTED ===== ===== ===== ===== ===== ===== ===== ===== ===== ===== ===== ===== ===== === Test Resul t Flag Units Ref Range Creat inine 196 mg/dL >=20 ===== ===== ===== ===== ===== ===== ===== ===== ===== ===== ===== ===== ===== === Decla red Medic ation s: The nahid ing and inter preta tion on this repor t are based on the follo wing decla red medic ation s. Unexp ected resul ts may arise from inacc uraci es in the decla red medic ation s. Not e: The testi ng scope of this panel inclu kemi these medic ation s: Loraz epam Not e: The testi ng scope of this panel does not inclu de follo wing repor alise medic ation s: Motley chlor othia zide (Tria mtere ne and HCTZ) Methy lpred nisol one (Medr ol Dose Pack) Simva stati n Triam teren e (Tria mtere ne and HCTZ) ===== ===== ===== ===== ===== ===== ===== ===== ===== ===== ===== ===== ===== === For clini christian consu ltati on, pleas e call [phone]. ===== ===== ===== ===== ===== ===== ===== ===== ===== ===== ===== ===== ===== === Not Available [facility] ([facility]) [address], [place], [address], 06/07/2023 06:20:45 05/30/2006/06/2023 COMPL IANCE DRUG CHARLETTE SIS, UR pdf . Not Available [facility] ([facility]) [address], [place], [address], 06/07/2023 06:20:45 05/30/2005/31/2023 CARDI OVASC ULAR REPOR T interpretati on Note Suppl ement al repor t is avail able. Not Available [facility] [address] [place], [address], 05/31/2023 06:17:21 05/30/2005/31/2023 CARDI OVASC ULAR REPOR T pdf . Not Available [facility] & [address], [address], 05/31/2023 06:17:21 05/30/20 23 05/30/2023 HbA1c (hemo globi n A1c), blood HbA1c 5.2 Not Available In-Office Order Internal Use Only DO Not Attach Compendium DO Not Attach Compendium, Do Not Delete/merge, [id number] 05/30/2023 15:52:28 04/03/2004/05/2024 LIPID PANEL cholesterol, total 172 mg/dL 100-19 9 Not Available [address], [address], 04/05/2024 09:13:49 04/03/2004/05/2024 LIPID PANEL triglyceride s 144 mg/dL 0-149 Not Available [address], [address], 04/05/2024 09:13:49 04/03/2004/05/2024 LIPID PANEL HDL cholesterol 31 mg/dL >39 below low normal Not Available [address], [address], 04/05/2024 09:13:49 04/03/2004/05/2024 LIPID PANEL VLDL cholesterol christian 26 mg/dL 5-40 Not Available [address], [address], 04/05/2024 09:13:49 04/03/2004/05/2024 LIPID PANEL LDL chol calc ([facility]) 115 mg/dL 0-99 above high normal Not Available [address], [address], 04/05/2024 09:13:49 04/03/2004/05/2024 COMP. METAB OLIC PANEL (14) glucose 95 mg/dL 70-99 Not Available [address], [address], 04/05/2024 09:13:50 04/03/20 24 04/05/2024 COMP. METAB OLIC PANEL (14) BUN 13 mg/dL 6-24 Not Available [address], [address], 04/05/2024 09:13:50 04/03/20 24 04/05/2024 COMP. METAB OLIC PANEL (14) creatinine 0.90 mg/dL 0.76-1 .27 Not Available [address], [address], 04/05/2024 09:13:50 04/03/2004/05/2024 COMP. METAB OLIC PANEL (14) eGFR 107 mL/mi n/1.7 3 >59 Not Available [address], [facility], 04/05/2024 09:13:50 04/03/20 24 04/05/2024 COMP. METAB OLIC PANEL (14) BUN/creatini ne ratio 14 9-20 Not Available [address], [facility], 04/05/2024 09:13:50 04/03/20 24 04/05/2024 COMP. METAB OLIC PANEL (14) sodium 143 mmol/ L 134-14 4 Not Available [address], [address], 04/05/2024 09:13:50 04/03/20 24 04/05/2024 COMP. METAB OLIC PANEL (14) potassium 3.5 mmol/ L 3.5-5. 2 Not Available [address], [address], 04/05/2024 09:13:50 04/03/20 24 04/05/2024 COMP. METAB OLIC PANEL (14) chloride 99 mmol/ L 96-106 Not Available [address], [address], 04/05/2024 09:13:50 04/03/2004/05/2024 COMP. METAB OLIC PANEL (14) carbon dioxide, total 29 mmol/ L 20-29 Not Available [address], [address], 04/05/2024 09:13:50 04/03/2004/05/2024 COMP. METAB OLIC PANEL (14) calcium 9.3 mg/dL 8.7-10 .2 Not Available [address], [address], 04/05/2024 09:13:50 04/03/2004/05/2024 COMP. METAB OLIC PANEL (14) protein, total 7.4 g/dL 6.0-8. 5 Not Available [address], [address], 04/05/2024 09:13:50 04/03/2004/05/2024 COMP. METAB OLIC PANEL (14) albumin 4.2 g/dL 4.1-5. 1 Not Available [address], [address], 04/05/2024 09:13:50 04/03/2004/05/2024 COMP. METAB OLIC PANEL (14) globulin, total 3.2 g/dL 1.5-4. 5 Not Available [address], [address], 04/05/2024 09:13:50 04/03/2004/05/2024 COMP. METAB OLIC PANEL (14) bilirubin, total 0.8 mg/dL 0.0-1. 2 Not Available [address], [address], 04/05/2024 09:13:50 04/03/2004/05/2024 COMP. METAB OLIC PANEL (14) alkaline phosphatase 66 IU/L 44-121 Not Available [address], [address], 04/05/2024 09:13:50 04/03/2004/05/2024 COMP. METAB OLIC PANEL (14) AST (SGOT) 17 IU/L 0-40 Not Available [address], [address], 04/05/2024 09:13:50 04/03/2004/05/2024 COMP. METAB OLIC PANEL (14) ALT (SGPT) 20 IU/L 0-44 Not Available [address], [address], 04/05/2024 09:13:50 04/03/2004/05/2024 CARDI OVASC ULAR REPOR T interpretati on Note Suppl emkaela al repor t is avail able. Not Available [address], [address], 04/05/2024 09:13:51 04/03/2004/05/2024 CARDI OVASC ULAR REPOR T pdf . Not Available [address], [address], 04/05/2024 09:13:51 04/03/2004/05/2024 CBC, PLATE LET, NO DIFFE RENTI AL WBC - x10e3 /uL Test not perfo rmed. No laven gloria top tube submi tted. Not Available [address], [address], 04/05/2024 09:13:51 04/03/2004/05/2024 CBC, PLATE LET, NO DIFFE RENTI AL RBC - Test not perfo rmed Not Available [address], [address], 04/05/2024 09:13:51 04/03/2004/05/2024 CBC, PLATE LET, NO DIFFE RENTI AL hemoglobin - Test not perfo rmed Not Available [address], [address], 04/05/2024 09:13:51 04/03/2004/05/2024 CBC, PLATE LET, NO DIFFE RENTI AL hematocrit - Test not perfo rmed Not Available [address], [address], 04/05/2024 09:13:51 04/03/2004/05/2024 CBC, PLATE LET, NO DIFFE RENTI AL platelets - Test not perfo rmed Not Available [address], [address], 04/05/2024 09:13:51 04/03/2004/03/2024 HbA1c (hemo globi n A1c), blood HbA1c 5.2 Not Available In-Office Order Internal Use Only DO Not Attach Compendium DO Not Attach Compendium, Do Not Delete/merge, [id number] 04/03/2024 16:07:02 04/03/2004/03/2024 influ rolf virus A + B + SARS- CoV-2 (COVI D19) Ag panel , rapid IA, upper respi rator y speci men Flu A negati ve Not Available In-Office Order Internal Use Only DO Not Attach Compendium DO Not Attach Compendium, Do Not Delete/merge, [id number] 04/03/2024 15:48:39 04/03/20 24 04/03/2024 influ rolf virus A + B + SARS- CoV-2 (COVI D19) Ag panel , rapid IA, upper respi rator y speci men Flu B negati ve Not Available In-Office Order Internal Use Only DO Not Attach Compendium DO Not Attach Compendium, Do Not Delete/merge, [id number] 04/03/2024 15:48:39 04/03/20 24 04/03/2024 influ rolf virus A + B + SARS- CoV-2 (COVI D19) Ag panel , rapid IA, upper respi rator y speci men Rapid SARS CoV 2 Ag, QL IA, respiratory specimen negati ve Not Available In-Office Order Internal Use Only DO Not Attach Compendium DO Not Attach Compendium, Do Not Delete/merge, [id number] 04/03/2024 15:48:39 08/23/19 24 06/05/2023 CT, sinus es, w/o contr ast No observ ation [facility] ed. [facility] [address] [place], [address], 08/23/2023 13:08:37 Result Notes None recorded. Problems Name Problem SNOMED Code Status Onset Date Resolution Date Notes Provider Name and Address Organization Details Recorded Time Lymphedema 266477797 Active 2019 Not Available [facility] 3 16:02:53 Hematochezia 291748332 Active Not Available [facility] 3 16:02:53 Morbid obesity 164330754 Active Not Available [facility] 3 16:02:53 Hypersomnia with sleep apnea 93224558 Active Not Available [facility] 3 16:02:53 Respiratory obstruction 35221303 Active Not Available [facility] 3 16:02:53 Backache 892202037 Active Not Available [facility] 3 16:02:53 Pityriasis 52146240 Active Not Available [facility] 3 16:02:53 Otitis externa 4454550 Active Not Available [facility] 3 16:02:53 Lumbar radiculopathy 551646197 Active Not Available [facility] 3 16:02:53 Cellulitis of lower limb 569548255 Active Not Available [facility] 3 16:02:53 Problem Notes None recorded. Procedures Surgical History Date Name Laterality Status Provider Name and Address Organization Details Recorded Time 9 Colonoscopy completed Erin Ham MA [facility] 10/29/2018 17:27:03 9 EGD completed Erin Ham MA [place] [facility] 10/16/2018 13:42:53 Imaging Results Imaging Date Name Status LastModified by Organiz ation Details LastModified Time 06/05/2023 CT, sinuses, w/o contrast completed [facility] Scheduling [address] [place], [address], 08/23/2023 13:08:37 Procedure Notes None recorded. Medical Equipment None Reported. Allergies No known drug allergies Medications Name Sig Start Date Stop Date Status Note LastModified by Organization Details LastModified Time amoxicillin 500 mg capsule Take 1 capsule every 8 hours by oral route for 10 days. 01/10 completed Not Available Not Available Not Available clindamycin HCl 300 mg capsule TAKE 1 CAPSULE BY MOUTH THREE TIMES A DAY FOR 10 DAYS 04/03 completed Not Available Not Available Not Available triazolam 0.25 mg tablet 2 TABLETS ORALLY 1 HOUR PRIOR TO PROCEDURE 01/10 completed Not Available Not Available Not Available trazodone 50 mg tablet Take 1 tablet every day by oral route for 90 days. active Not Available Not Available No t Available hydrocodone 5 mg-acetamin ophen 325 mg tablet TAKE 1 TABLET BY MOUTH 1 HOUR BEFORE PROCEDURE , THEN EVERY 6 HOURS NEEDED FOR PAIN 01/10 completed Not Available Not Available Not Available Levaquin 750 mg tablet Take 1 tablet every day by oral route for 5 days. 01/16 completed Not Available Not Available Not Available ondansetron HCl 4 mg tablet TAKE 1 TABLET ORALLY 1 HOUR PRIOR TO PROCEDURE 04/03 completed Not Available Not Available Not Available ciprofloxac in 500 mg tablet Take 1 tablet twice a day by oral route for 14 days. 09/06 completed Not Available Not Available Not Available sulfamethox azole 800 mg-trimetho prim 160 mg tablet Take 1 tablet every 12 hours by oral route for 10 days. 08/08 completed Not Available Not Available Not Available tramadol 50 mg tablet TAKE 1 TABLET BY MOUTH THREE TIMES A DAY NEEDED 11/29 completed Not Available Not Available Not Available simvastatin 40 mg tablet TAKE 1 TABLET BY MOUTH DAILY NEEDS active Not Available Not Available No t Available Depo-Medrol 80 mg/mL suspension for injection Take 1 mL by injection route. 12/11 completed Not Available Not Available Not Available ceftriaxone 1 gram solution for injection Take 1 g as needed by injection route for 1 day. 01/16 completed Not Available Not Available Not Available potassium chloride ER 20 mEq tablet,exte nded release(par t/cryst) 06/22 completed Not Available Not Available Not Available Lamisil 250 mg tablet Take 1 tablet every day by oral route for 84 days. 01/17 completed Not Available Not Available Not Available ciprofloxac in 0.3 % eye drops 3 drops to affected ear tid for 7 days 12/11 completed Not Available Not Available Not Available cephalexin 500 mg capsule Take 1 capsule every 8 hours by oral route as directed for 10 days. 12/24 completed Not Available Not Available Not Available ranitidine 150 mg tablet 06/22 completed Not Available Not Available Not Available Aldara 5 % topical cream packet APPLY TO THE AFFECTED AREA(S) BY TOPICAL ROUTE 3 TIMES PER WEEK 06/22 completed Not Available Not Available Not Available budesonide 0.25 mg/2 mL suspension for nebulizatio n MIX 1 VIAL WITH SALINE AND IRRIGATE SINUSES NASALLY TWICE A DAY 30 DAYS 01/10 completed Not Available Not Available Not Available omeprazole 20 mg capsule,del ayed release 06/22 completed Not Available Not Available Not Available triamterene 75 mg-hydrochl orothiazide 50 mg tablet TAKE 1 TABLET BY MOUTH DAILY active Not Available Not Available No t Available lorazepam 1 mg tablet TAKE 1 TABLET BY MOUTH EVERY DAY NEEDED active Not Available Not Available No t Available azelastine 137 mcg (0.1 %) nasal spray active Not Available Not Available Not Available methylpredn isolone 4 mg tablets in a dose pack TAKE 1 DOSE PACK BY MOUTH DIRECTED 01/10 completed Not Available Not Available Not Available fluticasone propionate 50 mcg/actuati on nasal spray,suspe nsion INSTILL 1 SPRAY INTO INTO EACH NOSTRIL TWICE A DAY active Not Available Not Available No t Available amoxicillin 875 mg-phillip rodriguez clavulanate 125 mg tablet Take 1 tablet every 12 hours by oral route for 10 days. 01/17 completed Not Available Not Available Not Available azithromyci n 500 mg tablet TAKE 1 TABLET BY MOUTH EVERY DAY FOR 3 DAYS 04/23 completed Not Available Not Available Not Available Afluria Qd 2019-20 (36 mos up)(PF)60 mcg (15 mcg x4)/0.5 mL IM syringe 06/22 completed Not Available Not Available Not Available [employer] COVID-19 Ag Home Test kit USE DIRECTED 05/30 completed Not Available Not Available Not Available Vitals Date Recorded Body height Body mass index (BMI) Body weight Respiratory rate Oxygen saturation Oxygen saturation in Arterial blood by Pulse oximetry Heart rate Systolic blood pressure Diastolic blood pressure Provider Name and Address Organization Details Last Updated DateTime 3 175.26 cm 72.7 kg/m2 107369. 16 g 18 /min 95 % 95 % 88 /min 130 mm[Hg] 75 mm[Hg] Lindsay Cuevas MA [facility] 3 14:51:42 Date Recorded Body height Body mass index (BMI) Body weight Respiratory rate Oxygen saturation Oxygen saturation in Arterial blood by Pulse oximetry Heart rate Systolic blood pressure Diastolic blood pressure Provider Name and Address Organization Details Last Updated DateTime 3 175.26 cm 70.1 kg/m2 898392. 88 g 18 /min 98 % 98 % 88 /min 118 mm[Hg] 70 mm[Hg] Doris Horan MA [facility] 3 15:23:51 Date Recorded Body height Body mass index (BMI) Body weight Oxygen saturation Oxygen saturation in Arterial blood by Pulse oximetry Heart rate Systolic blood pressure Diastolic blood pressure Provider Name and Address Organization Details Last Updated DateTime 4 175.26 cm 73.3 kg/m2 801080. 92 g 94 % 94 % 72 /min 128 mm[Hg] 70 mm[Hg] Pam Reid MA [facility] 4 15:30:34 Date Recorded Body height Body mass index (BMI) Body weight Oxygen saturation Oxygen saturation in Arterial blood by Pulse oximetry Heart rate Systolic blood pressure Diastolic blood pressure Provider Name and Address Organization Details Last Updated DateTime 4 175.26 cm 71.5 kg/m2 590322. 11 g 94 % 94 % 82 /min 148 mm[Hg] 71 mm[Hg] Doris Horan MA [facility] 4 15:50:08 Date Recorded Body height Body mass index (BMI) Body weight Oxygen saturation Oxygen saturation in Arterial blood by Pulse oximetry Heart rate Systolic blood pressure Diastolic blood pressure Provider Name and Address Organization Details Last Updated DateTime 4 175.26 cm 71.4 kg/m2 066455. 21 g 95 % 95 % 74 /min 152 mm[Hg] 82 mm[Hg] Doris Horan MA [facility] 4 15:46:53 Social History Question Answer Notes LastModified by Organizat ion Details LastModified Time Tobacco Smoking Status Former Smoker Vape Erin Ham MA [facility] 02/06/2019 15:46:25 Do You Have An Advance Directive? No Information not available 11/23/2020 What Is Your Level Of Alcohol Consumption? None Information not available 06/22/2020 Are You Blind Or Do You Have Difficulty Seeing? No Information not available 11/23/2020 What Is Your Level Of Caffeine Consumption? Heavy Information not available 06/13/2022 How Much Tobacco Do You Chew? None Information not available 06/22/2020 In The 14 Days Before Symptom Onset, Have You Had Close Contact With A Laboratory-confi rmed COVID-19 While That Case Was Ill? No Information not available 11/06/2019 If Patient Spent Time In [facility] - Does The Patient Live In [facility]? No Information not available 11/06/2019 In The 14 Days Before Symptom Onset, Have You Had Close Contact With A Person Who Is Under Investigation For COVID-19 While That Person Was Ill? No Information not available 11/06/2019 In The 14 Days Before Symptom Onset, Did The Patient Spend Time In [facility]? No Information not available 11/06/2019 Have You Been To An Area Known To Be High Risk For COVID-19? No Information not available 11/06/2019 Are You Currently Employed? No Information not available 11/23/2020 Are You Deaf Or Do You Have Serious Difficulty Hearing? No Information not available 11/23/2020 What Type Of Diet Are You Following? REGULAR Try To Follow Low Carb Information not available 11/23/2020 Do You Or Have You Ever Used E-cigarettes Or Vape? Current User Of Electronic Cigarettes 8% Nicotine Information not available 06/22/2020 What Is Your Occupation? Disabled Information not available 09/06/2020 Are There Any Guns Present In Your Home? Yes Information not available 06/13/2022 Marital Status Single Informati on not available 09/06/2020 What Was The Date Of Your Most Recent Tobacco Screening? 04/23/2024 Information not available 04/23/2024 What Is Your Relationship Status? Single Information not available 11/23/2020 Do You Use Your Seat Belt Or Car Seat Routinely? Yes Information not available 06/13/2022 Do You Have Smoke And Carbon Monoxide Detectors In Your Home? Yes Information not available 11/23/2020 Are You Passively Exposed To Smoke? No Information not available 11/23/2020 Do You Or Have You Ever Used Smokeless Tobacco? Never Used Smokeless Tobacco Information not available 06/22/2020 General Stress Level Low Information not available 06/22/2020 Do You Feel Stressed (tense, Restless, Nervous, Or Anxious, Or Unable To Sleep At Night)? [id number] Information not available 11/23/2020 Do You Use Any Illicit Or Recreational Drugs? No Information not available 11/23/2020 Do You Use Sunscreen Routinely? No Information not available 11/23/2020 Has Tobacco Cessation Counseling Been Provided? Yes [email or web address] Information not available 02/06/2019 On What Date Was Tobacco Cessation Counseling Provided? 04/23/2024 Information not available 04/23/2024 Do You Or Have You Ever Used Any Other Forms Of Tobacco Or Nicotine? Yes Information not available 08/08/2021 Sex: Male Functional Status Question Answer Note LastModified by Organization D etails LastModified Time Are you able to care for yourself? Yes Information n ot available 11/23/2020 What is your exercise level? None Information not available 11/23/2020 Mental Status None recorded. Family History Relationship Description Onset Age of this Age Resolved Age Notes LastModified by Organization Details LastModified Time Mother History of hypertension [email or web address] Not available 1 15:27:12 Mother Hyperlipidem ia [email or web address] Not available 05/13 15:27:12 Father History of hypertension [email or web address] Not available 1 15:27:12 Medical History Condition Response Coronary Artery Disease N Other N Atrial Fibrillation N High Blood Pressure N Depression N COPD N Blood Clots N Anxiety Disorder N Muscle, Joint, or Bone Problems N Acid Reflux (GERD) N Cancer N Stroke N High Cholesterol Y Liver Disease N Headaches N Kidney or Bladder Problems N Thyroid Problems N GI Problems N Skin Problems N Anemia N Heart Attack (PR) N Diabetes N Seizures/Epilepsy N Asthma N Allergies N Hepatitis N Osteoporosis N Heart Failure N Immunizations Vaccine Type Date Status Note Provider Nam e and Address Organization Details Recorded Time Influenza, split virus, quadrivalent, preservative 9 completed Not Available [facility] 03/12/2023 16:02:53 Tdap 8 completed Not Available [facility] 08/30/2019 02:39:47 Influenza, split virus, quadrivalent, PF 2 completed Kim Powell MA [place], [place] - [facility] 06/13/2022 17:37:06 Past Encounters Encounter ID Performer Location Encounter Start Date Encounter Closed Date Diagnosis/Indication Diagnosis SNOMED-CT Code Diagnosis ICD10 Code [id number] [facility] [address] [place] [address] 09/04/2014 15:52:43 09/07/2014 10:03:41 Lumbar radiculopathy 778740939 Cellulitis of lower limb 639417024 [id number] Karolina Anderson [facility] [address] [place] [address] 11/02/2014 15:02:16 11/02/2014 15:55:05 Cellulitis of lower limb 059392190 [id number] [facility] [address] [place] [address] 02/09/2015 16:17:51 02/11/2015 17:40:48 Lumbar radiculopathy 993902641 [id number] Karolina Anderson [facility] [address] [place] [address] 02/18/2015 15:05:56 02/18/2015 15:53:21 Diabetes mellitus 26025362 [id number] [facility] [address] [place] [address] 05/21/2015 11:05:11 05/21/2015 11:46:54 Diabetes mellitus 45167817 E11.9 Lumbar radiculopathy 128 490805 M54.16 Cellulitis of lower limb 148795576 L03.119 [id number] Karolina Anderson [facility] [address] [place] [address] 05/28/2015 11:16:12 05/28/2015 11:39:12 Lumbar radiculopathy 315826280 M54.16 Diabetes mellitus 819389 09 E11.9 [id number] Leonardo Nuñez PA-C [facility] [address] [place] [address] 06/17/2015 15:07:35 06/17/2015 15:53:03 Lumbar radiculopathy 815162591 M54.16 [id number] Leonardo Nuñez PA-C [facility] [address] [place] [address] 09/20/2015 14:37:15 09/20/2015 15:42:59 Hematochezia 566217304 K62.5 Lumbar radiculopathy 128 915186 M54.16 Morbid obesity 342367039 E66.01 Hypersomni a with sleep apnea 92495141 G47.10 [id number] Leonardo Nuñez PA-C [facility] [address] [place] [address] 01/17/2016 16:03:10 01/18/2016 09:07:59 Diabetes mellitus 42643363 E11.9 Hypersomni a with sleep apnea 73377336 G47.10 Respirator y obstruction 21681980 J98.8 Backache 821364536 M54.9 [id number] Leonardo Nuñez PA-C [facility] [address] [place] [address] 01/27/2016 16:10:53 01/27/2016 17:26:08 Diabetes mellitus 42965544 E11.9 Morbid obesity 871199894 E66.01 [id number] Leonardo Nuñez PA-C [facility] [address] [place] [address] 01/31/2016 10:17:39 02/02/2016 09:56:06 Diabetes mellitus 85180017 E11.9 [id number] Leonardo Nuñez PA-C [facility] [address] [place] [address] 03/22/2016 11:46:50 03/22/2016 13:29:28 Pityriasis 70444327 L21.0 [id number] Leonardo Nuñez PA-C [facility] [address] [place] [address] 05/26/2016 15:17:19 05/26/2016 17:07:14 Otitis externa 5190429 H60.91 [id number] Anastasiya Ramos [facility] [address] [place] [address] 06/02/2016 15:58:09 06/02/2016 16:47:33 Otitis externa 2019525 H60.91 [id number] Leonardo Nuñez PA-C [facility] [address] [place] [address] 11/13/2016 09:33:34 11/13/2016 12:11:52 Otogenic otalgia 30387850 H92.01 [facility] 86063436 R 73.03 [id number] Leonardo Nuñez PA-C [facility] [address] [place] [address] 12/11/2016 15:10:24 12/11/2016 16:16:56 Morbid obesity 237366823 E66.01 Lumbar radiculopathy 128 800549 M54.16 [id number] Leonardo Nuñez PA-C [facility] [address] [place] [address] 06/19/2017 18:05:15 06/19/2017 19:48:57 Body mass index 40+ - severely obese 818572555 Z68.41 [id number] Leonardo Nuñez PA-C [facility] [address] [place] [address] 07/03/2017 17:22:26 07/03/2017 19:35:06 Essential hypertension 21797872 I10 Lumbar radiculopathy 128 765880 M54.16 Morbid obesity 049309851 E66.01 Onychomyco sis of toenails 952723986 B35.1 [id number] Leonardo Nuñez PA-C [facility] [address] [place] [address] 08/07/2017 16:42:46 08/08/2017 15:36:28 Severe obesity 2981377849 9104 E66.01 [id number] Leonardo Nuñez PA-C [facility] [address] [place] [address] 10/05/2017 16:33:17 10/05/2017 17:21:17 Laceration of hand 375288104 S61.411A Verruca vulgaris 0609152 3 B07.8 [id number] Leonardo Nuñez PA-C [facility] [address] [place] [address] 10/15/2017 14:25:29 10/15/2017 16:38:59 Laceration of hand 468401990 S61.411D [id number] Leonardo Nuñez PA-C [facility] [address] [place] [address] 01/17/2018 10:54:38 01/17/2018 11:34:01 Morbid obesity 049618529 E66.01 Lumbar radiculopathy 128 405536 M54.16 Diabetes mellitus 534854 09 E11.9 [id number] Leonardo Nuñez PA-C [facility] [address] [place] [address] 09/05/2018 15:42:02 09/05/2018 16:31:01 Mixed hyperlipidemia 315441434 E78.2 Lumbar radiculopathy 128 128666 M54.16 Verruca vulgaris 0457351 3 B07.8 [id number] Leonardo Nuñez PA-C [facility] [address] [place] [address] 09/11/2018 16:18:47 09/11/2018 17:27:32 Iron deficiency anemia 50958464 D50.8 Complainin g of - melena 749364596 K92.1 [id number] Erin Ham MA [facility] [address] [place] [address] 02/06/2019 15:29:06 02/06/2019 17:43:58 Lumbar radiculopathy 620307364 M54.16 Essential hypertension 12241468 I10 Hyperlipid emia screening 412602894 Z13.137 [id number] Leonardo Nuñez PA-C [facility] [address] [place] [address] 05/06/2019 16:39:30 05/06/2019 17:51:54 Morbid obesity 462302613 E66.01 Lymphedema of lower extremity 586629631 I89.0 [id number] Leonardo Nuñez PA-C [facility] [address] [place] [address] 07/25/2019 15:38:41 07/30/2019 11:22:25 Body mass index 40+ - severely obese 647129095 Z68.41 Cellulitis of lower limb 690123699 L03.119 Lymphedema of lower extremity 251344269 I89.0 [id number] GWEN Flynn [address] [place] [address] 11/06/2019 16:07:42 11/06/2019 17:33:38 Cellulitis of lower limb 287979535 L03.119 Morbid obesity 069997371 E66.01 Lymphedema of lower extremity 809581205 I89.0 Infection of sebaceous cyst 542891948 L72.3 [id number] Leonardo Nuñez PA-C [facility] [address] [place] [address] 11/28/2019 09:26:28 12/03/2019 12:21:03 Morbid obesity 208921550 E66.01 [id number] GWEN Flynn [facility] [address] [place] [address] 06/22/2020 14:54:01 06/23/2020 04:28:53 Essential hypertension 21756196 I10 Morbid obesity 661778747 E66.01 Dysplastic nevus of skin 210203383 D22.5 [id number] Leonardo Nuñez PA-C [facility] [address] [place] [address] 09/06/2020 11:49:35 09/06/2020 16:57:28 Cellulitis of lower limb 592023522 L03.116 [id number] Leonardo Nuñez PA-C [facility] [address] [place] [address] 11/23/2020 17:01:43 11/23/2020 17:56:35 Cellulitis of lower limb 835606381 L03.119 Morbid obesity 667442394 E66.01 Lymphedema of lower extremity 031374023 I89.0 [id number] Leonardo Nuñez PA-C [facility] [address] [place] [address] 12/24/2020 10:44:19 12/27/2020 12:32:59 Long-term drug therapy 910487378 Z79.899 Lymphedema of bilateral lower limbs 8219776877 4113480 I89.0 [id number] Leonardo Nuñez PA-C [facility] [address] [place] [address] 08/08/2021 16:47:35 08/09/2021 10:31:18 Long-term drug therapy 495430832 Z79.899 Lumbar radiculopathy 128 591992 M54.16 Lymphedema 831279340 I89 .0 Mixed anxi ety and depressive disorder 435129767 F41.8 Mixed hyperlipidemia 267 373382 E78.2 Body mass index 40+ - severely obese 264877253 Z68.41 Hyperlipidemia 56097473 E78.2 Essential hypertension 07276452 I10 [id number] Leonardo Nuñez PA-C [facility] [address] [place] [address] 12/01/2021 16:26:01 12/01/2021 16:50:49 Mixed anxiety and depressive disorder 702141079 F41.8 Lymphedema of bilateral lower limbs 1459224441 0954669 I89.0 Hyperlipidemia 33926987 E78.2 Essential hypertension 10424341 I10 [id number] Leonardo Nuñez PA-C [facility] [address] [place] [address] 06/13/2022 16:28:32 06/13/2022 17:20:38 Lumbar radiculopathy 718025593 M54.16 Generalize d anxiety disorder 42190725 F41.1 Mixed hyperlipidemia 267 480098 E78.2 Administra tion of influenza vaccine 08076311 Z23 Exposure t o SARS-CoV-2 476215442 Z20.822 Cellulitis of lower limb 210985914 L03.829 [id number] Leonardo Nuñez PA-C [facility] [address] [place] [address] 11/29/2022 15:01:34 11/30/2022 12:15:17 Lymphedema 602184780 I89.0 Mixed anxi ety and depressive disorder 276929683 F41.8 Mixed hyperlipidemia 267 785728 E78.2 Generalize d anxiety disorder 45016378 F41.1 Essential hypertension 43192911 I10 Hyperlipidemia 25566467 E78.2 Obesity 085466180 E66.01 [id number] Leonardo Nuñez PA-C [facility] [address] [place] [address] 03/05/2023 14:44:55 03/07/2023 08:52:18 Hyperlipidemia 58647149 E78.2 Essential hypertension 86354567 I10 Body mass index 40+ - severely obese 764519477 Z68.45 Lymphedema of bilateral lower limbs 0505014170 1834612 I89.0 [id number] Leonardo Nuñez PA-C [facility] [address] [place] [address] 05/30/2023 15:06:15 06/07/2023 11:02:59 Long-term drug therapy 003555781 Z79.899 Chronic re current sinusitis 477661366 J32.4 Mixed hyperlipidemia 267 434970 E78.2 Essential hypertension 12725448 I10 Overweight 234648872 E66 .3 Hyperlipidemia 69198247 E78.2 Generalize d atopic dermatitis 912823691 L20.89 [id number] Leonardo Nuñez PA-C [facility] [address] [place] [address] 01/11/2024 15:01:27 01/16/2024 14:57:37 Pain of toe of right foot 4517751806 10996 M79.674 Cellulitis of right lower limb 8066724332 7329033 L03.115 Morbid obesity 595906863 E66.01 Lymphedema 376439153 I89 .0 [id number] Leonardo Nuñez PA-C [facility] [address] [place] [address] 04/03/2024 15:32:42 04/07/2024 12:55:23 Cough 68851436 R05.9 Generalize d anxiety disorder 75054768 F41.1 Mixed hyperlipidemia 267 216697 E78.2 Morbid obesity 704377230 E66.01 [id number] Leonardo Nuñez PA-C [facility] [address] [place] [address] 04/23/2024 15:34:42 04/24/2024 08:34:02 Generalized anxiety disorder 85364598 F41.1 Primary insomnia 3131282 F51.01 Morbid obesity 859420655 E66.01 Health Concerns Section Related Observation LastModified by Organization Detai ls LastModified Time None Recorded Concern Status LastModified by Organization Details LastModified Time None Recorded Advance Directives Directive N: Payers Encounter Date Sequence Insurance Name Policy Number Policy Fisher Covered Member ID Fisher Member ID Guarantor Name 03/05/2023 2 [place]ARE OR MEDICARE REPLACEMENT PRIMARY) Andrews Morgan [id number] Andrews Morgan 03/05/2023 1 [facility] (MEDICARE REPLACEMENT/AD VANTAGE - HMO) [id number] Andrews Morgan [id number] Andrews Morgan 05/30/2023 2 [place] OR MEDICARE REPLACEMENT PRIMARY) Andrews Morgan [id number] Andrews Morgan 05/30/2023 1 [facility] (MEDICARE REPLACEMENT/AD VANTAGE - HMO) [id number] Andrews Eddie [id number] Andrews Eddie 01/11/2024 2 [place] OR MEDICARE REPLACEMENT PRIMARY) Andrews W W Eddie [id number] Andrews Eddie 01/11/2024 1 [facility] (MEDICARE REPLACEMENT/AD VANTAGE - HMO) [id number] Andrews Eddie [id number] Andrews Eddie 04/03/2024 2 [place] OR MEDICARE REPLACEMENT PRIMARY) Andrews W W Eddie [id number] Andrews Eddie 04/03/2024 1 [facility] (MEDICARE REPLACEMENT/AD VANTAGE - HMO) [id number] Andrews Eddie [id number] Andrews Eddie 04/23/2024 2 [place] OR MEDICARE REPLACEMENT PRIMARY) Andrews W W Eddie [id number] Andrews Eddie 04/23/2024 1 [facility] (MEDICARE REPLACEMENT/AD VANTAGE - HMO) [id number] Andrews Eddie [id number] Andrews Eddie Notes Date Note Type Note Provider Name and Address Organization Details Recorded Time 03/05/2023 text/html needs med 3 giorgio h check up...vs lipids...would like a scooter but has not had a wheelchair....sev ere obesity and severe lymphedema precludes a manual wheelchair Leonardo Nuñez PA-C Attn: [address] [place], [address], [facility] 03/05/2023 15:04:11 05/30/2023 text/html headaches and sinuses...pressur e...has allergy and sinus issues constantly...3 month check vs lorazepam...also gets transient dizziness when changing position...wants to discuss sinuplasty... Leonardo Nuñez PA-C Attn: [address] [place], [address], [facility] 05/30/2023 15:56:28 01/11/2024 text/html Yearly check up for insurance. F/u from ER visit for cellulitis in right inner thigh. Was given Rx for Clindamyacin. Started on 01/05/24. Wants referral to podiatry. Right 5th digit is sore. Started about a month ago. Feels like it is a bruised bone . Leonardo Nuñez PA-C Attn: [address] [place], [address], [facility] 01/11/2024 15:59:50 04/03/2024 text/html sinus pain and sore throat...last week...lungs as well Leonardo Nuñez PA-C Attn: [address] [place], [address], [facility] 04/03/2024 16:14:55 04/23/2024 text/html says he has developed tremors...through the chest and shoulders..never while active but only when stationary... Leonardo Nuñez PA-C Attn: [address] [place], [address], [facility] 04/23/2024 16:00:00
--- OUTSIDE RECORDS SUMMARY | 2024-08-13 23:50 | XMS_ITS | Encounter Summary ---
Author Organization [facility] Address [address] [place] [address]. [place] [address] [place] [address] Care Team Providers Care Safety Equipment Tester Name Role Phone Sukhwinder Nuñez Primary Care Provider [phone] Reason for Visit * Reason Comments Edema * Physical Therapy (Routine) - Authorized Specialty Diagnoses / Procedures Referred By Contac t Referred To Contact PHYSICAL THERAPY / [facility] Physical Therapy Diagnoses Lymphedema, not elsewhere classified Lymphedema Procedures Sukhwinder Evans PA [address] [place] [address] Phone: tel: fax: Kathy Johnson, PT [address] [place] [address] Phone: tel: fax: Referral ID Status Reason Start Date Expiration Date Visits Requested Visits Authorized [id number] Authorized Physical Therapy 02/19/2024 20 20 Encounter Details Date Type Department Care Team (Latest Contact Info) Description 03/04/2024 2:28 PM CDT - 03/04/2024 11:59 PM T Hospital Encounter [facility] [address] [place] [address] Kathy Johnson, PT [address] [place] [address] Edema Discharge Disposition: Home or [...] on file 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 Gender Identity Not on file Sexual Orientation [...] None Objective: Treatment Performed: Therapeutic Exercise - 09986 Minutes Performed: Intervention: - - - Manual Therapy - 02274 Minutes Performed: Intervention: - - - Neuromuscular Reeducation - 54622 Minutes Performed: Intervention: - - - Therapeutic Activities - 36915 Minutes Performed: 60' - Measurements for custom [...] 1 unit for right leg of BNR [id number] FARROWWRAP STRONG TTF, BRN [id number] STRONG TTF TOP BAND XL, BNR [id number] STRONG TTF FOOT SIZE MEDIUM, FARROWWRAP CUSTOM LOWER EXTREMITY STRONG THIGH HIGH 30-40 MMHG GRADIENT COMPR ESSION WRAP WITH ADJUSTABLE STRAPS EACH for daytime and 1 unit for right and 1 unit for left [employer] FULL LENGTH nighttime use due to the severity of their lymphedema. I am recommending the patient receives these compression garments from [employer]. The requested compression garments are essential to [...] lymphedema documented in this encounter Care Teams Safety Equipment Tester Relationship Specialty Start Date End Date Sukhwinder Nuñez PA [address] [place] [address] PCP - General PHYSICIAN FOOD ASSEMBLER 05/03/19 documented as of this encounter
--- OUTSIDE RECORDS SUMMARY | 2024-08-13 23:50 | XMS_ITS | Encounter Summary ---
Author Organization [facility] Address [address] [place] [address]. 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
--- OUTSIDE RECORDS SUMMARY | 2024-08-13 23:50 | XMS_ITS | Encounter Summary ---
Author Organization [facility] Address [address] [place] [address]. 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 Gender Identity Not on file Sexual Orientation Not on file documented as of this encounter Last Filed Vital Signs Vital Sign Reading Time Taken Comments Blood Pressure 133/70 08/03/2024 7:55 PM LEAD ARCHITECT Pulse 99 08/03/2024 7:15 PM LEAD ARCHITECT Temperature 36.5 ??C (97.7 ??F) 08/03/2024 7:15 PM CS T Respiratory Rate 16 08/03/2024 7:15 PM LEAD ARCHITECT Oxygen Saturation 93% 08/03/2024 7:55 PM LEAD ARCHITECT Inhaled Oxygen Concentration - - Weight 235.2 kg (518 lb 9.6 oz) 08/03/2024 7:15 PM LEAD ARCHITECT Height 175.3 cm (5' 9 ) 08/03/2024 7:15 PM LEAD ARCHITECT Body Mass Index 76.58 08/03/2024 7:15 PM LEAD ARCHITECT documented in this encounter Discharge Instructions * Discharge Instructions* Nallely Keller MD - 08/03/2024 7:49 PM LEAD ARCHITECT Use humidifiers at home. Use nose clip if you start having a nosebleed again. If you continue to bleed for an hour and unable to stop the nosebleed, please return to the emergency department. Otherwise follow with your primary care doctor in 2 to 3 days. ARCHITECT * Attachments The following attachments cannot be sent through Care Everywhere. * Humidifiers (Micronesian) * Nosebleeds (Micronesian) documented in this encounter Medications at Time [...] MDM: [] ED Course as of 08/03/242005 [place] Aug 03, 20241945 Patient's blood pressure on [...] FROM NOSE Disposition: DELMA Flynn [address] [place] [id number] Schedule an appointment as soon as possible for a visit in 1 week As needed Discharge Medications: New Prescriptions No medications on file @CREDENTIALS@ 08/03/24 Nallely Keller MD 08/03/242005 ARCHITECT * Lucy Sharma RN - 08/03/2024 7:18 PM CST Pt arrives per pov from home. Pt c/o bleeding from L nare that started at 1600. No active bleeding noted at this time. ARCHITECT documented in this encounter Plan of Treatment Not on file documented as of this encounter Visit Diagnoses Diagnosis Epistaxis- Primary documented in this encounter Care Teams Carbon Blocks Press Operator Relationship Specialty Start Date End Date Sukhwinder Nuñez PA [address] [place] [address] PCP - General PHYSICIAN SCAFFOLD BUILDER 05/03/19 documented as of this encounter
--- OUTSIDE RECORDS SUMMARY | 2024-08-13 23:50 | XMS_ITS ---
Author Organization Unknown Address [address] [place] [phone] Phone Care Team Providers Care Splicing Supervisor Name Role Phone SABRINA PATTERSON Attending Unavailable [...] Erik Rutledge D.O. AP: AP Report ID: [id number] Reading Location: [place] [address] Social History Type Status Start Date End Date Code Code Syst em Smoking History Current every day smoker [id number] SNOMED CT Sex Male Hospital Discharge Instructions Should you have any questions prior to discharge, please contact a member of your healthcare team. If you have left the hospital and have any questions, please contact your primary care physician. Reason For Referral No Data Found Plan of Treatment CT Sinus WO Contrast (56368) 06/05/2023 Encounters Encounter Diagnosis Start Date Code Code Sys tem Chronic pansinusitis 06/05/2023 SNOMED- CT Personal Care Team Section Performer Name Performer Role Active Date Inactive Da te
--- OUTSIDE RECORDS SUMMARY | 2024-08-13 23:50 | XMS_ITS | Encounter Summary ---
Author Organization [facility] Address [address] [place] [address]. 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
--- OUTSIDE RECORDS SUMMARY | 2024-08-13 23:50 | XMS_ITS | Encounter Summary ---
Author Organization [facility] Address [address] [place] [address]. 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 Qty: 20 tablet, Refills: 0 Class: Eprescribe Pharmacy: [facility] [place], [place] - [address] (Ph #: [phone]) DELMA Flynn [address] [facility] [address] As needed Clinical Impression Cellulitis (Primary) Luanne [...] - 145 MMOL/L 05/03/2019 12:46 PM CDT [facility] POTASSIUM S/P/B 3.3(L) 3.5 - 5.1 MMOL/L 05/03/2019 12:46 PM CDT [facility] CHLORIDE S/P/B 100 98 - 107 MMOL/L 05/03/2019 12:46 PM CDT [facility] CO2 34.1(H) 21.0 - 32.0 MMOL/L 05/03/2019 12:46 PM CDT [facility] GLUCOSE 122(H) 70 - 99 MG/DL 05/03/2019 12:46 PM CDT [facility] Comment: FASTING GLUCOSE 100 TO 125 MG/DL IS CONSISTENT WITH IMPAIRED FASTING GLUCOSE. FASTING GLUCOSE >125 MG/DL IS CONSISTENT WITH DIABETES. RANDOM GLUCOSE >200 MG/DL WITH HYPERGLYCEMIC SYMPTOMS IS CONSISTENT WITH DIABETES. PER ADA GUIDELINES BUN 19 6 - 24 MG/DL 05/03/2019 12:46 PM CDT [facility] CREATININE S/P/B 1.05 0.70 - 1.30 MG/DL 05/03/2019 12:46 PM CDT [facility] CALCIUM S/P/B 8.8 8.4 - 10.5 MG/DL 05/03/2019 12:46 PM CDT [facility] BILIRUBIN TOTAL S/P/B 0.7 0.2 - 1.0 MG/DL 05/03/2019 12:46 PM CDT [facility] ALKALINE PHOSPHATASE S/P/B 75 45 - 115 U/L 05/03/2019 12:46 PM CDT [facility] AST 16 15 - 37 U/L 05/03/2019 12:46 PM T [facility] ALT 23 16 - 63 U/L 05/03/2019 12:46 PM T [facility] TOTAL PROTEIN S/P/B 8.2 6.4 - 8.2 G/DL 05/03/2019 12:46 PM T [facility] ALBUMIN S/P/B 3.7 3.4 - 5.0 G/DL 05/03/2019 12:46 PM T [facility] ANION GAP 5.9 5.0 - 15.0 MMOL/L 05/03/2019 12:46 PM T [facility] OSMOLALITY (CALC) 294 MOSM/KG 05/03/2019 12:46 PM T [facility] Comment:REFERENCE RANGE NOT ESTABLISHED EGFR NON-AFR. AMER. 88(L) >89 ML/MIN/1 .73 M2 05/03/2019 12:46 PM T [facility] EGFR AFR. AMER. >90 >89 ML/MIN/1 .73 M2 05/03/2019 12:46 PM [facility] GFR NOTES THE ESTIMATED GFR IS CALCULATED USING THE 2009 CKD-EPI EQUATION. THE FOLLOWING CATEGORIES FOR GRADING RENAL FUNCTION ARE RECOMMENDED BY THE INTERNATIONAL SOCIETY OF NEPHROLOGY (KDIGO 2012 CLINICAL PRACTICE GUIDELINE). 05/03/2019 12:46 PM T [facility] Comment: G1,NORMAL OR HIGH: >89 ml/min/1.73 m2 G2,MILDLY DECREASED: 60-89 ml/min/1.73 m2 G3A,MILDLY TO MODERATELY DECREASED: 45-59 ml/min/1.73 m2 G3B,MODERATELY TO SEVERELY DECREASED: 30-44 ml/min/1.73 m2 G4,SEVERELY DECREASED: 15-29 ml/min/1.73 m2 G5,KIDNEY FAILURE: <15 ml/min/1.73 m2 05/03/2019 12:2 3 PM CDT Lux Fabian MD LABORATORY Final Resul t [facility] [address] [place] [address], * (ABNORMAL) CBC W/DIFF AUTOMATED (05/03/2019 12:23 PM CDT) WBC 9.6 4.5 - 10.8 x10'3/uL 05/03/2019 12:30 PM CDT [facility] RBC 5.58 4.50 - 6.10 x10'6/uL 05/03/2019 12:30 PM CDT [facility] HGB 15.2 13.0 - 18.0 G/DL 05/03/2019 12:30 PM CDT [facility] HCT 49.9 37.0 - 52.0 % 05/03/2019 12:30 PM CDT [facility] MCV 89.4 78.0 - 100.0 FL 05/03/2019 12:30 PM CDT [facility] MCH 27.2 27.0 - 31.0 PG 05/03/2019 12:30 PM CDT [facility] MCHC 30.5(L) 33.0 - 36.0 G/DL 05/03/2019 12:30 PM CDT [facility] RDW 15.1(H) 11.5 - 14.5 % 05/03/2019 12:30 PM CDT [facility] PLT 145(L) 150 - 350 x10'3/uL 05/03/2019 12:30 PM CDT [facility] MPV 9.6 7.4 - 10.4 FL 05/03/2019 12:30 PM CDT [facility] DIFFERENTIAL COMMENT NORMAL REFERENCE RANGE NOT ESTABLISHED FOR THE PROPORTIONAL LEUKOCYTE DIFFERENTIAL. 05/03/2019 12:30 PM CDT [facility] SEG NEUTROPHILS 82.9 % 9 12:30 PM CDT [facility] LYMPHOCYTES 7.9 % 05/03/2019 12:30 PM CDT [facility] MONOCYTES 6.4 % 05/03/2019 12:30 PM CDT [facility] EOSINOPHILS 2.0 % 05/03/2019 12:30 PM CDT [facility] BASOPHILS 0.5 % 05/03/2019 12:30 PM CDT [facility] IMMATURE GRANS % 0.3 % 05/03/20 12:30 PM CDT [facility] NRBC 0.0 % 05/03/2019 12:30 PM CDT [facility] ABS. NEUTROPHILS 7.99 1.60 - 8.30 x10'3/uL 05/03/2019 12:30 PM CDT [facility] ABS. LYMPHOCYTES 0.76(L) 0.80 - 4.70 x10'3/uL 05/03/2019 12:30 PM CDT [facility] ABS. MONOCYTES 0.62 0.00 - 1.50 x10'3/uL 05/03/2019 12:30 PM CDT [facility] ABS. EOSINOPHILS 0.19 0.00 - 0.40 x10'3/uL 05/03/2019 12:30 PM CDT [facility] ABS. BASOPHILS 0.05 0.00 - 0.20 x10'3/uL 05/03/2019 12:30 PM CDT [facility] ABS. IMMATURE GRANULOCYTES 0.03 0.00 - 0.03 x10'3/uL 05/03/2019 12:30 PM CDT [facility] ABS. NUCLEATED RBC'S 0.00 0.00 x10'3/uL 05/03/2019 12:30 PM CDT [facility] 05/03/2019 12:2 3 PM CDT us Lux Fabian MD LABORATORY Final Resul t [facility] [address] [place] [address], * D-DIMER, QUANTITATIVE (05/03/2019 12:23 PM CDT) D-DIMER 324 <501 ng{FEU}/mL 05/03/2019 12:40 PM CDT [facility] Comment: A D DIMER RESULT LESS THAN OR EQUAL TO 500 NG/ML FEU HAS A NEGATIVE PREDICTIVE VALUE GREATER THAN 96% FOR THE EXCLUSION OF ACUTE PULMONARY EMBOLISM OR DEEP VEIN THROMBOSIS WHEN THERE IS LOW TO MODERATE PRETEST PROBABILITY. 05/03/2019 12:2 3 PM CDT us Lux Fabian MD LABORATORY Final Resul t [facility] [address] [place] [address], documented in this encounter Visit Diagnoses Diagnosis [...] RN) documented in this encounter Care Teams Electrical Engineering Director Relationship Specialty Start Date End Date Sukhwinder Nuñez PA [address] [place] [address] PCP - General PHYSICIAN VARNISHER 05/03/19 documented as of this encounter
--- OUTSIDE RECORDS SUMMARY | 2024-08-13 23:50 | XMS_ITS | Clinical Summary ---
Author Organization [facility] Address [address] [place] [address]. [place] [address] [place] [address] Care Team Providers Care Merchandise Examiner Name Role Phone Sukhwinder Nuñez Primary Care Provider [phone] Allergies No known active allergies Medications simvastatin [...] Department Care Team Description 08/03/2024 7:11 PM AUTOMATED TELLER MANAGER - 08/03/2024 7:56 PM [facility] Emergency [place] [facility] [address] [place] [address] Nallely Keller MD Nosebleeds Discharge Disposition: Home [...] on file Legal Sex Male 5:49 PM AUTOMATED TELLER MANAGER Gender Identity Not on file Sexual Orientation Not on file Last Filed Vital Signs Vital Sign Reading Time Taken Comments Blood Pressure 133/70 08/03/2024 7:55 PM AUTOMATED TELLER MANAGER Pulse 99 08/03/2024 7:15 PM AUTOMATED TELLER MANAGER Temperature 36.5 ??C (97.7 ??F) 08/03/2024 7:15 PM CS T Respiratory Rate 16 08/03/2024 7:15 PM AUTOMATED TELLER MANAGER Oxygen Saturation 93% 08/03/2024 7:55 PM AUTOMATED TELLER MANAGER Inhaled Oxygen Concentration - - Weight 235.2 kg (518 lb 9.6 oz) 08/03/2024 7:15 PM AUTOMATED TELLER MANAGER Height 175.3 cm (5' 9 ) 08/03/2024 7:15 PM AUTOMATED TELLER MANAGER Body Mass Index 76.58 08/03/2024 7:15 PM AUTOMATED TELLER MANAGER Plan of Treatment Health Maintenance Due Date [...] patient's age to complete this topic Insurance [facility] [place] [address] [place] [address] Care Teams Merchandise Examiner Relationship Specialty Start Date End Date Sukhwinder Nuñez PA [address] [place] [address] PCP - General PHYSICIAN MOTOR AND CHASSIS INSPECTOR 05/03/19
--- OUTSIDE RECORDS SUMMARY | 2024-08-13 23:50 | XMS_ITS | Encounter Summary ---
Author Organization [facility] Address [address] [place] [address]. 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
--- OUTSIDE RECORDS SUMMARY | 2024-08-13 23:50 | XMS_ITS | Encounter Summary ---
Author Organization [facility] Address [address] [place] [address]. [place] [address] [place] [address] Care Team Providers Care Emergency Medical Services Coordinator Name Role Phone Sukhwinder Nuñez Primary Care Provider [phone] Reason for Visit * Reason Comments Skin Problem Leg Swelling Encounter Details Date Type Department Care Team (Late st Contact Info) Description 03/12/2023 2:14 PM CDT - 03/12/2023 2:45 PM CDT Emergency [place] [facility] [address] [place] [address] [place] [address] Kendall Diaz MD [address] [place] [address] Skin Problem; Leg Swelling Discharge Disposition: [...] on file Legal Sex Male 5:49 PM PHONE 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
--- OUTSIDE RECORDS SUMMARY | 2024-08-13 23:50 | XMS_ITS | Encounter Summary ---
Author Organization [facility] Address [address] [place] [address]. [place] [address] [place] [address] Care Team Providers Care Coat Operator Name Role Phone Sukhwinder Nuñez Primary Care Provider [phone] Reason for Visit * Reason Comments Edema * Physical Therapy (Routine) - Authorized Specialty Diagnoses / Procedures Referred By Contac t Referred To Contact PHYSICAL THERAPY / [facility] Physical Therapy Diagnoses Lymphedema, not elsewhere classified Lymphedema Procedures Sukhwinder Evans PA [address] [place] [address] Phone: tel: fax: Kathy Johnson, PT [address] [place] [address] Phone: tel: fax: Referral ID Status Reason Start Date Expiration Date Visits Requested Visits Authorized [id number] Authorized Physical Therapy 02/19/2024 20 20 Encounter Details Date Type Department Care Team (Latest Contact Info) Description 02/19/2024 1:00 PM CDT - 02/19/2024 11:59 PM T Hospital Encounter [facility] [address] [place] [address] Kathy Johnson, PT [address] [place] [address] Edema Discharge Disposition: Home or [...] on file 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 He has a pump but does notuse [...] 94 HIPS 175 Treatment Performed: Therapeutic Activity 76073: Time: 25' - Pt Education Discussed with [...] fitting and measurements. Treatment/Interventions: Therapeutic Exercise - 54235, Therapeutic Activity - 65241, and Manual Therapy - 91343 Frequency: Return as needed for garment measurements and fitting. THE PROVIDER, I AM IN AGREEMENT WITH THE STATED THERAPY PLAN OF CARE. Provider Signature: Date: In signing this document, provider certifies that prescribed rehabilitation is a medical necessity. Date: 03/04/24 Patient Name: Andrews Morgan Patient : [address] [place] [address] documented in this encounter Plan of Treatment Not on file documented as of this encounter Visit Diagnoses Diagnosis Lymphedema- Primary Other lymphedema documented in this encounter Care Teams Coat Operator Relationship Specialty Start Date End Date Sukhwinder Nuñez PA [address] [place] [address] PCP - General PHYSICIAN FURNACE ROOM SUPERVISOR 05/03/19 documented as of this encounter
--- OUTSIDE RECORDS SUMMARY | 2024-08-13 23:50 | XMS_ITS | Encounter Summary ---
Author Organization [facility] Address [address] [place] [address]. 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
--- OUTSIDE RECORDS SUMMARY | 2024-08-13 23:51 | XMS_ITS | Encounter Summary ---
Author Organization [facility] Address [address] [place] [address]. [place] [address] [place] [address] Care Team Providers Care Reclamation Kettle Tender Name Role Phone Sukhwinder Nuñez Primary Care Provider [phone] Encounter Details Date Type Department Care Team (Late st Contact Info) Description 01/18/2019 Abstract [facility] CONVERSION [address] [place] [address] , Generic ConversionMD Social History Tobacco Use Types Packs/Day Years Used Date Smoking Tobacco: Never Assessed Sex and Gender Information Value Date Recorded Sex Assigned at Not on file Legal Sex Male 5:49 PM QUALITY CONTROL Gender Identity Not on file Sexual Orientation Not on file documented as of this encounter Plan of Treatment Not on file documented as of this encounter Visit Diagnoses Not on filedocumented in this encounter Care Teams Reclamation Kettle Tender Relationship Specialty Start Date End Date Sukhwinder Nuñez PA [address] [place] [address] PCP - General PHYSICIAN WAREHOUSE PROCESSOR 05/03/19 documented as of this encounter
--- OUTSIDE RECORDS SUMMARY | 2024-08-13 23:51 | XMS_ITS | Encounter Summary ---
Author Organization [facility] Address [address] [place] [address]. 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/ZIP Co de Phone Number [facility] [address] [place] [address], * LACTIC ACID (04/23/2017 5:45 PM CDT) Pathologist [facility] LACTIC ACID VENOUS 1.7 0.5 - 2.2 MMOL/L 04/23/2017 6:15 PM CDT [facility] PLASMA SPECIMEN / Unknown 04/23/2017 5:45 PM CDT 04/23/2017 6:00 PM CDT us Generic Conversion Md [facility] Final R esult Performing Organization Address City/[facility]/ZIP Co de Phone Number [facility] [address] [place] [address], [place] [phone] * (ABNORMAL) COMPREHENSIVE METABOLIC PANEL (04/23/2017 5:45 PM CDT) Pathologist [facility] GLUCOSE 91 70 - 99 MG/DL 04/23/2017 6:22 PM CDT [facility] BUN 10 9 - 21 MG/DL 04/23/2017 6:22 PM CDT [facility] CREATININE S/P/B 0.96 0.72 - 1.25 MG/DL 04/23/2017 6:22 PM CDT [facility] SODIUM S/P/B 140 136 - 145 MMOL/L 04/23/2017 6:22 PM T [facility] POTASSIUM S/P/B 3.3(L) 3.5 - 5.1 MMOL/L 04/23/2017 6:22 PM T [facility] CHLORIDE S/P/B 101 98 - 107 MMOL/L 04/23/2017 6:22 PM T [facility] CO2 28.0 22.0 - 29.0 MMOL/L 04/23/2017 6:22 PM T [facility] CALCIUM S/P/B 9.5 8.4 - 10.2 MG/DL 04/23/2017 6:22 PM T [facility] BILIRUBIN TOTAL S/P/B 1.1 0.2 - 1.2 MG/DL 04/23/2017 6:22 PM T [facility] TOTAL PROTEIN S/P/B 7.6 6.0 - 8.3 G/DL 04/23/2017 6:22 PM T [facility] ALBUMIN S/P/B 4.1 3.5 - 5.2 G/DL 04/23/2017 6:22 PM T [facility] AST 12 5 - 34 U/L 04/23/2017 6:22 PM [facility] ALT 22 0 - 55 U/L 04/23/2017 6:22 PM T [facility] ALKALINE PHOSPHATASE S/P/B 70 50 - 136 U/L 04/23/2017 6:22 PM T [facility] OSMOLALITY (CALC) 278 275 - 300 MOSM/KG 04/23/2017 6:22 PM [facility] A/G RATIO 1.2 1.0 - 1.6 RATIO 04/23/2017 6:22 PM [facility] BUN CREATININE RATIO 10.4(L) 12 - 20 04/23/2017 6:22 PM T [facility] ANION GAP 11.0 7 - 16 MMOL/L 04/23/2017 6:22 PM T [facility] EGFR NON-AFR. AMER. >60 >60 ML/MIN/1.7 3 M2 04/23/2017 6:22 PM CDT [facility] EGFR AFR. AMER. >60 >60 ML/MIN/1.7 3 M2 04/23/2017 6:22 PM CDT [facility] 04/23/2017 5:45 PM CDT 04/23/2017 6:00 PM CDT us Generic Conversion Md [facility] Final R esult [facility] [address] [place] [address], * (ABNORMAL) CBC W/DIFF AUTOMATED (04/23/2017 5:45 PM CDT) WBC 9.8 4.5 - 10.8 x10'3/uL 04/23/2017 6:04 PM CDT [facility] RBC 4.97 4.50 - 6.10 x10'6/uL 04/23/2017 6:04 PM CDT [facility] HGB 14.0 13.0 - 18.0 G/DL 04/23/2017 6:04 PM CDT [facility] HCT 42.8 37.0 - 52.0 % 04/23/2017 6:04 PM CDT [facility] MCV 86.1 78.0 - 100.0 FL 04/23/2017 6:04 PM CDT [facility] MCH 28.2 27.0 - 31.0 PG 04/23/2017 6:04 PM CDT [facility] MCHC 32.7(L) 33.0 - 36.0 G/DL 04/23/2017 6:04 PM CDT [facility] RDW 14.9(H) 11.5 - 14.5 % 04/23/2017 6:04 PM CDT [facility] PLT 154 150 - 350 x10'3/uL 04/23/2017 6:04 PM CDT [facility] MPV 10.3 7.4 - 10.4 FL 04/23/2017 6:04 PM CDT [facility] SEG NEUTROPHILS 78.0 % 7 6:04 PM CDT [facility] LYMPHOCYTES 10.2 % 04/23/2017 6:04 PM CDT [facility] MONOCYTES 9.6 % 04/23/2017 6:04 PM CDT [facility] EOSINOPHILS 1.2 % 04/23/2017 6:04 PM CDT [facility] BASOPHILS 0.4 % 04/23/2017 6:04 PM CDT [facility] IMMATURE GRANS % 0.6 % 04/23/20 17 6:04 PM CDT [facility] NRBC 0.0 % 04/23/2017 6:04 PM CDT [facility] ABS. NEUTROPHILS 7.64 1.60 - 8.30 x10'3/uL 04/23/2017 6:04 PM CDT [facility] ABS. LYMPHOCYTES 1.00 0.80 - 4.70 x10'3/uL 04/23/2017 6:04 PM CDT [facility] ABS. MONOCYTES 0.94 0.00 - 1.50 x10'3/uL 04/23/2017 6:04 PM CDT [facility] ABS. EOSINOPHILS 0.12 0.00 - 0.40 x10'3/uL 04/23/2017 6:04 PM CDT [facility] ABS. BASOPHILS 0.04 0.00 - 0.20 x10'3/uL 04/23/2017 6:04 PM CDT [facility] ABS. IMMATURE GRANULOCYTES 0.06(H) 0.00 - 0.03 x10'3/uL 04/23/2017 6:04 PM CDT [facility] ABS. NUCLEATED RBC'S 0.00 0.00 x10'3/uL 04/23/2017 6:04 PM CDT [facility] OTHER (type in comments) 04/23/2017 5:45 PM CDT 04/23/2017 6:00 PM CDT Comment:WHOLE BLOOD SAMPLE us Generic Conversion Md [facility] Final R esult Performing Organization Address [facility]/ZIP Co de Phone Number [facility] [address] [place] [address], [place] [phone] * CULTURE, BACTERIA, BLOOD (04/23/2017 5:25 PM CDT) SPEC DESCRIPTION BLOOD 04/23/2017 5:53 PM CDT [facility] SPECIAL REQUESTS NO SPECIAL REQUEST 04/23/2017 5:53 PM CDT [facility] CULTURE RESULT NO GROWTH 5 DAYS 04/28/2017 6:06 AM CDT [facility] BLOOD SPECIMEN OBTAINED FOR BLOOD CULTURE / Unknown 04/23/2017 5:25 PM CDT 04/23/2017 6:01 PM CDT us Generic Conversion Md [facility] MICROBIOLOGY - GENERAL ORDERABLES Final Result Performing Organization Address [facility] Co de Phone Number [facility] [address] [place] [address], [place] [phone] documented in this encounter Visit Diagnoses Diagnosis Cellulitis of extremity documented in this encounter
--- OUTSIDE RECORDS SUMMARY | 2024-08-13 23:51 | XMS_ITS | Encounter Summary ---
Author Organization [facility] Address [address] [place] [address]. [place] [address] [place] [address] Care Team Providers Care Timber Management Technician Name Role Phone Unavailable Primary Care Provider Unavailabl e Encounter Details Date Type Department Care Team (Late st Contact Info) Description 06/07/2017 Abstract [facility] [address] [place] [address] Kendall Diaz MD [address] [place] [address] Social History Tobacco Use Types Packs/Day Years Used Date Smoking Tobacco: Never Assessed Sex and Gender Information Value Date Recorded Sex Assigned at Not on file Legal Sex Male 5:49 PM NURSING HOME ADMINISTRATOR Gender Identity Not on file Sexual Orientation Not on file documented as of this encounter Plan of Treatment Not on file documented as of this encounter Visit Diagnoses Diagnosis Cellulitis of right lower extremity Cellulitis and abscess of leg, except foot documented in this encounter
--- OUTSIDE RECORDS SUMMARY | 2024-08-13 23:53 | XMS_ITS | Encounter Summary ---
Author Organization [employer] Care Team Providers Care Popcorn Machine Operator Name Role Phone Sukhwinder Nuñez Primary Care Provider Encounter Details Date Type Department Care Team [...] on file Legal Sex Male 2:09 PM CAR PUSHER Gender Identity Not on file Sexual Orientation [...] on filedocumented in this encounter Care Teams Popcorn Machine Operator Relationship Specialty Start Date End Date Sukhwinder Nuñez PAC [address] [place] [address] PCP - General Physician Pail Tester 11/24/15 documented as of this encounter
--- OUTSIDE RECORDS SUMMARY | 2024-08-13 23:53 | XMS_ITS | Encounter Summary ---
Author Organization [facility] Address [address] [place] [address] Phone Care Team Providers Care Worm Picker Name Role Phone Leonardo Nuñez Primary Care Provider [phone] Reason for Visit * Reason Comments Skin Lesion Melanocytic nevus * Consult, Test & Initiate Treatment (Routine) - Closed Specialty Diagnoses / Procedures Referred By Jovanny t Referred To Contact General Surgery Diagnoses Melanocytic nevi of trunk Leonardo Nuñez, [facility] [address] [place] [address] Phone: tel: fax: Markos Mckinley MD [address] [address] Phone: tel: fax: Referral ID Status Reason Start Date Expiration Date Visits Re quested Visits Authorized [id number] Closed 1 1 Encounter Details Date Type Department Care Team (Late st Contact Info) Description 12/22/2020 11:15 AM CDT Office Visit [facility] - General Surgery - [place] #[address] [phone] Markos cMkinley MD [address] [address] Skin lesion of right leg (Primary Dx) [...] on file 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 Patient was seen by donor relations associate for lesion that he has had for [...] HEMORRHOID BANDING; Surgeon: Tony Campos MD; Location: [facility]; Service: Gastroenterology ??? UPPER GASTROINTESTINAL ENDOSCOPY N/A 10/16/2018 Procedure: EGD MACEY TEST, RANDOM GASTRIC BIOPSIES, GE JUNCTION BIOPSIES, PROXIMAL AND DISTAL ESOPHAGEAL BIOPSIES; Surgeon: Tony Campos MD; Location: [facility]; Service: Gastroenterology ??? WISDOM TOOTH [...] stated above. This note was dictated using [employer] dictation system and there may be errors in milk delivery driver. Despite proof reading the note, there may be mistakes and I apologize for those. By: Markos Mckinley MD, 12/22/2020, 12:26 PM CDT Primary Care Physician: LEONARDO NUÑEZ, PAC documented in this encounter Procedure Notes * Markos Mckinley MD - 12/22/2020 11:15 AM CDTAssociated Order(s): EXC SKIN BENIG 1.1-2CM TRUNK,ARM,LEG Procedure(s): EXC SKIN BENIG 1.1-2CM TRUNK,ARM,LEG Surgeon:Markos Mckinley MD Franchise Field Consultant: Malika Cummins MA Preop diagnosis: Right lower [...] Case Report Surgical Pathology Report ? Case: [id number] ? Authorizing Provider: ??Markos Mckinley, ? Collected: ? 12/22/2020 12:29 PM ? Ordering Location: ? [facility] - ?Received: ?12/22/2020 12:29 PM ? General Surgery - [place] ? Pathologist: ? Evangelina Carlos, ? MD ? Specimen: ?Leg, Right leg skin lesion ? 12/23/2020 4:19 PM CDT [facility] FINAL DIAGNOS[facility] Skin, Right Leg, Lesion, Excision: - Angiokeratoma. - Negative for malignancy. 12/23/2020 4:19 PM CDT [facility] Gross Description A. Right leg skin [...] cassette A1. CP/sb 12/23/2020 4:19 PM CDT [facility] Microscopic Description 2 H&E. Microscopic examination supports the diagnosis. No epithelial or other atypia is identified. SES/sb 12/23/2020 4:19 PM CDT [facility] Other LOWER LIMB STRUCTURE / Unknown Non-Phlebotomy Collection / Unknown 12/22/2020 12:29 PM CDT 12/22/2020 12:29 PM CDT us Markos Mckinley MD PATHOLOGY/CYTOLOGY ORDERABLES Fi nal Result Performing Organization Address City/State/[facility] Co de Phone Number [facility] [address] [place] [address] * EXC SKIN BENIG 1.1-2CM TRUNK,ARM,LEG (12/22/2020 11:15 AM CDT) Narrative Markos Mckinley MD - 12/22/2020 11:15 AM CDT Markos Mckinley MD ? 12/22/2020 ??1:00 PM Surgeon:Markos Mckinley MD Franchise Field Consultant: ??Malika Cummins MA Preop diagnosis: ??Right lower [...] Action Date Dose Rate Site lidocaine-EPINEPHrine 1 %-1:720095 injection 3 mL 3 mL, Injection, ONCE, 1 dose, On Sun12/22/20 at 1300Indications:Skin lesion of right leg Given 12/22/2020 12:43 PM CDT 3 mL documented in this encounter Care Teams Worm Picker Relationship Specialty Start Date End Date Leonardo Nuñez, PAC [address] [place] [address] PCP - General Physician Franchise Field Consultant 11/24/15 documented as of this encounter
--- OUTSIDE RECORDS SUMMARY | 2024-08-13 23:53 | XMS_ITS | Encounter Summary ---
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
--- OUTSIDE RECORDS SUMMARY | 2024-08-13 23:53 | XMS_ITS | Encounter Summary ---
Author Organization [facility] Address [address] 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 [address] [place] [address] PCP - General Physician Staple Processing Machine Operator 11/24/15 documented as of this encounter
--- OUTSIDE RECORDS SUMMARY | 2024-08-13 23:53 | XMS_ITS | Clinical Summary ---
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
== END 2024-08-06 19:45 | disposition home or self-care (01) ==
PROVIDERS: Emergency Provider Emergency Medicine; PCP Physician Assistant
DX: L03.115 Cellulitis of right lower limb (principal); I89.0 Lymphedema, not elsewhere classified; E66.01 Morbid (severe) obesity due to excess calories; Z68.45 Body mass index [BMI] 70 or greater, adult; I10 Essential (primary) hypertension; E78.00 Pure hypercholesterolemia, unspecified; F17.290 Nicotine dependence, other tobacco product, uncomplicated
CPT/HCPCS: 96372; 99283; J0696; J2003

== ENCOUNTER 2025-07-13 11:52 | Emergency (ER) | payer MEDICARE, MEDICAID, SELFPAY ==
[2025-07-13 11:52] VITALS: BP 157/79; PULSE 95; RESP 16; TEMP 36.3; O2SAT 97
--- NOTE | 2025-07-13 11:55 | ED.GENADULT ---
HPI - General Adult General Chief complaint: Skin/Abscess/Foreign Body Stated complaint: CELLULITIS Time Seen by Provider: 07/13/25 11:55 Source: patient Mode of arrival: ambulatory Limitations: no limitations History of Present Illness HPI narrative: 45 years old white male came to the ED from home by private car with his family complaining of redness of the right thigh started this morning. History of right leg lymphedema. He denies any fever, chills, nausea vomiting or unusual pain at the right lower leg. Patient have similar symptoms roughly every 6 months secondary to cellulitis and usually gets better on Keflex. Related Data Home Medications ?Medication ?Instructions ?Recorded ?Confirmed ?Last Taken ?Type simvastatin 40 mg tablet 40 mg PO DAILY 07/18/19 08/06/24 01/04/24 History triamterene 75 1 tablet PO DAILY 07/18/19 08/06/24 01/04/24 History mg-hydrochlorothiazide 50 mg tablet fluticasone propionate 50 2 spray intranasal Q12H 08/06/24 08/06/24 Unknown History mcg/actuation nasal spray,suspension lorazepam 1 mg tablet 1 mg PO QHS PRN anxiety 08/06/24 08/06/24 Unknown History Allergies Allergy/AdvReac Type Severity Reaction Status Date / Time No Known Allergies Allergy Verified 07/13/25 11:56 Review of Systems Review of Systems: All systems reviewed & are unremarkable except as noted in HPI and below PMFSH Past Medical History Medical History (Updated 07/13/25 @ 12:59 by Adolfo Wan MD) Non-nicotine vapor product user Vapes nicotine containing substance Cigarette smoker Hypersomnia with sleep apnea Backache Lumbar radiculopathy, chronic 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 Cellulitis of lower limb Internal hemorrhoid, bleeding Hematochezia Respiratory obstruction Otitis externa Hypercholesterolemia Hypertension Lymphedema Morbid exogenous obesity Surgical History Surgical History No history of previous surgery Family History Family History Mother COPD (chronic obstructive pulmonary disease) Hypertension Heart disease Hyperlipidemia Father Hypertension Social History Social History Years smoked: 20 Smoking status: Current every day smoker Tobacco type: e-cigarettes/vaping Second hand tobacco smoke exposure: Yes Alcohol intake: never Drinks per week: 1 Substance use: never Substance use type: does not use Gender identity (if verbalized by the patient): Male Spiritual care concerns: No Agree to blood products: Yes Exam Narrative: General appearance: Well-developed, well-nourished Skin: Normal color Head: Normocephalic, nontraumatic Eyes: Clear conjunctiva ENT: Oropharynx normal, ears normal, nose normal Neck: Supple, nontender Chest and respiratory: Airway patent, no respiratory distress, no accessory muscle use Heart: Regular rate/rhythm Abdomen: Soft, nontender, no organomegaly, quiet bowel sounds Vascular: Normal peripheral pulses, normal capillary refill. Musculoskeletal: Right lower extremity showed large size thigh, lymphedema, chronic thick right of dry skin anterior laterally with diffuse erythema, warm to touch, no tenderness, no discharge Neurologic: Alert and oriented ?3, CYLINDER DIE MACHINE HELPER is normal as tested, no gross motor deficit Course Vital Signs Vital signs: Vital Signs Temperature 36.3 C L 07/13/25 11:52 Pulse Rate 95 07/13/25 11:52 Respiratory Rate 16 07/13/25 11:52 Blood Pressure 157/79 H 07/13/25 11:52 Pulse Oximetry 97 07/13/25 11:52 Oxygen Delivery Room Air 07/13/25 11:52 Temperature 36.3 C L 07/13/25 11:52 Pulse Rate 95 07/13/25 11:52 Respiratory Rate 16 07/13/25 11:52 Blood Pressure 157/79 H 07/13/25 11:52 Pulse Oximetry 97 07/13/25 11:52 Oxygen Delivery Room Air 07/13/25 11:52 Medical Decision Making [facility] Narrative Medical decision making narrative: Patient presents with redness of the right thigh started early today, Vital signs showing blood pressure 157/79 otherwise within normal limit Physical examination showing erythematous changes on right thigh anteriorly medially with right leg lymphedema. Differential diagnosis includes cellulitis. Blood workup today includes CBC, CMP showed WBC 15.6 otherwise within normal limit Patient have history of lymphedema of the right lower extremity which increases the risk of cellulitis because the swelling stretches and thins the skin causing minor cuts, scrapes. Making it easier for bacteria to enter and harder for the immune system to respond. Diagnosis lymphedema, cellulitis right lower extremity The pt was discharged to home.the pt,s condition upon discharge was fair,education was provided to the pt in reference to the final impression,discharge study results,treatment,prognosis and need for follow up . Differential Diagnosis Differential Diagnosis: As above Vital Signs Vital Signs: Vital Signs Temperature 36.3 C L 07/13/25 11:52 Pulse Rate 95 07/13/25 11:52 Respiratory Rate 16 07/13/25 11:52 Blood Pressure 157/79 H 07/13/25 11:52 Pulse Oximetry 97 07/13/25 11:52 Oxygen Delivery Room Air 07/13/25 11:52 Temperature 36.3 C L 07/13/25 11:52 Pulse Rate 95 07/13/25 11:52 Respiratory Rate 16 07/13/25 11:52 Blood Pressure 157/79 H 07/13/25 11:52 Pulse Oximetry 97 07/13/25 11:52 Oxygen Delivery Room Air 07/13/25 11:52 Lab Data 07/13/25 12:04 07/13/25 12:04 Labs: Lab Results 07/13/25 Range/Units 12:04 WBC 15.6 H (4.8-10.8) K/mm3 RBC 5.31 (4.70-6.10) M/mm3 Hgb 15.9 (14.0-18.0) g/dL Hct 47.9 (40.0-54.0) % MCV 90.2 (78.0-102.0) fL MCH 29.9 (27.0-31.0) pg MCHC 33.2 (32-36) g/dL RDW 14.0 (11.6-14.4) % Plt Count 129 L (150-420) K/mm3 MPV 9.4 (8.7-11.0) fl Immature Gran % (Auto) 0.6 H (0.0-0.0) % Neut % (Auto) 92.7 H (50.0-70.0) % Lymph % (Auto) 2.8 L (18.0-42.0) % Hood % (Auto) 3.5 (2.0-11.0) % Eos % (Auto) 0.0 L (1.0-6.0) % Baso % (Auto) 0.4 (0.0-1.0) % Lymph # (Auto) 0.44 L (1.10-4.50) K/mm3 Hood # (Auto) 0.55 (0.10-0.90) K/mm3 Eos # (Auto) 0.00 L (0.02-0.50) K/mm3 Baso # (Auto) 0.06 (0.00-0.10) K/mm3 Abs Immat Gran (auto) 0.10 H (0.00-0.00) K/mm3 Absolute Neuts (auto) 14.44 H (1.70-7.20) K/mm3 Absolute Nucleated RBC 0.00 (0.00-0.00) K/mm3 Nucleated RBC % 0.0 (0-0.0) % Sodium 142 (137-145) mmol/L Potassium 3.4 (3.4-5.0) mmol/L Chloride 100 (98-107) mmol/L Carbon Dioxide 33 H (22-30) mmol/L Anion Gap 9 (4-12) mmol/L BUN 18 (9-20) mg/dL Creatinine 1.10 (0.7-1.3) mg/dL Estim Creat Clear Calc 135 ml/min Estimated GFR > 60 (59 - ) Glucose 120 H (65-110) mg/dL Calculated Osmolality 296 H (285-295) mOsm/kg Calcium 8.8 (8.4-10.2) mg/dL Total Bilirubin 2.1 H (0.2-1.3) mg/dL AST 21 (17-59) U/L ALT 25 (6-50) U/L Alkaline Phosphatase 52 (38-126) U/L Total Protein 7.8 (6.3-8.2) g/dL Albumin 4.6 (3.5-5.1) g/dL Critical Care Time Critical Care Time Critical Care Time: No Discharge Plan Discharge Clinical Impression: Cellulitis of leg, right, Lymphedema Patient Disposition: Home Condition: Stable Instructions: Antibiotic Form, Cellulitis (ED) Additional Instructions: Return if symptoms are worsening , call your family physician for appointment, take Tylenol, ibuprofen as as needed for aches and pain, continue home medications. Keep leg elevated Patient Language: Lithuanian Prescriptions: New cephalexin 500 mg capsule 500 mg PO Q6H 10 Days Qty: 40 0RF No Action simvastatin 40 mg Tablet 40 mg PO DAILY triamterene-hydrochlorothiazid 75-50 mg Tablet 1 tablet PO DAILY fluticasone propionate 50 mcg/actuation spray,suspension 2 spray INTRANASAL Q12H lorazepam 1 mg tablet 1 mg PO QHS PRN (Reason: anxiety) clindamycin HCl 300 mg capsule 300 mg PO Q6H 10 Days Qty: 40 0RF Follow-up/Referrals: Joaquin,DELMA Holman [Primary Care Provider]
[2025-07-13 12:08] LABS: Hematocrit 47.9 % (40.0-54.0); Hemoglobin 15.9 g/dL (14.0-18.0); Immature Granulocyte Percent A 0.6 % (0.0-0.0); Lymphocytes Absolute Auto 0.44 K/mm3 (1.10-4.50); Mean Corpuscular HGB Conc 33.2 g/dL (32-36); Mean Corpuscular Hemoglobin 29.9 pg (27.0-31.0); Mean Corpuscular Volume 90.2 fL (78.0-102.0); Nucleated Red Blood Cells Absolute Auto 0.00 K/mm3 (0.00-0.00); Nucleated Red Blood Cells Perc 0.0 % (0-0.0); Platelet Count Result 129 K/mm3 (150-420); Red Blood Count 5.31 M/mm3 (4.70-6.10); White Blood Count 15.6 K/mm3 (4.8-10.8)
[2025-07-13 12:19] LABS: Alanine Aminotransferase 25 U/L (6-50); Albumin Level 4.6 g/dL (3.5-5.1); Alkaline Phosphatase 52 U/L (38-126); Anion Gap 9 mmol/L (4-12); Aspartate Amino Transferase 21 U/L (17-59); Bilirubin,Total 2.1 mg/dL (0.2-1.3); Blood Urea Nitrogen 18 mg/dL (9-20); Calcium 8.8 mg/dL (8.4-10.2); Carbon Dioxide 33 mmol/L (22-30); Chloride 100 mmol/L (98-107); Estimated CRCL calculation 135 ml/min; Estimated Glomerular Filt Rate > 60; Glucose 120 mg/dL (65-110); Osmolality Calculated 296 mOsm/kg (285-295); Potassium 3.4 mmol/L (3.4-5.0); Sodium 142 mmol/L (137-145); Total Protein 7.8 g/dL (6.3-8.2)
[2025-07-13 12:48] VITALS: BP 157/79; PULSE 95; RESP 16; TEMP 36.3; O2SAT 97
--- OUTSIDE RECORDS SUMMARY | 2025-07-13 13:18 | XMS_ITS | Clinical Summary ---
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 Gender Identity Not on file Sexual Orientation Not on file Last Filed Vital Signs Vital Sign Reading Time Taken Comments Blood Pressure 126/84 01/04/2021 1:49 PM CDT Pulse 79 01/04/2021 1:49 PM CDT Temperature 36.6 C (97.8 F) 01/04/2021 1:49 PM CDT Respiratory Rate 16 01/04/2021 1:49 PM CDT Oxygen Saturation 94% 01/04/2021 1:49 PM CDT Inhaled Oxygen Concentration - - Weight 228.2 kg (503 lb) 01/04/2021 1:49 PM CDT Height 175.3 cm (5' 9) 01/04/2021 1:49 PM CDT Body Mass Index 74.28 01/04/2021 1:49 PM CDT Plan of Treatment Health Maintenance Due Date Last Done Comments Hepatitis C Virus (HCV) Screening 1979 TdaP Immunization 1979 Hepatitis B Immunization (1 of 3 - 19+ 3-dose series) 1998 Medicare Initial AWV [id number] 06/13/2016 Cologuard 2024 Immunochemical Fecal Occult Blood 2024 Influenza Immunization (#1) 2025 06/16/2019 SARS-COV-2 Immunization ( season) 2025 Colonoscopy 10/29/2028 10/29/2018, 09/30/2015 Colorectal Cancer Screening 10/29/2028 Respiratory Syncytial Virus (RSV) Immunization (Adult) (1 - 1-dose 75+ series) 2054 Human Papillomavirus (HPV) Immunization Aged Out No longer eligible b ased on patient's age to complete this topic Meningococcal Immunization (ACWY) Aged Out No longer [...] Health Maintenance Results * HM COLONOSCOPY (09/30/2015) Sunil Manuel MD PROCEDURE/MINOR SURGICAL ORDER [place]IRAG Final Result from Last 3 Months or Most Recently Relevant to Health Maintenance Insurance MEDICARE MEDICAID [place] Care Teams Telecommunications Equipment Installer Relationship Specialty Start Date End Date Sukhwinder Nuñez PAC [address] [place] [address] PCP - General Physician Corrective Therapy Aide 11/24/15
--- OUTSIDE RECORDS SUMMARY | 2025-07-13 13:18 | XMS_ITS | Encounter Summary ---
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
--- OUTSIDE RECORDS SUMMARY | 2025-07-13 13:18 | XMS_ITS | Clinical Summary ---
Author Organization [facility] Address [facility] [place] [address] Care Team Providers Care Quality Assurance Assessor Name Role Phone Sukhwinder Nuñez Primary Care Provider [phone] Allergies No known active allergies Medications simvastatin 40 MG tablet Take 40 mg by mouth daily. Active triamterene-hyd rochlorothiazid e 75-50 MG tablet Take 1 tablet by mouth daily. Active LORazepam (ATIVAN) 1 MG tablet Take 1 tablet (1 mg total) by mouth nightly as needed. 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 Gender Identity Not on file Sexual Orientation Not on file Last Filed Vital Signs Vital Sign Reading Time Taken Comments Blood Pressure 133/70 08/03/2024 7:55 PM RESTAURANT BARTENDER Pulse 99 08/03/2024 7:15 PM RESTAURANT BARTENDER Temperature 36.5 C (97.7 F) 08/03/2024 7:15 PM RESTAURANT BARTENDER Respiratory Rate 16 08/03/2024 7:15 PM RESTAURANT BARTENDER Oxygen Saturation 93% 08/03/2024 7:55 PM RESTAURANT BARTENDER Inhaled Oxygen Concentration - - Weight 235.2 kg (518 lb 9.6 oz) 08/03/2024 7:15 PM RESTAURANT BARTENDER Height 175.3 cm (5' 9) 08/03/2024 7:15 PM RESTAURANT BARTENDER Body Mass Index 76.58 08/03/2024 7:15 PM RESTAURANT BARTENDER Plan of Treatment Health Maintenance Due Date Last Done Comments Colorectal Cancer Screening Colonoscopy (10 Years) 1979 Annual Physical 1982 Hepatitis C 1997 Hepatitis B Vaccines (1 of 3 - 19+ 3-dose series) 1998 Pneumococcal Vaccine: Pediatrics (0 to 5 Years) and At-Risk Patients (6 to 49 Years) (1 of 2 - PCV) 1998 COVID-19 Vaccine ( - 2024-2 6 season) 2025 Influenza Adult (#1) 2025 06/13/2022, 06/16/2019 DTaP, Tdap and Td Vaccines ( 2 - Td or Tdap) 10/05/2027 10/05/2017 Hepatitis A Vaccines Aged Out No long er eligible based on patient's age to complete this topic Meningococcal B Vaccine Aged Out No l onger eligible based on patient's age to complete this topic Meningococcal Vaccine Aged Out No kedar daniel eligible based on patient's age to complete this topic RSV Immunizations Under 20 Months Aged Out No longer eligible b ased on patient's age to complete this topic Insurance [facility] MEDICARE MEDICAID Care Teams Quality Assurance Assessor Relationship Specialty Start Date End Date Sukhwinder Nuñez PA PCP - General PHYSICIAN SHEEP FARMER 05/03/19
== END 2025-07-13 12:48 | disposition home or self-care (01) ==
PROVIDERS: Emergency Provider Emergency Medicine; PCP Physician Assistant
DX: L03.115 Cellulitis of right lower limb (principal); I89.0 Lymphedema, not elsewhere classified; I10 Essential (primary) hypertension; F17.290 Nicotine dependence, other tobacco product, uncomplicated
CPT/HCPCS: 36415; 80053; 85025; 96374; 99284; J0690